=== PATIENT | male | born 1950 | race Caucasian/White ===

== ENCOUNTER 2020-05-25 12:49 | Outpatient (RCR) | payer MEDICARE, MEDICAID, SELFPAY | END 2020-08-03 11:00 | disposition home or self-care (01) | LOC: HO.WCC 12:49 | PROVIDERS: PCP Physician Assistant; Visit Provider Physician Assistant | DX: L89.153 Pressure ulcer of sacral region, stage 3 (principal); L89.151 Pressure ulcer of sacral region, stage 1; K61.39 Other ischiorectal abscess; F20.9 Schizophrenia, unspecified; B19.20 Unspecified viral hepatitis C without hepatic coma; Z79.2 Long term (current) use of antibiotics | CPT/HCPCS: 10060; 11042; 97597; 99212; 99213; 99214 ==

== ENCOUNTER 2020-06-19 08:29 | Outpatient (REF) | payer MEDICARE, MEDICAID, SELFPAY ==
[2020-06-19 09:20] LABS: Hematocrit 48.2 % (42-52); Hemoglobin 16.5 g/dl (14.0-18.0); Mean Corpuscular HGB Conc 34.2 g/dl (31.0-36.0); Mean Corpuscular Hemoglobin 32.9 pg (27.0-33.0); Mean Platelet Volume 9.2 fL (9.4-12.4); Platelet Count 192 X10*3/uL (160-400); Red Blood Count 5.02 X10*6/uL (4.60-5.80); Red Cell Distribution Width 13.2 % (11.0-16.0); White Blood Count 4.3 X10*3/uL (4.8-10.8)
[2020-06-19 09:25] LABS: Estimated Average Glucose 91 mg/dL; Hemoglobin A1c % 4.8 %
[2020-06-19 09:40] LABS: Alanine Aminotransferase 97 U/L (0-40); Albumin Level 4.3 g/dL (3.5-5.0); Alkaline Phosphatase 72 U/L (39-117); Anion Gap 14 (12-20); Aspartate Amino Transferase 55 U/L (5-37); Bilirubin Total 1.3 mg/dL (0.0-1.0); Blood Urea Nitrogen 32 mg/dL (9-16); Carbon Dioxide 23 mmol/L (22-29); Chloride 109 mmol/L (96-108); Cholesterol 183 mg/dL; Estimated Glomerular Filt Rate 42; Glucose Fasting 97 mg/dL (60-99); HDL Cholesterol 46 mg/dL; LDL Cholesterol Calculated 112 mg/dl; Sodium 141 mmol/L (135-145); Triglycerides 128 mg/dL
[2020-06-19 10:02] LABS: TSH reflex Free T4 1.55 uIU/mL (0.32-4.0)
[2020-06-21 15:21] LABS: HCV Log PCR 5.38 Log IU/mL (NOT DETECTED); HepC Viral Load 241000 IU/mL (NOT DETECTED)
== END 2020-06-19 08:30 | disposition home or self-care (01) ==
LOC: HO.LAB 08:29
PROVIDERS: PCP Physician Assistant; Visit Provider Physician Assistant
DX: I10 Essential (primary) hypertension (principal); B18.2 Chronic viral hepatitis C; E03.9 Hypothyroidism, unspecified
CPT/HCPCS: 36415; 80053; 80061; 83036; 84443; 85027; 87522

== ENCOUNTER 2020-07-08 19:25 | Emergency (ER) | payer MEDICARE, MEDICAID, SELFPAY ==
--- NOTE | ~2020-07-08 | XR_ITS ---
EXAMINATION: XR CHEST CLINICAL INFORMATION: Altered mental status. COMPARISON: None TECHNIQUE: Frontal view of the chest was obtained. FINDINGS: Linear scarring versus atelectasis in the right lung base. No focal airspace consolidation. No pleural effusion or pneumothorax. Unremarkable cardiomediastinal silhouette. No acute osseous abnormality. XR/XR chest 1V IMPRESSION: Linear scarring versus atelectasis in the right lung base.
--- NOTE | 2020-07-08 19:31 | ED.AMS ---
HPI - Altered Mental Status General Chief Complaint: General Medical Stated Complaint: ams Time Seen by Provider: 07/08/20 19:30 Source: EMS and RN notes reviewed Mode of arrival: other Limitations: altered mental status History of Present Illness HPI narrative: Patient is 70 years old with history of schizophrenia, alcohol abuse, abd aortic aneurysm, hypothyroidism, hypertension, wheelchair dependent and minimal communicative sent from snf for decrease sensorium less communicative than before Related Data Home Medications Medication Instructions Recorded Confirmed facial-body wipes #384 ea 06/11/20 07/03/20 Previous Rx's Medication Instructions Recorded acetaminophen 650 mg 650 mg PO Q12H PRN #90 tab 05/18/20 tablet,extended release polyethylene glycol 3350 17 17 g PO DAILY #238 g 05/18/20 gram/dose oral powder artifi.tears(hypromellose)(PF) 0.3 1 drp OPHTHALMIC (EYE) BEDTIME PRN 06/11/20 % eye drops 30 Days #10 ml aspirin 81 mg tablet,delayed 81 mg PO DAILY #90 tab 06/11/20 release cholecalciferol (vitamin D3) 1,250 1,250 mcg PO .QMONTH #12 cap 06/11/20 mcg (50,000 unit) capsule citalopram 10 mg tablet 10 mg PO DAILY 90 Days #90 tab 06/11/20 citalopram 20 mg tablet 20 mg PO DAILY 90 Days #90 tab 06/11/20 disposable gloves #1000 ea 06/11/20 enalapril maleate 5 mg tablet 5 mg PO DAILY #90 tab 06/11/20 famotidine 20 mg tablet 20 mg PO DAILY #90 tab 06/11/20 hydrocortisone 1 % topical cream 1 appl TOPICAL BID #28.4 g 06/11/20 incontinence pad, liner, disp #400 ea 06/11/20 levothyroxine 75 mcg tablet 75 mcg PO DAILY #90 tab 06/11/20 loperamide 2 mg capsule 2 mg PO BEDTIME PRN #30 cap 06/11/20 lorazepam 0.5 mg tablet 0.5 mg PO BID 30 Days #60 tab 06/11/20 ziprasidone HCl 80 mg capsule 80 mg PO BID 90 Days #180 cap 06/11/20 amlodipine 10 mg tablet 10 mg PO DAILY #90 tab 07/03/20 miscellaneous medical supply 1 ea MISCELLANEOUS ONCE 99 Days #1 07/03/20 ea olanzapine 10 mg tablet 10 mg PO BEDTIME 90 Days #90 tab 07/03/20 olanzapine 20 mg tablet 20 mg PO BEDTIME 90 Days #90 tab 07/03/20 Allergies Allergy/AdvReac Type Severity Reaction Status Date / Time clozapine Allergy Unknown Unknown Verified 07/03/20 10:00 [facility] Past Medical History Medical History Essential (primary) hypertension Hepatitis C Schizophrenia, unspecified Wound, open, buttock Surgical History No history of previous surgery Social History Social History Alcohol intake: unknown Patient Tobacco Use Status: Tobacco use Unknown Use of substances other than those prescribed or required for medical reasons: Unknown Discharge Plan Discharge Prescriptions: No Action (DME) facial-body wipes Misc See Rx Instructions .ROUTE .MEDSUPPLY Qty: 384 RF: 0 acetaminophen 650 mg tablet extended release 650 mg PO Q12H PRN (Reason: fever or pain) Qty: 90 RF: 0 polyethylene glycol 3350 17 gram/dose powder 17 g PO DAILY Qty: 238 RF: 0 olanzapine 20 mg tablet 20 mg PO BEDTIME 90 Days Qty: 90 RF: 1 olanzapine 10 mg tablet 10 mg PO BEDTIME 90 Days Qty: 90 RF: 1 amlodipine 10 mg tablet 10 mg PO DAILY Qty: 90 RF: 1 miscellaneous medical supply [facility] 1 ea miscellaneous ONCE 99 Days Qty: 1 RF: 0 levothyroxine 75 mcg tablet 75 mcg PO DAILY Qty: 90 RF: 1 aspirin [Adult Low Dose Aspirin] 81 mg tablet,delayed release (DR/EC) 81 mg PO DAILY Qty: 90 RF: 1 cholecalciferol (vitamin D3) 1,250 mcg (50,000 unit) capsule 1,250 mcg PO .QMONTH Qty: 12 RF: 1 citalopram 20 mg tablet 20 mg PO DAILY 90 Days Qty: 90 RF: 1 citalopram 10 mg tablet 10 mg PO DAILY 90 Days Qty: 90 RF: 1 enalapril maleate 5 mg tablet 5 mg PO DAILY Qty: 90 RF: 1 famotidine 20 mg tablet 20 mg PO DAILY Qty: 90 RF: 1 loperamide 2 mg capsule 2 mg PO BEDTIME PRN (Reason: loose stool) Qty: 30 RF: 0 hydrocortisone 1 % cream 1 appl topical BID Qty: 28.4 RF: 0 lorazepam 0.5 mg tablet 0.5 mg PO BID 30 Days Qty: 60 RF: 3 ziprasidone HCl 80 mg capsule 80 mg PO BID 90 Days Qty: 180 RF: 1 artifi.tears(hypromellose)(PF) 0.3 % drops 1 drp ophthalmic (eye) BEDTIME PRN (Reason: dry eye(s)) 30 Days Qty: 10 RF: 1 (DME) disposable gloves [Biobrane Gloves Large] Misc See Rx Instructions .ROUTE .MEDSUPPLY Qty: 1000 RF: 1 (DME) incontinence pad, liner, disp Pad See Rx Instructions .ROUTE .MEDSUPPLY Qty: 400 RF: 1
[2020-07-08 19:39] VITALS: BP 139/71; PULSE 86; RESP 14; TEMP 36.9; O2SAT 95; BMI 19.4
[2020-07-08 19:44] VITALS: BP 139/71; PULSE 86; RESP 14; TEMP 36.9; O2SAT 95
[2020-07-08 20:01] LABS: MANUAL DIFF FLAG NO
[2020-07-08 20:05] LABS: Basophils Percent Auto 0.6 % (0-2); Eosinophils Absolute Auto 0.1 X10*3/uL (0.0-0.4); Eosinophils Percent Auto 3.4 % (0-4); Hematocrit 42.7 % (42-52); Hemoglobin 14.9 g/dl (14.0-18.0); Imm Gran Abs Auto 0.03 X10*3/uL (0.00-0.03); Imm Gran Pct Auto 0.9 % (0.0-0.4); Lymphocytes Absolute Auto 0.8 X10*3/uL (1.2-4.9); Lymphocytes Percent Auto 21.6 % (20-40); Mean Corpuscular HGB Conc 34.9 g/dl (31.0-36.0); Mean Corpuscular Hemoglobin 33.3 pg (27.0-33.0); Mean Corpuscular Volume 95.3 fL (80-98); Monocytes Absolute Auto 0.5 X10*3/uL (0.1-1.2); Monocytes Percent Auto 14.8 % (2-11); Neutrophils Absolute Auto 2.1 X10*3/uL (2.0-8.3); Neutrophils Percent Auto 58.7 % (45-73); Platelet Count 165 X10*3/uL (160-400); Red Blood Count 4.48 X10*6/uL (4.60-5.80); Red Cell Distribution Width 12.7 % (11.0-16.0); White Blood Count 3.5 X10*3/uL (4.8-10.8)
[2020-07-08 20:08] LABS: Prothrombin Time 12.2 SEC (10.8-13.0)
--- NOTE | 2020-07-08 20:11 | ED.NAVMDI ---
HPI - Nausea/Vomiting/Diarrhea General Chief complaint: General Medical Stated complaint: ams Time Seen by Provider: 07/08/20 19:30 Source: patient, EMS and RN notes reviewed Mode of arrival: EMS Limitations: altered mental status History of Present Illness HPI Narrative: Patient is 70 years old with history of schizophrenia, alcohol abuse, abd aortic aneurysm, hypothyroidism, hypertension, wheelchair dependent and minimal communicative sent from long-term for diarrhea all day with multiple bowel movements and small amount of bright red blood also noticed low-grade fever 100. No cough no vomiting no recent use of antibiotics patient has a small sacral wound which is healing. No history of fall no shortness of breath or cough Related Data Home Medications Medication Instructions Recorded Confirmed facial-body wipes #384 ea 06/11/20 07/03/20 Previous Rx's Medication Instructions Recorded acetaminophen 650 mg 650 mg PO Q12H PRN #90 tab 05/18/20 tablet,extended release polyethylene glycol 3350 17 17 g PO DAILY #238 g 05/18/20 gram/dose oral powder artifi.tears(hypromellose)(PF) 0.3 1 drp OPHTHALMIC (EYE) BEDTIME PRN 06/11/20 % eye drops 30 Days #10 ml aspirin 81 mg tablet,delayed 81 mg PO DAILY #90 tab 06/11/20 release cholecalciferol (vitamin D3) 1,250 1,250 mcg PO .QMONTH #12 cap 06/11/20 mcg (50,000 unit) capsule citalopram 10 mg tablet 10 mg PO DAILY 90 Days #90 tab 06/11/20 citalopram 20 mg tablet 20 mg PO DAILY 90 Days #90 tab 06/11/20 disposable gloves #1000 ea 06/11/20 enalapril maleate 5 mg tablet 5 mg PO DAILY #90 tab 06/11/20 famotidine 20 mg tablet 20 mg PO DAILY #90 tab 06/11/20 hydrocortisone 1 % topical cream 1 appl TOPICAL BID #28.4 g 06/11/20 incontinence pad, liner, disp #400 ea 06/11/20 levothyroxine 75 mcg tablet 75 mcg PO DAILY #90 tab 06/11/20 loperamide 2 mg capsule 2 mg PO BEDTIME PRN #30 cap 06/11/20 lorazepam 0.5 mg tablet 0.5 mg PO BID 30 Days #60 tab 06/11/20 ziprasidone HCl 80 mg capsule 80 mg PO BID 90 Days #180 cap 06/11/20 amlodipine 10 mg tablet 10 mg PO DAILY #90 tab 07/03/20 miscellaneous medical supply 1 ea MISCELLANEOUS ONCE 99 Days #1 07/03/20 ea olanzapine 10 mg tablet 10 mg PO BEDTIME 90 Days #90 tab 07/03/20 olanzapine 20 mg tablet 20 mg PO BEDTIME 90 Days #90 tab 07/03/20 Allergies Allergy/AdvReac Type Severity Reaction Status Date / Time clozapine Allergy Unknown Unknown Verified 07/03/20 10:00 Review of Systems Review of Systems: Limited ROS because patient denies any complaints although he is having diarrhea at detention Neurologic: Reports confusion Psychiatric: Psychiatric: Reports confusion [facility] Past Medical History Medical History Essential (primary) hypertension Hepatitis C Schizophrenia, unspecified Wound, open, buttock Surgical History No history of previous surgery Social History Social History Alcohol intake: unknown Patient Tobacco Use Status: Tobacco use Unknown Use of substances other than those prescribed or required for medical reasons: Unknown Advance Directives: No Advance Directives Information Provided: No Physical Exam Vital Signs: Vital Signs: Last Vital Signs Temp 98.4 F 07/08/20 19:44 Pulse 86 07/08/20 19:44 Resp 14 07/08/20 19:44 BP 139/71 07/08/20 19:44 Pulse Ox 95 07/08/20 19:44 Body Mass Index 19.4 Const: General: comfortable, no acute distress and confusion Nutritional Appearance: thin and underweight Orientation/consciousness: oriented to person, oriented to place and confusion HENMT: Head: Yes normocephalic and Yes atraumatic Ears: hearing grossly normal bilaterally General nose exam: Normal external nose present Face and sinus: Yes normal facial exam Mouth: Normal oral and palatal mucosa present Eyes: General: appearance normal, both eyes and all related structures Conjunctivae: conjunctivae normal Sclerae: sclerae normal Neck: Neck: Yes normal visual inspection Chest: Chest palpation & inspection: normal inspection of the chest Resp: Effort & Inspection: normal respiratory effort Auscultation: clear to auscultation bilaterally Cardio: Palpation: normal PMI Rate: regular rate Rhythm: regular rhythm Heart sounds: S1 normal heart sound present and S2 normal heart sound present Peripheral pulses: Peripheral pulses 2+ throughout GI: Inspection: Yes normal to inspection Palpation (GI): Soft to palpation, nontender and no guarding Auscultation: normal bowel sounds Rectal Exam - Male: Yes visual inspection normal, Yes normal sphincter tone, Yes Abnormal stool present (Loose brown stool) and Yes heme negative stool : General: Yes no CVA tenderness Back/Spine/Pelvis: Back: no CVA tenderness Thoracic/Lumbar Spine: thoracic and lumbar spine normal to inspection Skin: Other: Small sacral decubiti oozing small amount of blood Neuro: Other: Limited lower extremity movements General: oriented to person, oriented to place, moves all extremities, CN's II-XI intact bilaterally and confusion Extrem: General: Yes normal to inspection and Yes no calf tenderness MDM - Nausea/Vomiting/Diarrhea MDM Narrative Medical decision making narrative: Patient with stable labs chest x-ray negative, urine is negative patient did not have any BM in the ER will check for COVID Lab Data Attestation: I reviewed the patient's lab results. Result diagrams: 07/08/20 19:57 07/08/20 19:57 Labs: Lab Results 07/08/20 07/08/20 07/08/20 Range/Units 19:57 19:57 19:57 WBC 3.5 L (4.8-10.8) X10*3/uL RBC 4.48 L (4.60-5.80) X10*6/uL Hgb 14.9 (14.0-18.0) g/dl Hct 42.7 (42-52) % MCV 95.3 (80-98) fL MCH 33.3 H (27.0-33.0) pg MCHC 34.9 (31.0-36.0) g/dl RDW 12.7 (11.0-16.0) % Plt Count 165 (160-400) X10*3/uL MPV 9.0 L (9.4-12.4) fL Immature Gran % (Auto) 0.9 H (0.0-0.4) % Neut % (Auto) 58.7 (45-73) % Lymph % (Auto) 21.6 (20-40) % [place] % (Auto) 14.8 H (2-11) % Eos % (Auto) 3.4 (0-4) % Baso % (Auto) 0.6 (0-2) % Lymph # (Auto) 0.8 L (1.2-4.9) X10*3/uL [place] # (Auto) 0.5 (0.1-1.2) X10*3/uL Eos # (Auto) 0.1 (0.0-0.4) X10*3/uL Baso # (Auto) 0.0 (0.0-0.2) X10*3/uL Abs Immat Gran (auto) 0.03 (0.00-0.03) X10*3/uL Absolute Neuts (auto) 2.1 (2.0-8.3) X10*3/uL Absolute Nucleated RBC 0.000 (0.0-0.012) X10*3/uL Nucleated RBC % (auto) 0.0 (0.0-0.2) /100WBC PT (10.8-13.0) SEC INR (0.9-1.1) Sodium 140 (135-145) mmol/L Potassium 4.5 (3.3-5.1) mmol/L Chloride 105 (96-108) mmol/L Carbon Dioxide 25 (22-29) mmol/L Anion Gap 15 (12-20) BUN 33 H (9-16) mg/dL Creatinine 1.57 H (0.5-1.4) mg/dL Estim Creat Clear Calc 43.0 Estimated GFR 44 Random Glucose 112 (60-115) mg/dL Calcium 8.8 D (8.4-10.2) mg/dL Total Bilirubin 1.0 (0.0-1.0) mg/dL Direct Bilirubin 0.4 (0.0-0.5) mg/dL AST 51 H (5-37) U/L ALT 79 H (0-40) U/L Alkaline Phosphatase 72 (39-117) U/L Ammonia 35 (13-55) umol/L Total Protein 6.9 (6.5-8.0) g/dL Albumin 3.8 (3.5-5.0) g/dL Lipase 56 (8-78) U/L Urine Color Urine Appearance Urine pH (5.0-8.0) Ur Specific [place] (1.005-1.025) Urine Protein (NEG-TRACE) MG/DL Urine Glucose (UA) (NEG) MG/DL Urine Ketones (NEG) MG/DL Urine Blood (NEG) Urine Nitrite (NEG) Ur Leukocyte Esterase (NEG) Stool Occult Blood (NEGATIVE) 07/08/20 07/08/20 07/08/20 Range/Units 19:57 20:12 20:12 WBC (4.8-10.8) X10*3/uL RBC (4.60-5.80) X10*6/uL Hgb (14.0-18.0) g/dl Hct (42-52) % MCV (80-98) fL MCH (27.0-33.0) pg MCHC (31.0-36.0) g/dl RDW (11.0-16.0) % Plt Count (160-400) X10*3/uL MPV (9.4-12.4) fL Immature Gran % (Auto) (0.0-0.4) % Neut % (Auto) (45-73) % Lymph % (Auto) (20-40) % [place] % (Auto) (2-11) % Eos % (Auto) (0-4) % Baso % (Auto) (0-2) % Lymph # (Auto) (1.2-4.9) X10*3/uL [place] # (Auto) (0.1-1.2) X10*3/uL Eos # (Auto) (0.0-0.4) X10*3/uL Baso # (Auto) (0.0-0.2) X10*3/uL Abs Immat Gran (auto) (0.00-0.03) X10*3/uL Absolute Neuts (auto) (2.0-8.3) X10*3/uL Absolute Nucleated RBC (0.0-0.012) X10*3/uL Nucleated RBC % (auto) (0.0-0.2) /100WBC PT 12.2 (10.8-13.0) SEC INR 1.0 (0.9-1.1) Sodium (135-145) mmol/L Potassium (3.3-5.1) mmol/L Chloride (96-108) mmol/L Carbon Dioxide (22-29) mmol/L Anion Gap (12-20) BUN (9-16) mg/dL Creatinine (0.5-1.4) mg/dL Estim Creat Clear Calc Estimated GFR Random Glucose (60-115) mg/dL Calcium (8.4-10.2) mg/dL Total Bilirubin (0.0-1.0) mg/dL Direct Bilirubin (0.0-0.5) mg/dL AST (5-37) U/L ALT (0-40) U/L Alkaline Phosphatase (39-117) U/L Ammonia (13-55) umol/L Total Protein (6.5-8.0) g/dL Albumin (3.5-5.0) g/dL Lipase (8-78) U/L Urine Color YELLOW Urine Appearance CLEAR Urine pH 6.0 (5.0-8.0) Ur Specific [place] 1.020 (1.005-1.025) Urine Protein NEG (NEG-TRACE) MG/DL Urine Glucose (UA) NEG (NEG) MG/DL Urine Ketones NEG (NEG) MG/DL Urine Blood NEG (NEG) Urine Nitrite NEG (NEG) Ur Leukocyte Esterase NEG (NEG) Stool Occult Blood NEGATIVE (NEGATIVE) Discharge Plan Discharge Prescriptions: No Action (DME) facial-body wipes Misc See Rx Instructions .ROUTE .MEDSUPPLY Qty: 384 RF: 0 acetaminophen 650 mg tablet extended release 650 mg PO Q12H PRN (Reason: fever or pain) Qty: 90 RF: 0 polyethylene glycol 3350 17 gram/dose powder 17 g PO DAILY Qty: 238 RF: 0 olanzapine 20 mg tablet 20 mg PO BEDTIME 90 Days Qty: 90 RF: 1 olanzapine 10 mg tablet 10 mg PO BEDTIME 90 Days Qty: 90 RF: 1 amlodipine 10 mg tablet 10 mg PO DAILY Qty: 90 RF: 1 miscellaneous medical supply Misc 1 ea miscellaneous ONCE 99 Days Qty: 1 RF: 0 levothyroxine 75 mcg tablet 75 mcg PO DAILY Qty: 90 RF: 1 aspirin [Adult Low Dose Aspirin] 81 mg tablet,delayed release (DR/EC) 81 mg PO DAILY Qty: 90 RF: 1 cholecalciferol (vitamin D3) 1,250 mcg (50,000 unit) capsule 1,250 mcg PO .QMONTH Qty: 12 RF: 1 citalopram 20 mg tablet 20 mg PO DAILY 90 Days Qty: 90 RF: 1 citalopram 10 mg tablet 10 mg PO DAILY 90 Days Qty: 90 RF: 1 enalapril maleate 5 mg tablet 5 mg PO DAILY Qty: 90 RF: 1 famotidine 20 mg tablet 20 mg PO DAILY Qty: 90 RF: 1 loperamide 2 mg capsule 2 mg PO BEDTIME PRN (Reason: loose stool) Qty: 30 RF: 0 hydrocortisone 1 % cream 1 appl topical BID Qty: 28.4 RF: 0 lorazepam 0.5 mg tablet 0.5 mg PO BID 30 Days Qty: 60 RF: 3 ziprasidone HCl 80 mg capsule 80 mg PO BID 90 Days Qty: 180 RF: 1 artifi.tears(hypromellose)(PF) 0.3 % drops 1 drp ophthalmic (eye) BEDTIME PRN (Reason: dry eye(s)) 30 Days Qty: 10 RF: 1 (DME) disposable gloves [Biobrane Gloves Large] Misc See Rx Instructions .ROUTE .MEDSUPPLY Qty: 1000 RF: 1 (DME) incontinence pad, liner, disp Pad See Rx Instructions .ROUTE .MEDSUPPLY Qty: 400 RF: 1
--- NOTE | 2020-07-08 20:16 | PC.NURSE ---
This RN spoke with Ruth Keenan from the [facility] that the [facility] at to obtain more information as to what brought the patient in today. Per Ruth the patient had multiple episodes of diarrhea today which consisted of blood in the stool. Additionally the patient had a fever per the facility and was shaking/seemingly unwell. Dr. Flor spoke to the facility as well to obtain information and this RN was told by Ruth Keenan to call her with any questions.
[2020-07-08 20:21] LABS: Ammonia 35 umol/L (13-55)
[2020-07-08] MEDS: 0.9 % Sodium Chloride 1,000 ML 999 ML IVCONT (20:22)
[2020-07-08 20:33] LABS: Alanine Aminotransferase 79 U/L (0-40); Albumin Level 3.8 g/dL (3.5-5.0); Alkaline Phosphatase 72 U/L (39-117); Anion Gap 15 (12-20); Aspartate Amino Transferase 51 U/L (5-37); Bilirubin Direct 0.4 mg/dL (0.0-0.5); Blood Urea Nitrogen 33 mg/dL (9-16); Calcium 8.8 mg/dL (8.4-10.2); Carbon Dioxide 25 mmol/L (22-29); Chloride 105 mmol/L (96-108); Estimated Glomerular Filt Rate 44; Glucose Random 112 mg/dL (60-115); Lipase 56 U/L (8-78); Potassium 4.5 mmol/L (3.3-5.1); Sodium 140 mmol/L (135-145); Total Protein 6.9 g/dL (6.5-8.0)
[2020-07-08 20:56] LABS: Appearance Urine CLEAR; Color Urine YELLOW; Glucose Urine UA NEG (NEG); Leukocyte Esterase Urine NEG (NEG); Nitrite Urine NEG (NEG); OBS Int Ctl Valid YES; OBS1 NEGATIVE (NEGATIVE); Urine Blood NEG (NEG); Urine Ketones NEG (NEG); Urine Protein NEG (NEG-TRACE)
[2020-07-08 21:28] LABS: COVID-19 Test Negative (Negative)
== END 2020-07-08 22:49 | disposition other institution (70) ==
PROVIDERS: Emergency Provider Internal Medicine
DX: K52.9 Noninfective gastroenteritis and colitis, unspecified (principal); R50.9 Fever, unspecified; Z20.822 Contact with and (suspected) exposure to COVID-19; R63.6 Underweight; L89.159 Pressure ulcer of sacral region, unspecified stage; I10 Essential (primary) hypertension; I71.4 Abdominal aortic aneurysm, without rupture; B19.20 Unspecified viral hepatitis C without hepatic coma; F20.9 Schizophrenia, unspecified; F10.10 Alcohol abuse, uncomplicated; Z99.3 Dependence on wheelchair; Z79.82 Long term (current) use of aspirin; Z79.899 Other long term (current) drug therapy
CPT/HCPCS: 36415; 51701; 71045; 80048; 80076; 81003; 82140; 82272; 83690; 85025; 85610; 87635; 96360; 99284

== ENCOUNTER → 2020-09-13 14:24 | Outpatient (BNVA) | payer MEDICARE, MEDICAID, SELFPAY | PROVIDERS: PCP Physician Assistant; Referring Provider Physician Assistant; Visit Provider Surgery | DX: K59.00 Constipation, unspecified (principal) | CPT/HCPCS: 99202 ==

== ENCOUNTER 2020-09-20 12:30 | Outpatient (REF) | payer MEDICARE, MEDICAID, SELFPAY ==
[2020-09-20 17:14] LABS: Ferritin 350 ng/mL (20-250)
[2020-09-21 04:29] LABS: HBc Num1 10.04 S/CO (0.00-0.79); HIV AB/AG Nonreactive (Nonreactive); HIV Num 1 0.07 S/CO (0.00-0.99); Hepatitis A Antibody IgG Nonreactive (Nonreactive); Hepatitis A Antibody IgM 0.14 Index (0-0.79); ~Hepatitis A Antibody IgG 0.73 S/CO (0.00-0.99); ~Hepatitis A Antibody IgM Nonreactive (Nonreactive)
[2020-09-21 04:39] LABS: HBS Num1 25.38 mIU/mL (0-7.99); ~Hepatitis B Surface Antibody REACTIVE (Nonreactive)
[2020-09-21 05:10] LABS: HBc Num2 10.54 S/CO; HBc Num3 10.41 S/CO; Hepatitis B Core Antibody Reactive (Nonreactive)
[2020-09-21 13:27] LABS: Anti Nuclear Antibody Screen NEGATIVE (NEGATIVE)
[2020-09-21 16:02] LABS: Mitochondrial Antibodies NEGATIVE (NEGATIVE)
[2020-09-24 13:17] LABS: Alpha Fetoprotein 158.3 ng/mL (<6.1)
[2020-09-25 21:41] LABS: Hepatitis C Genotype 1a
[2020-09-26 11:17] LABS: Smooth Muscle Antibody 26 U (<20)
== END 2020-09-20 12:31 | disposition home or self-care (01) ==
LOC: HO.LAB 12:30
PROVIDERS: PCP Physician Assistant; Referring Provider Physician Assistant; Visit Provider Nurse Practitioner
DX: B18.2 Chronic viral hepatitis C (principal); R74.01 Elevation of levels of liver transaminase levels; K59.00 Constipation, unspecified; K21.9 Gastro-esophageal reflux disease without esophagitis; Z99.3 Dependence on wheelchair
CPT/HCPCS: 36415; 82105; 82728; 86038; 86039; 86255; 86256; 86704; 86706; 86708; 86709; 87389; 87902; Q3014

== ENCOUNTER 2020-10-04 12:18 | Emergency (ER) | payer MEDICARE, MEDICAID, SELFPAY ==
--- NOTE | ~2020-10-04 | XR_ITS ---
EXAMINATION: XR CHEST CLINICAL INFORMATION: Evaluate aspiration COMPARISON: Chest 07/08/2020 TECHNIQUE: Frontal view of the chest was obtained. FINDINGS: No significant abnormality is noted involving the heart, lungs, mediastinum, bony thorax or soft tissues. XR/XR chest 1V IMPRESSION: Unremarkable chest examination.
[2020-10-04 12:30] VITALS: BP 105/60; BP 116/68; PULSE 87; PULSE 88; RESP 14; TEMP 36.6; O2SAT 100; O2SAT 99; BMI 20.4
--- NOTE | 2020-10-04 12:38 | ED_ITS ---
HPI - General Adult General Chief complaint: General Medical Stated complaint: choking Time Seen by Provider: 10/04/20 12:38 Source: patient, EMS and other (staff) Mode of arrival: EMS Limitations: no limitations History of Present Illness HPI narrative: EMS states staff was being fed and choked they are worried about aspiration MD complaint: chokin episode during feed at home Onset (ago): minute(s) Severity: mild Relieving factors: none Exacerbating factors: none Associated symptoms: denies other symptoms Treatments prior to arrival: none Related Data Home Medications Medication Instructions Recorded Confirmed facial-body wipes #384 ea 06/11/20 08/21/20 Previous Rx's Medication Instructions Recorded acetaminophen 650 mg 650 mg PO Q12H PRN #90 tab 05/18/20 tablet,extended release polyethylene glycol 3350 17 17 g PO DAILY #238 g 05/18/20 gram/dose oral powder artifi.tears(hypromellose)(PF) 0.3 1 drp OPHTHALMIC (EYE) BEDTIME PRN 06/11/20 % eye drops 30 Days #10 ml aspirin 81 mg tablet,delayed 81 mg PO DAILY #90 tab 06/11/20 release (Adult Low Dose Aspirin) citalopram 10 mg tablet 10 mg PO DAILY 90 Days #90 tab 06/11/20 citalopram 20 mg tablet 20 mg PO DAILY 90 Days #90 tab 06/11/20 disposable gloves (Biobrane Gloves #1000 ea 06/11/20 Large) enalapril maleate 5 mg tablet 5 mg PO DAILY #90 tab 06/11/20 famotidine 20 mg tablet 20 mg PO DAILY #90 tab 06/11/20 hydrocortisone 1 % topical cream 1 appl TOPICAL BID #28.4 g 06/11/20 incontinence pad, liner, disp #400 ea 06/11/20 levothyroxine 75 mcg tablet 75 mcg PO DAILY #90 tab 06/11/20 loperamide 2 mg capsule 2 mg PO BEDTIME PRN #30 cap 06/11/20 lorazepam 0.5 mg tablet 0.5 mg PO BID 30 Days #60 tab 06/11/20 ziprasidone HCl 80 mg capsule 80 mg PO BID 90 Days #180 cap 06/11/20 amlodipine 10 mg tablet 10 mg PO DAILY #90 tab 07/03/20 miscellaneous medical supply 1 ea MISCELLANEOUS ONCE 99 Days #1 07/03/20 ea olanzapine 10 mg tablet 10 mg PO BEDTIME 90 Days #90 tab 07/03/20 loperamide 2 mg capsule (Imodium 2 mg PO Q4H PRN #10 cap 07/08/20 A-D) cholecalciferol (vitamin D3) 1,250 1,250 mcg PO .QMONTH #12 cap 07/17/20 mcg (50,000 unit) capsule disposable gloves (Nitrile Exam #1000 ea 07/23/20 Gloves) miscellaneous medical supply 1 ea MISCELLANEOUS DAILY 99 Days 08/01/20 #1 ea docusate sodium 100 mg tablet 100 mg PO BID PRN #60 tab 09/13/20 Allergies Allergy/AdvReac Type Severity Reaction Status Date / Time clozapine Allergy Unknown Unknown Verified 09/20/20 13:11 Review of Systems Review of Systems: ROS unable to be obtained due to altered mental status PMFSH Past Medical History Medical History Constipation Essential (primary) hypertension ETOH abuse Hepatitis C History of femur fracture Pernicious anemia Schizophrenia, unspecified Wound, open, buttock Surgical History No history of previous surgery Social History Social History Housing: Assisted Living Facility Alcohol intake: unknown Patient Tobacco Use Status: Never used Tobacco e-Cigarette/Vaping Use: Never Used Second Hand Smoke Exposure: No Advance Directives: No Advance Directives Information Provided: No service: No Current occupational status: disabled Physical Exam Vital Signs: Vital Signs: Last Vital Signs Temp 98 F 10/04/20 12:30 Pulse 87 10/04/20 12:30 Resp 14 10/04/20 12:30 BP 116/68 10/04/20 12:30 Pulse Ox 100 10/04/20 12:30 Body Mass Index 20.4 Appearance: Alert. Confused No acute distress. Eyes: Pupils equal, round and reactive to light. ENT: Pharynx normal. Tolerating secretions Neck: Normal inspection. Neck supple. CVS: Normal heart rate and rhythm. Pulses normal. Respiratory: No respiratory distress. Breath sounds normal. Abdomen: Soft and nontender. Skin: Skin warm and dry. Normal skin color. Normal skin turgor. Extremities: No lower extremity edema. No calf ttp Neuro: Confused but pleasant No motor deficit. No sensory deficit. Course Course Course Narrative: stable for DC, no choking in ED able to swallow with RN 100% on RA, CXR negative Medical Decision Making [facility] Narrative Medical decision making narrative: 70 yo male with schizophreni, tremors, SCI, unsteady gait, BPH, GERD, HTN here with possible aspiration while being fed at care home. 100% on RA. CXR for aspiration Discharge Plan Discharge Clinical Impression: Choking episode Patient Disposition: Home, Self-Care Instructions: Aspiration Precautions (ED) Additional Instructions: return to ED for any worsening symptoms or concerns 100% on room air, no choking on swallow trial in the ED initial chest xray negative but it can take a couple of days to develop pneumonia please monitor for fevers, increased difficulty breathing, coarse cough Prescriptions: No Action (DME) facial-body wipes Misc See Rx Instructions .ROUTE .MEDSUPPLY Qty: 384 RF: 0 cholecalciferol (vitamin D3) 1,250 mcg (50,000 unit) capsule 1,250 mcg PO .QMONTH Qty: 12 RF: 3 miscellaneous medical supply Misc 1 ea miscellaneous DAILY 99 Days Qty: 1 RF: 0 loperamide [Imodium A-D] 2 mg capsule 2 mg PO Q4H PRN (Reason: loose stool) Qty: 10 RF: 0 acetaminophen 650 mg tablet extended release 650 mg PO Q12H PRN (Reason: fever or pain) Qty: 90 RF: 0 polyethylene glycol 3350 17 gram/dose powder 17 g PO DAILY Qty: 238 RF: 0 olanzapine 10 mg tablet 10 mg PO BEDTIME 90 Days Qty: 90 RF: 1 amlodipine 10 mg tablet 10 mg PO DAILY Qty: 90 RF: 1 miscellaneous medical supply Misc 1 ea miscellaneous ONCE 99 Days Qty: 1 RF: 0 levothyroxine 75 mcg tablet 75 mcg PO DAILY Qty: 90 RF: 1 aspirin [Adult Low Dose Aspirin] 81 mg tablet,delayed release (DR/EC) 81 mg PO DAILY Qty: 90 RF: 1 citalopram 20 mg tablet 20 mg PO DAILY 90 Days Qty: 90 RF: 1 citalopram 10 mg tablet 10 mg PO DAILY 90 Days Qty: 90 RF: 1 enalapril maleate 5 mg tablet 5 mg PO DAILY Qty: 90 RF: 1 famotidine 20 mg tablet 20 mg PO DAILY Qty: 90 RF: 1 loperamide 2 mg capsule 2 mg PO BEDTIME PRN (Reason: loose stool) Qty: 30 RF: 0 hydrocortisone 1 % cream 1 appl topical BID Qty: 28.4 RF: 0 lorazepam 0.5 mg tablet 0.5 mg PO BID 30 Days Qty: 60 RF: 3 ziprasidone HCl 80 mg capsule 80 mg PO BID 90 Days Qty: 180 RF: 1 artifi.tears(hypromellose)(PF) 0.3 % drops 1 drp ophthalmic (eye) BEDTIME PRN (Reason: dry eye(s)) 30 Days Qty: 10 RF: 1 (DME) disposable gloves [Biobrane Gloves Large] Misc See Rx Instructions .ROUTE .MEDSUPPLY Qty: 1000 RF: 1 (DME) incontinence pad, liner, disp Pad See Rx Instructions .ROUTE .MEDSUPPLY Qty: 400 RF: 1 (DME) disposable gloves [Nitrile Exam Gloves] Misc See Rx Instructions .ROUTE .MEDSUPPLY Qty: 1000 RF: 0 docusate sodium 100 mg tablet 100 mg PO BID PRN (Reason: constipation) Qty: 60 RF: 2
--- NOTE | 2020-10-04 14:20 | PC.NURSE ---
swallow eval performed and patient tolerated thickened liquids welll with no difficulty or evidence of aspiration
--- NOTE | 2020-10-04 14:48 | PC.NURSE ---
waiting for transportation via ambulance to arrive. sarthak from [facility] informed of patients discharge and events occurring within this facility.
[2020-10-04 15:22] VITALS: BP 107/63; PULSE 77; RESP 16; TEMP 36.4; O2SAT 98
== END 2020-10-04 16:05 | disposition home or self-care (01) ==
PROVIDERS: Emergency Provider Emergency Medicine; PCP Physician Assistant
DX: Z03.822 Encounter for observation for suspected aspirated (inhaled) foreign body ruled out (principal); I12.9 Hypertensive chronic kidney disease with stage 1 through stage 4 chronic kidney disease, or unspecified chronic kidney disease; N18.30 Chronic kidney disease, stage 3 unspecified; B19.20 Unspecified viral hepatitis C without hepatic coma; F17.210 Nicotine dependence, cigarettes, uncomplicated; F20.9 Schizophrenia, unspecified; Z79.899 Other long term (current) drug therapy; Z79.82 Long term (current) use of aspirin
CPT/HCPCS: 71045; 99283; 99284

== ENCOUNTER 2020-12-04 09:56 | Outpatient (REF) | payer MEDICARE, MEDICAID, SELFPAY ==
[2020-12-04 10:47] LABS: Hematocrit 37.8 % (42-52); Hemoglobin 12.4 g/dl (14.0-18.0); Mean Corpuscular HGB Conc 32.8 g/dl (31.0-36.0); Mean Corpuscular Hemoglobin 32.1 pg (27.0-33.0); Mean Corpuscular Volume 97.9 fL (80-98); Mean Platelet Volume 9.5 fL (9.4-12.4); Platelet Count 222 X10*3/uL (160-400); Red Blood Count 3.86 X10*6/uL (4.60-5.80); Red Cell Distribution Width 15.2 % (11.0-16.0); White Blood Count 4.4 X10*3/uL (4.8-10.8)
[2020-12-04 11:15] LABS: Alanine Aminotransferase 43 U/L (0-40); Albumin Level 3.6 g/dL (3.5-5.0); Alkaline Phosphatase 79 U/L (39-117); Anion Gap 11 (12-20); Aspartate Amino Transferase 26 U/L (5-37); Bilirubin Total 0.5 mg/dL (0.0-1.0); Blood Urea Nitrogen 40 mg/dL (9-16); Calcium 9.7 mg/dL (8.4-10.2); Carbon Dioxide 26 mmol/L (22-29); Chloride 112 mmol/L (96-108); Cholesterol 150 mg/dL; Estimated Glomerular Filt Rate 35; Glucose Fasting 87 mg/dL (60-99); HDL Cholesterol 35 mg/dL; Iron 141 mcg/dL (45-160); LDL Cholesterol Calculated 89 mg/dl; Percent Iron Saturation 42 % (15-50); Potassium 4.9 mmol/L (3.3-5.1); Sodium 144 mmol/L (135-145); Total Iron Binding Capacity 335 mcg/dL (228-428); Total Protein 6.8 g/dL (6.5-8.0); Triglycerides 130 mg/dL; Unsaturated Iron Binding 194 ug/dL
[2020-12-04 11:40] LABS: Prostate Specific Antigen Scr 1.67 ng/mL (<0.05-4.0); TSH reflex Free T4 2.06 uIU/mL (0.32-4.0)
[2020-12-06 18:02] LABS: Hepatitis B Viral DNA Qn - cp <1.00 NOT DETECTED Log IU/mL (NOT DETECTED); Hepatitis B Viral DNA Qn-IU/mL <10 NOT DETECTED IU/mL (NOT DETECTED)
== END 2020-12-04 09:57 | disposition home or self-care (01) ==
LOC: HO.US 09:56
PROVIDERS: Absent Provider Physician Assistant; PCP Physician Assistant; Visit Provider Nurse Practitioner
DX: Z12.5 Encounter for screening for malignant neoplasm of prostate (principal); R76.8 Other specified abnormal immunological findings in serum; R74.01 Elevation of levels of liver transaminase levels; I10 Essential (primary) hypertension; I51.7 Cardiomegaly; D50.9 Iron deficiency anemia, unspecified
CPT/HCPCS: 36415; 80053; 80061; 83540; 84153; 84443; 85027; 87517

== ENCOUNTER 2021-02-27 08:09 | Outpatient (REF) | payer MEDICARE, MEDICAID, SELFPAY ==
--- NOTE | ~2021-02-27 | US_ITS ---
EXAMINATION: US ABDOMEN LIMITED WITH LIVER ELASTOGRAPHY CLINICAL INFORMATION: R74.01 - Elevation of levels of liver transaminase levels COMPARISON: None. TECHNIQUE: Real-time imaging of the abdominal viscera. Noninvasive ultrasound liver fibrosis assessment is performed using Serena ElastPQ point quantification shear wave elastography (2D-SWE) with a C5-2 MHz transducer. Multiple elastography samples are obtained. Technically challenging and limited exam secondary to patient body habitus, scanning patient in wheelchair, and bowel gas. FINDINGS: PANCREAS: The visualized pancreas appears normal in size and echogenicity. There is no pancreatic ductal distention or visible retroperitoneal effusion. Distal body and tail obscured by bowel gas and not completely imaged. LIVER: Technically limited exam. Liver appears within normal size and smooth in contour. There is likely mild increased hepatic parenchymal echogenicity suggesting hepatic steatosis. No visible focal hepatic parenchymal lesion by ultrasound. No intrahepatic ductal dilatation. The right lobe measures 14.8 cm in length. The left lobe measures 6.8 cm in length. Portal flow is towards the liver (hepatopetal). Shear wave liver elastography median stiffness is 1.94 m/s (reference: normal median stiffness is 1.3 m/s or less). IQR/median stiffness to assess sampling precision is 0.22 (reference: good quality data set is IQR/median stiffness of 0.15 or less). GALLBLADDER: Not visualized. COMMON BILE DUCT: Not visualized with certainty. RIGHT KIDNEY: Right kidney measures approximately 8.5 cm in length. There is no hydronephrosis or visible calculi. Simple cyst noted upper pole 1.3 x 0.7 x 1.1 cm. No additional imaging follow-up required. FREE FLUID: Ascites not visualized. US/US abdomen frey w elastography IMPRESSION: 1. Patient study limitations, technically challenging exam. 2. Gallbladder and common duct not visualized. No intrahepatic biliary ductal dilatation. 3. Portions of pancreatic body and tail obscured by bowel gas. Visualized pancreas unremarkable. 4. Liver normal in size. No visible focal hepatic parenchymal lesion. Probable steatosis. Although elastography measurements are suggestive of compensated advanced chronic liver disease, there is statistical variability of the sampling which decreases accuracy. REFERENCE: Society of Radiologists in Ultrasound Liver Stiffness Thresholds (2019): LIVER STIFFNESS THRESHOLDS: *Liver Stiffness equal or less than 1.3 m/s: High probability of being normal. *Liver Stiffness less than 1.7 m/s: In the absence of other known clinical signs, rules out compensated advanced chronic liver disease. *Liver Stiffness 1.7-2.1 m/s: Suggestive of compensated advanced chronic liver disease but need further test for confirmation. *Liver Stiffness over 2.1 m/s: Rules in compensated advanced chronic liver disease. *Liver Stiffness over 2.4 m/s: Suggestive of clinically significant portal hypertension. QUALITY OF DATA SET: *IQR/Median value equal or less than 0.15 implies a quality data set. *IQR/Median value over 0.15 implies a poor quality data set. SIGNIFICANT CHANGE FROM PRIOR EXAM: Significant change if liver stiffness measurement is 10% or greater from prior exam. OTHER CONSIDERATIONS: The stage of liver fibrosis may be overestimated in the setting of acute hepatitis, liver inflammation, elevated liver function tests, hepatic vascular congestion, obstructive cholestasis, non-fasting state, and infiltrative diseases such as amyloidosis and lymphoma. In some patients with NAFLD, the liver stiffness thresholds for compensated advanced chronic liver disease may be lower. In causes other than viral hepatitis and NAFLD, liver stiffness thresholds are not well established.
== END 2021-02-27 08:10 | disposition home or self-care (01) ==
LOC: HO.US 08:09
PROVIDERS: Visit Provider Nurse Practitioner
DX: R74.01 Elevation of levels of liver transaminase levels (principal); B18.2 Chronic viral hepatitis C
CPT/HCPCS: 76705; 76981

== ENCOUNTER → 2021-03-05 10:56 | Outpatient (BNVA) | payer MEDICARE, MEDICAID, SELFPAY | PROVIDERS: PCP Physician Assistant; Referring Provider Physician Assistant; Visit Provider Nurse Practitioner | DX: B18.2 Chronic viral hepatitis C (principal); R76.8 Other specified abnormal immunological findings in serum; R74.01 Elevation of levels of liver transaminase levels; R77.2 Abnormality of alphafetoprotein | CPT/HCPCS: 99212 ==

== ENCOUNTER 2021-04-23 11:42 | Outpatient (REF) | payer MEDICARE, MEDICAID, SELFPAY ==
[2021-04-23 12:11] LABS: MANUAL DIFF FLAG NO
[2021-04-23 12:43] LABS: Basophils Percent Auto 0.2 % (0-2); Eosinophils Absolute Auto 0.1 X10*3/uL (0.0-0.4); Eosinophils Percent Auto 1.9 % (0-4); Hematocrit 32.6 % (42.0-52.0); Hemoglobin 10.5 g/dl (14.0-18.0); Imm Gran Abs Auto 0.02 X10*3/uL (0.00-0.03); Imm Gran Pct Auto 0.4 % (0.0-0.4); Lymphocytes Absolute Auto 0.8 X10*3/uL (1.2-4.9); Lymphocytes Percent Auto 16.5 % (20-40); Mean Corpuscular HGB Conc 32.2 g/dl (31.0-36.0); Mean Corpuscular Hemoglobin 32.2 pg (27.0-33.0); Mean Platelet Volume 9.6 fL (9.4-12.4); Monocytes Absolute Auto 0.5 X10*3/uL (0.1-1.2); Monocytes Percent Auto 10.7 % (2-11); Neutrophils Absolute Auto 3.4 x10*3/uL (2.0-8.3); Neutrophils Percent Auto 70.3 % (45-73); Platelet Count 207 X10*3/uL (160-400); Red Blood Count 3.26 X10*6/uL (4.60-5.80); Red Cell Distribution Width 16.1 % (11.0-16.0); White Blood Count 4.9 X10*3/uL (4.8-10.8)
[2021-04-23 13:17] LABS: Alanine Aminotransferase 12 U/L (0-40); Albumin Level 3.2 g/dL (3.5-5.0); Alkaline Phosphatase 86 U/L (39-117); Anion Gap 13 (12-20); Aspartate Amino Transferase 12 U/L (5-37); Bilirubin Total 0.4 mg/dL (0.0-1.0); Blood Urea Nitrogen 24 mg/dL (9-16); Calcium 9.3 mg/dL (8.4-10.2); Carbon Dioxide 24 mmol/L (22-29); Chloride 108 mmol/L (96-108); Cholesterol 170 mg/dL; Estimated Glomerular Filt Rate > 60; Glucose Fasting 103 mg/dL (60-99); HDL Cholesterol 39 mg/dL; Iron 34 mcg/dL (45-160); LDL Cholesterol Calculated 108 mg/dl; Potassium 4.1 mmol/L (3.3-5.1); Sodium 141 mmol/L (135-145); Total Protein 6.7 g/dL (6.5-8.0); Triglycerides 117 mg/dL
[2021-04-23 13:22] LABS: TSH reflex Free T4 2.35 uIU/mL (0.32-4.0)
[2021-04-23 13:35] LABS: Percent Iron Saturation 11 % (15-50); Total Iron Binding Capacity 319 mcg/dL (228-428); Unsaturated Iron Binding 285 ug/dL
[2021-04-23 14:03] LABS: Estimated Average Glucose 77 mg/dL; Hemoglobin A1c % 4.3 %
[2021-04-26 10:32] LABS: HCV Log PCR <1.18 NOT DETECTED Log IU/mL (NOT DETECTED); HepC Viral Load <15 NOT DETECTED IU/mL (NOT DETECTED)
== END 2021-04-23 11:43 | disposition home or self-care (01) ==
LOC: HO.LAB 11:42
PROVIDERS: PCP Physician Assistant; Visit Provider Nurse Practitioner
DX: I10 Essential (primary) hypertension (principal); D50.9 Iron deficiency anemia, unspecified; K21.9 Gastro-esophageal reflux disease without esophagitis; B18.2 Chronic viral hepatitis C
CPT/HCPCS: 36415; 80053; 80061; 83036; 83540; 84443; 85025; 85027; 87522

== ENCOUNTER 2021-04-24 08:09 | Outpatient (REF) | payer MEDICARE, MEDICAID, SELFPAY | END 2021-04-24 08:10 | disposition home or self-care (01) | LOC: HO.LAB 08:09 | PROVIDERS: PCP Physician Assistant; Visit Provider Nurse Practitioner | DX: Z13.89 Encounter for screening for other disorder (principal) ==

== ENCOUNTER 2021-05-15 09:54 | Outpatient (REF) | payer MEDICARE, MEDICAID, SELFPAY ==
[2021-05-15 11:02] LABS: Hematocrit 32.5 % (42.0-52.0); Hemoglobin 10.6 g/dl (14.0-18.0); Mean Corpuscular HGB Conc 32.6 g/dl (31.0-36.0); Mean Corpuscular Hemoglobin 31.9 pg (27.0-33.0); Mean Corpuscular Volume 97.9 fL (80.0-98.0); Red Blood Count 3.32 X10*6/uL (4.60-5.80); White Blood Count 3.5 X10*3/uL (4.8-10.8)
[2021-05-15 11:48] LABS: Band Neutrophils Percent 4 % (3-5); Cortisol Random 10.2 ug/dL; Eosinophils Absolute Manual 0.1 X10*3/uL (0.0-0.4); Eosinophils Percent Manual 2 % (0-4); Lymphocytes Absolute Manual 0.7 X10*3/uL (1.2-4.9); Lymphocytes Percent Manual 19 % (20-40); Monocytes Absolute Manual 0.4 X10*3/uL (0.1-1.2); Monocytes Percent Manual 12 % (2-11); Neutrophils Absolute Manual 2.3 X10*3/uL (2.0-8.3); Neutrophils Percent Manual 63 % (45-73)
[2021-05-15 11:50] LABS: Hypochromasia 1+ (5-14) /OIF; Ovalocytes 1+ (5-14) /OIF; Platelet Estimate DECREASED (NORMAL); Platelet Morphology Comment NORMAL; RBC Morphology NOTED
[2021-05-15 11:51] LABS: Mean Platelet Volume 9.7 fL (9.4-12.4); Platelet Count 105 X10*3/uL (160-400)
[2021-05-15 11:56] LABS: Alanine Aminotransferase 11 U/L (0-40); Albumin Level 3.1 g/dL (3.5-5.0); Alkaline Phosphatase 80 U/L (39-117); Anion Gap 12 (12-20); Aspartate Amino Transferase 11 U/L (5-37); Bilirubin Total 0.5 mg/dL (0.0-1.0); Blood Urea Nitrogen 22 mg/dL (9-16); Calcium 9.1 mg/dL (8.4-10.2); Carbon Dioxide 23 mmol/L (22-29); Chloride 108 mmol/L (96-108); Estimated Glomerular Filt Rate 60; Glucose Random 134 mg/dL (60-115); Potassium 3.7 mmol/L (3.3-5.1); Sodium 139 mmol/L (135-145); Total Protein 6.5 g/dL (6.5-8.0)
[2021-05-15 11:57] LABS: TSH reflex Free T4 1.36 uIU/mL (0.32-4.0)
[2021-05-15 12:00] LABS: Folate 4.2 ng/mL (> or = 4.0); Vitamin B12 241 pg/mL (200-900)
[2021-05-17 13:07] LABS: HCV Log PCR <1.18 NOT DETECTED Log IU/mL (NOT DETECTED); HepC Viral Load <15 NOT DETECTED IU/mL (NOT DETECTED)
== END 2021-05-15 09:55 | disposition home or self-care (01) ==
LOC: HO.LAB 09:54
PROVIDERS: Absent Provider Nurse Practitioner; PCP Physician Assistant; Visit Provider Nurse Practitioner Family
DX: B18.2 Chronic viral hepatitis C (principal); I10 Essential (primary) hypertension; E27.40 Unspecified adrenocortical insufficiency
CPT/HCPCS: 36415; 80053; 82306; 82533; 82607; 82746; 84443; 85007; 85025; 85027; 87522

== ENCOUNTER 2021-05-24 09:18 | Outpatient (REF) | payer MEDICARE, MEDICAID, SELFPAY ==
[2021-05-24 09:49] LABS: MANUAL DIFF FLAG NO
[2021-05-24 10:19] LABS: Basophils Percent Auto 0.3 % (0-2); Eosinophils Absolute Auto 0.1 X10*3/uL (0.0-0.4); Hematocrit 35.9 % (42.0-52.0); Hemoglobin 11.5 g/dl (14.0-18.0); Imm Gran Abs Auto 0.05 X10*3/uL (0.00-0.03); Imm Gran Pct Auto 0.8 % (0.0-0.4); Lymphocytes Absolute Auto 1.2 X10*3/uL (1.2-4.9); Lymphocytes Percent Auto 19.8 % (20-40); Mean Corpuscular Hemoglobin 31.3 pg (27.0-33.0); Mean Corpuscular Volume 97.6 fL (80.0-98.0); Mean Platelet Volume 9.1 fL (9.4-12.4); Monocytes Absolute Auto 0.6 X10*3/uL (0.1-1.2); Monocytes Percent Auto 9.5 % (2-11); Neutrophils Absolute Auto 4.1 x10*3/uL (2.0-8.3); Neutrophils Percent Auto 68.6 % (45-73); Platelet Count 181 X10*3/uL (160-400); Red Blood Count 3.68 X10*6/uL (4.60-5.80); Red Cell Distribution Width 14.9 % (11.0-16.0)
[2021-05-24 10:51] LABS: Alanine Aminotransferase 13 U/L (0-40); Albumin Level 3.2 g/dL (3.5-5.0); Alkaline Phosphatase 89 U/L (39-117); Anion Gap 13 (12-20); Aspartate Amino Transferase 14 U/L (5-37); Bilirubin Total 0.2 mg/dL (0.0-1.0); Blood Urea Nitrogen 31 mg/dL (9-16); Calcium 9.6 mg/dL (8.4-10.2); Carbon Dioxide 25 mmol/L (22-29); Chloride 111 mmol/L (96-108); Estimated Glomerular Filt Rate 36; Glucose Random 65 mg/dL (60-115); Potassium 4.7 mmol/L (3.3-5.1); Sodium 144 mmol/L (135-145); Total Protein 6.9 g/dL (6.5-8.0)
[2021-05-26 13:46] LABS: HCV Log PCR <1.18 NOT DETECTED Log IU/mL (NOT DETECTED); HepC Viral Load <15 NOT DETECTED IU/mL (NOT DETECTED)
== END 2021-05-24 09:19 | disposition home or self-care (01) ==
LOC: HO.LAB 09:18
PROVIDERS: PCP Physician Assistant; Visit Provider Nurse Practitioner
DX: B18.2 Chronic viral hepatitis C (principal)
CPT/HCPCS: 36415; 80053; 85025; 87522

== ENCOUNTER 2021-06-12 09:30 | Outpatient (REF) | payer MEDICARE, MEDICAID, SELFPAY ==
[2021-06-12 09:50] LABS: MANUAL DIFF FLAG NO
[2021-06-12 10:29] LABS: Basophils Percent Auto 0.3 % (0-2); Eosinophils Absolute Auto 0.1 X10*3/uL (0.0-0.4); Eosinophils Percent Auto 3.1 % (0-4); Hematocrit 35.1 % (42.0-52.0); Hemoglobin 11.5 g/dl (14.0-18.0); Imm Gran Abs Auto 0.01 X10*3/uL (0.00-0.03); Imm Gran Pct Auto 0.3 % (0.0-0.4); Mean Corpuscular HGB Conc 32.8 g/dl (31.0-36.0); Mean Corpuscular Hemoglobin 31.9 pg (27.0-33.0); Mean Corpuscular Volume 97.5 fL (80.0-98.0); Monocytes Absolute Auto 0.3 X10*3/uL (0.1-1.2); Neutrophils Absolute Auto 2.1 x10*3/uL (2.0-8.3); Neutrophils Percent Auto 59.3 % (45-73); Platelet Count 137 X10*3/uL (160-400); Red Cell Distribution Width 15.5 % (11.0-16.0); White Blood Count 3.6 X10*3/uL (4.8-10.8)
[2021-06-12 10:52] LABS: Alanine Aminotransferase 26 U/L (0-40); Albumin Level 3.3 g/dL (3.5-5.0); Alkaline Phosphatase 93 U/L (39-117); Anion Gap 11 (12-20); Aspartate Amino Transferase 23 U/L (5-37); Bilirubin Total 0.4 mg/dL (0.0-1.0); Blood Urea Nitrogen 38 mg/dL (9-16); Calcium 9.3 mg/dL (8.4-10.2); Carbon Dioxide 25 mmol/L (22-29); Chloride 109 mmol/L (96-108); Cholesterol 158 mg/dL; Estimated Glomerular Filt Rate 51; Glucose Fasting 127 mg/dL (60-99); HDL Cholesterol 44 mg/dL; LDL Cholesterol Calculated 100 mg/dl; Potassium 4.7 mmol/L (3.3-5.1); Sodium 140 mmol/L (135-145); Total Protein 6.7 g/dL (6.5-8.0); Triglycerides 74 mg/dL
[2021-06-12 11:13] LABS: TSH reflex Free T4 1.33 uIU/mL (0.32-4.0)
== END 2021-06-12 09:31 | disposition home or self-care (01) ==
LOC: HO.LAB 09:30
PROVIDERS: Nurse Practitioner; Absent Provider Nurse Practitioner Family; PCP Physician Assistant; Visit Provider Physician Assistant
DX: E03.9 Hypothyroidism, unspecified (principal); E78.00 Pure hypercholesterolemia, unspecified; N18.30 Chronic kidney disease, stage 3 unspecified; B18.2 Chronic viral hepatitis C
CPT/HCPCS: 36415; 80053; 80061; 84443; 85025

== ENCOUNTER → 2021-06-20 09:53 | Outpatient (BNVA) | payer MEDICARE, MEDICAID, SELFPAY | PROVIDERS: PCP Physician Assistant; Referring Provider Physician Assistant; Visit Provider Nurse Practitioner | DX: B18.2 Chronic viral hepatitis C (principal); F20.9 Schizophrenia, unspecified; R76.8 Other specified abnormal immunological findings in serum; K59.04 Chronic idiopathic constipation | CPT/HCPCS: 99212 ==

== ENCOUNTER 2021-06-27 07:59 | Outpatient (RCR) | payer MEDICARE, MEDICAID, SELFPAY | END 2021-08-22 13:03 | disposition home or self-care (01) | LOC: HO.WCC 07:59 | PROVIDERS: PCP Physician Assistant; Visit Provider Surgery | DX: Z09 Encounter for follow-up examination after completed treatment for conditions other than malignant neoplasm (principal); F20.9 Schizophrenia, unspecified; Z87.2 Personal history of diseases of the skin and subcutaneous tissue | CPT/HCPCS: 11042; 99212 ==

== ENCOUNTER → 2021-07-12 11:22 | Outpatient (BNVA) | payer MEDICARE, MEDICAID, SELFPAY | PROVIDERS: PCP Physician Assistant; Referring Provider Physician Assistant; Visit Provider Nurse Practitioner | DX: K59.04 Chronic idiopathic constipation (principal) | CPT/HCPCS: 99212 ==

== ENCOUNTER 2021-07-30 12:15 | Outpatient (REF) | payer MEDICARE, MEDICAID, SELFPAY ==
[2021-07-30 13:06] LABS: Hemoglobin 11.9 g/dl (14.0-18.0); Mean Corpuscular HGB Conc 32.2 g/dl (31.0-36.0); Mean Corpuscular Volume 99.5 fL (80.0-98.0); Platelet Count 181 X10*3/uL (160-400); Red Blood Count 3.72 X10*6/uL (4.60-5.80); Red Cell Distribution Width 15.2 % (11.0-16.0); White Blood Count 3.9 X10*3/uL (4.8-10.8)
[2021-07-30 16:06] LABS: Potassium 4.8 mmol/L (3.3-5.1)
== END 2021-07-30 12:16 | disposition home or self-care (01) ==
LOC: HO.LAB 12:15
PROVIDERS: PCP Physician Assistant; Visit Provider Physician Assistant
DX: E87.6 Hypokalemia (principal); N18.30 Chronic kidney disease, stage 3 unspecified
CPT/HCPCS: 36415; 84132; 85027

== ENCOUNTER 2021-09-06 08:38 | Outpatient (REF) | payer MEDICARE, MEDICAID, SELFPAY ==
[2021-09-06 09:16] LABS: MANUAL DIFF FLAG NO
[2021-09-06 09:30] LABS: Basophils Percent Auto 0.4 % (0-2); Eosinophils Absolute Auto 0.3 X10*3/uL (0.0-0.4); Eosinophils Percent Auto 4.9 % (0-4); Hematocrit 38.4 % (42.0-52.0); Hemoglobin 12.5 g/dl (14.0-18.0); Imm Gran Abs Auto 0.02 X10*3/uL (0.00-0.03); Imm Gran Pct Auto 0.4 % (0.0-0.4); Lymphocytes Absolute Auto 1.6 X10*3/uL (1.2-4.9); Lymphocytes Percent Auto 28.5 % (20-40); Mean Corpuscular HGB Conc 32.6 g/dl (31.0-36.0); Mean Corpuscular Hemoglobin 32.1 pg (27.0-33.0); Mean Corpuscular Volume 98.5 fL (80.0-98.0); Mean Platelet Volume 9.1 fL (9.4-12.4); Monocytes Absolute Auto 0.7 X10*3/uL (0.1-1.2); Neutrophils Percent Auto 53.8 % (45-73); Platelet Count 177 X10*3/uL (160-400); Red Cell Distribution Width 14.7 % (11.0-16.0); White Blood Count 5.5 X10*3/uL (4.8-10.8)
[2021-09-06 09:58] LABS: Alanine Aminotransferase 19 U/L (0-40); Albumin Level 3.9 g/dL (3.5-5.0); Alkaline Phosphatase 90 U/L (39-117); Anion Gap 15 (12-20); Aspartate Amino Transferase 14 U/L (5-37); Bilirubin Total 0.6 mg/dL (0.0-1.0); Blood Urea Nitrogen 35 mg/dL (9-16); Calcium 9.2 mg/dL (8.4-10.2); Carbon Dioxide 26 mmol/L (22-29); Chloride 107 mmol/L (96-108); Estimated Glomerular Filt Rate 45; Glucose Random 87 mg/dL (60-115); Potassium 4.6 mmol/L (3.3-5.1); Sodium 143 mmol/L (135-145); Total Protein 7.5 g/dL (6.5-8.0)
[2021-09-06 10:19] LABS: TSH reflex Free T4 0.93 uIU/mL (0.32-4.0)
[2021-09-10 15:46] LABS: HCV Log PCR <1.18 NOT DETECTED Log IU/mL (NOT DETECTED); HepC Viral Load <15 NOT DETECTED IU/mL (NOT DETECTED)
== END 2021-09-06 08:39 | disposition home or self-care (01) ==
LOC: HO.LAB 08:38
PROVIDERS: Physician Assistant; Visit Provider Nurse Practitioner
DX: B18.2 Chronic viral hepatitis C (principal); E03.9 Hypothyroidism, unspecified
CPT/HCPCS: 36415; 80053; 84443; 85025; 87522

== ENCOUNTER → 2021-09-12 09:58 | Outpatient (BNVA) | payer MEDICARE, MEDICAID, SELFPAY | PROVIDERS: Visit Provider Nurse Practitioner | DX: K59.04 Chronic idiopathic constipation (principal); K21.9 Gastro-esophageal reflux disease without esophagitis; B18.2 Chronic viral hepatitis C | CPT/HCPCS: 99212 ==

== ENCOUNTER → 2022-01-10 10:53 | Outpatient (BNVA) | payer MEDICARE, MEDICAID, SELFPAY | PROVIDERS: PCP Physician Assistant; Visit Provider Nurse Practitioner | DX: K59.04 Chronic idiopathic constipation (principal); K21.9 Gastro-esophageal reflux disease without esophagitis; Z79.899 Other long term (current) drug therapy | CPT/HCPCS: 99212 ==

== ENCOUNTER → 2022-02-21 10:47 | Outpatient (BNVA) | payer MEDICARE, MEDICAID, SELFPAY | PROVIDERS: PCP Physician Assistant; Referring Provider Physician Assistant; Visit Provider Nurse Practitioner | DX: K59.04 Chronic idiopathic constipation (principal); K21.9 Gastro-esophageal reflux disease without esophagitis; Z79.899 Other long term (current) drug therapy | CPT/HCPCS: 99212 ==

== ENCOUNTER → 2022-03-20 09:42 | Outpatient (BNVA) | payer MEDICARE, MEDICAID, SELFPAY | PROVIDERS: PCP Physician Assistant; Visit Provider Nurse Practitioner | DX: K21.9 Gastro-esophageal reflux disease without esophagitis (principal); K59.04 Chronic idiopathic constipation | CPT/HCPCS: 99212 ==

== ENCOUNTER 2022-03-27 10:43 | Outpatient (REF) | payer MEDICARE, MEDICAID, SELFPAY ==
--- NOTE | ~2022-03-27 | XR_ITS ---
EXAMINATION: XR ABDOMEN KUB CLINICAL INDICATION: Chronic idiopathic constipation. COMPARISON: Abdominal ultrasound dated 02/27/2021. TECHNIQUE: 3 AP views of the abdomen and pelvis are submitted. FINDINGS: The bowel gas pattern is normal with no evidence of ileus or obstruction. There is a mild stool burden. No unusual soft tissue calcifications are noted. There is no acute osseous abnormality. There is mild degenerative change of the right hip. There is orthopedic hardware applied to the proximal right femur, with an old, healed fracture of the proximal right femoral shaft partially included in the [id number]. XR/XR KUB IMPRESSION: There is a mild stool burden. No obstruction or ileus is seen. No free intraperitoneal air is seen.
[2022-03-27 11:22] LABS: MANUAL DIFF FLAG NO
[2022-03-27 11:56] LABS: Basophils Percent Auto 0.6 % (0-2); Eosinophils Absolute Auto 0.4 X10*3/uL (0.0-0.4); Eosinophils Percent Auto 8.2 % (0-4); Hematocrit 43.5 % (42.0-52.0); Hemoglobin 14.2 g/dl (14.0-18.0); Imm Gran Abs Auto 0.03 X10*3/uL (0.00-0.03); Imm Gran Pct Auto 0.6 % (0.0-0.4); Lymphocytes Absolute Auto 1.5 X10*3/uL (1.2-4.9); Lymphocytes Percent Auto 30.2 % (20-40); Mean Corpuscular HGB Conc 32.6 g/dl (31.0-36.0); Mean Corpuscular Hemoglobin 31.6 pg (27.0-33.0); Mean Corpuscular Volume 96.9 fL (80.0-98.0); Mean Platelet Volume 9.4 fL (9.4-12.4); Monocytes Absolute Auto 0.6 X10*3/uL (0.1-1.2); Monocytes Percent Auto 12.5 % (2-11); Neutrophils Absolute Auto 2.4 x10*3/uL (2.0-8.3); Neutrophils Percent Auto 47.9 % (45-73); Platelet Count 174 X10*3/uL (160-400); Red Blood Count 4.49 X10*6/uL (4.60-5.80); Red Cell Distribution Width 13.7 % (11.0-16.0)
[2022-03-27 12:38] LABS: Alanine Aminotransferase 22 U/L (0-40); Albumin Level 4.4 g/dL (3.5-5.0); Alkaline Phosphatase 88 U/L (39-117); Anion Gap 13 (12-20); Aspartate Amino Transferase 17 U/L (5-37); Bilirubin Total 0.7 mg/dL (0.0-1.0); Blood Urea Nitrogen 30 mg/dL (9-16); Calcium 9.8 mg/dL (8.4-10.2); Carbon Dioxide 22 mmol/L (22-29); Chloride 116 mmol/L (96-108); Cholesterol 176 mg/dL; Estimated Glomerular Filt Rate 40; Glucose Random 82 mg/dL (60-115); HDL Cholesterol 43 mg/dL; LDL Cholesterol Calculated 106 mg/dl; Potassium 5.2 mmol/L (3.3-5.1); Sodium 146 mmol/L (135-145); Triglycerides 139 mg/dL
[2022-03-27 12:53] LABS: Thyroid Stimulating Hormone 2.01 uIU/mL (0.32-4.0)
== END 2022-03-27 10:44 | disposition home or self-care (01) ==
LOC: HO.LAB 10:43
PROVIDERS: Internal Medicine; PCP Physician Assistant; Visit Provider Nurse Practitioner Family
DX: E03.9 Hypothyroidism, unspecified (principal); E78.5 Hyperlipidemia, unspecified; K59.04 Chronic idiopathic constipation
CPT/HCPCS: 36415; 74018; 80053; 80061; 84443; 85025

== ENCOUNTER → 2022-04-29 11:05 | Outpatient (BNVA) | payer MEDICARE, MEDICAID, SELFPAY | PROVIDERS: PCP Physician Assistant; Visit Provider Nurse Practitioner | DX: K59.04 Chronic idiopathic constipation (principal); K21.9 Gastro-esophageal reflux disease without esophagitis; Z99.3 Dependence on wheelchair | CPT/HCPCS: 99212 ==

== ENCOUNTER → 2022-06-10 10:48 | Outpatient (BNVA) | payer MEDICARE, MEDICAID, SELFPAY | PROVIDERS: PCP Physician Assistant; Visit Provider Nurse Practitioner | DX: Z12.11 Encounter for screening for malignant neoplasm of colon (principal); K59.04 Chronic idiopathic constipation; K21.9 Gastro-esophageal reflux disease without esophagitis | CPT/HCPCS: 99212 ==

== ENCOUNTER → 2022-08-22 10:07 | Outpatient (BNVA) | payer MEDICARE, MEDICAID, SELFPAY | PROVIDERS: PCP Physician Assistant; Visit Provider Nurse Practitioner | DX: K59.04 Chronic idiopathic constipation (principal); K21.9 Gastro-esophageal reflux disease without esophagitis; Z79.899 Other long term (current) drug therapy | CPT/HCPCS: 99212 ==

== ENCOUNTER 2022-08-22 10:08 | Outpatient (AMB) | payer MEDICARE, MEDICAID, SELFPAY ==
--- NOTE | 2022-08-22 10:19 | MHC.OFFVIS ---
Intake Vital Signs 08/22/22 10:24 Height 6 ft 1 in Weight 165 lb BMI 21.8 BP 142/71 H Blood Pressure Location Lt brachial Position Sitting Pulse 66 Intake Visit Reasons: 6 month follow up Intake Note: Patient follow up abdominal pain. Patient cc: abdominal pain on and off. Denies any other GI issues. Razor Sharpener Required: No Accompanied by: Employee Allergies clozapine Allergy (Unknown, Verified 08/22/22 10:17) Unknown HPI 6 month follow up HPI Details .Assessment & Plan (1) Colon cancer screening: Code(s): Z12.11 - Encounter for screening for malignant neoplasm of colon Plan: He is here today with a female staff member who is not as acquainted with his care. However, they feel he is doing well. They do not feel there is any need to change any of his GI regimen as the Linzess 290 micro g along with the bisacodyl and Colace are controlling his constipation, and the famotidine is controlling his GERD. They call the intervention manager and confirm that they never received the Cologuard kit for screening. This could be an insurance problem I will have my staff check into it. ROV 6 mos (2) Chronic idiopathic constipation: Code(s): K59.04 - Chronic idiopathic constipation (3) GERD (gastroesophageal reflux disease): Code(s): K21.9 - Gastro-esophageal reflux disease without esophagitis Cologuard Not received by [employer] TODAY'S VISIT [employer] has not received the kit, and we requested they ship another one. He continues on his GI regimen as the Linzess 290 micro g along with the bisacodyl and Colace are controlling his constipation, and the famotidine is controlling his GERD. 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 Hepatitis C History of femur fracture Hospital discharge follow-up HTN (hypertension) Hypokalemia Intentional self-harm by jumping from a high place, sequela Medicare annual wellness visit, initial Pernicious anemia Physical exam Recurrent UTI Schizophrenia, unspecified Spinal cord injury Surgical History Hx of colonoscopy No history of previous surgery S/P total hip arthroplasty Social History Housing: Assisted Living Facility Alcohol intake: never Patient Tobacco Use Status: Never used Tobacco e-Cigarette/Vaping Use: Never Used Second Hand Smoke Exposure: No Use of substances other than those prescribed or required for medical reasons: No Are you DNR?: No Advance Directives: No Advance Directives Information Provided: Yes service: No Current occupational status: disabled Cognitive needs: Yes (wheelchair) Hearing needs: No Vision needs: No Review of Systems Const Denies fatigue, Denies fever(s), Denies night sweats, Denies poor appetite and Denies weight loss ENT Reports Normal hearing present, Denies dental pain, Denies dysphagia, Denies hearing loss, Denies mouth pain, Denies odynophagia, Denies throat swelling, Denies tongue swelling and Reports other (Dentition adequate) Card Reports no additional complaints Resp Reports no additional complaints GI Denies abdominal pain, Denies melena, Denies bloating, Denies hematochezia, Reports constipation, Denies GI cramping, Denies dysphagia, Denies excessive flatus, Denies early satiety, Reports heartburn, Denies diarrhea, Denies nausea, Denies odynophagia, Denies vomiting and Denies hematemesis Skin/Breast Denies pruritus, Denies lesions, Denies rash and Denies jaundice Neuro Reports Normal hearing present and Denies Abnormal speech present Endo Denies fatigue Aller/Immun Denies throat swelling and Denies tongue swelling Physical Exam Vital Signs: Last Vital Signs Pulse 66 08/22/22 10:24 BP 142/71 H 08/22/22 10:24 BMI result Body Mass Index 21.8 Const General: cooperative, no acute distress, well developed and well groomed Nutritional Appearance: average body habitus and well nourished Orientation/consciousness: oriented to person, oriented to place and oriented to time Limitations: altered mental status, No language barrier and wheelchair HEENT Head: Yes normocephalic and Yes atraumatic Eyes General: appearance normal, both eyes and all related structures Pupils: Equal, round and reactive pupils present Neck Neck: Yes normal visual inspection and Yes no lymphadenopathy Thyroid: Thyroid normal Resp Effort & Inspection: normal respiratory effort and able to speak in complete sentences Auscultation: clear to auscultation bilaterally Cardio Rate: regular rate Rhythm: regular rhythm Heart sounds: Normal, physiologic split S2 sound present Peripheral pulses: radial pulses present and posterior tibial pulses present GI Inspection: No distended and No Abdominal panniculus present Palpation (GI): Soft to palpation, nontender, no guarding, not rigid and No hepatosplenomegaly present Percussion: Yes normal to percussion Auscultation: normal bowel sounds Rectal Exam - Male: Yes deferred Skin General skin exam: no rashes or lesions noted, turgor normal, skin not dry, no jaundice, No spider nevi and no striae Rashes: no rashes Nails: normal Neuro General: oriented to person, oriented to place and oriented to time Cranial nerves: Yes Equal, round and reactive pupils present and Yes Normal hearing present Speech: No Abnormal speech present Extrem General: Yes normal to inspection, No clubbing, No cyanosis and No edema Psych Appearance: grossly normal and well kempt Mental Status: other Affect: normal affect Attitude: cooperative Thought process: not confabulating Thought content: other Insight: Limited insight present (Psych) Judgement: Limited judgement present (Psych) Assessment & Plan Assessment & Plan (1) Chronic idiopathic constipation: Code(s): K59.04 - Chronic idiopathic constipation Plan: Cologuard Not received by [employer]. TODAY'S VISIT [employer] has not received the kit, and we requested they ship another one. He continues on his GI regimen as the Linzess 290 micro g along with the bisacodyl and Colace are controlling his constipation, and the famotidine is controlling his GERD. Return office visit in 8 weeks (2) Colon cancer screening: Code(s): Z12.11 - Encounter for screening for malignant neoplasm of colon (3) GERD (gastroesophageal reflux disease): Code(s): K21.9 - Gastro-esophageal reflux disease without esophagitis Medications: Discontinued nitrofurantoin macrocrystal must administer with a meal/food 50 mg PO DAILY 90 days 90 caps 1RF N39.0 - Urinary tract infection, site not specified melatonin 10 mg PO BEDTIME 30 days PRN 30 caps 3RF sleep Coding Level of Care Code Est Pt Level 3 (89806) Diagnoses Chronic idiopathic constipation K59.04 Colon cancer screening Z12.11 GERD (gastroesophageal reflux disease) K21.9
[2022-08-22 10:24] VITALS: BP 142/71; PULSE 66; BMI 21.8
== END 2022-08-22 10:51 | disposition home or self-care (01) ==
PROVIDERS: PCP Physician Assistant; Visit Provider Nurse Practitioner
DX: K59.04 Chronic idiopathic constipation (principal); Z12.11 Encounter for screening for malignant neoplasm of colon; K21.9 Gastro-esophageal reflux disease without esophagitis
CPT/HCPCS: 99213

== ENCOUNTER 2022-09-09 12:26 | Day surgery (SDC) | payer MEDICARE, MEDICAID, SELFPAY ==
[2022-09-05 09:15] VITALS: BMI 21.8
--- NOTE | 2022-09-09 13:53 | MHC.SHP ---
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 Hepatitis C History of femur fracture Hospital discharge follow-up HTN (hypertension) Hypokalemia Intentional self-harm by jumping from a high p) History of Previous Operations: Relevant previous surgery/procedure and date(s) (Hx of colonoscopy No history of previous surgery S/P total hip arthroplasty) Allergies: Allergies Allergy/AdvReac Type Severity Reaction Status Date / Time clozapine Allergy Unknown Unknown Verified 08/22/22 10:17 Review of Systems Sugical H&P ROS: Negative: Constitution, Cardiovascular, Respiratory and Gastrointestinal Exam Surgical H&P Exam: Normal: Heart, Normal: Lungs, Normal: Extremities and Normal: Abdomen Plan Diagnosis/Plan: Unchanged I have reviewed the history and physical and performed a pertinent physical examination on my patient. No changes have occurred unless specified. Time Spent With Patient Time: Total time managing care of this patient today ____ minutes.
[2022-09-09 14:03] VITALS: BMI 24.3
[2022-09-09 14:07] VITALS: BP 179/98; PULSE 88; RESP 18; TEMP 36.1; O2SAT 98
[2022-09-09] MEDS: Lactated Ringers 1,000 ML 50 ML IVCONT (14:29)
--- NOTE | 2022-09-09 15:01 | HO.ANESPROP2 ---
HPI - Anesthesia Eval Consult details Narrative: 72 M here for egd colonoscopy PMF Active Problems Active Problems: All Active Problems (Updated 07/02/22 @ 14:44 by Michi Hsieh PA-C) Spinal cord injury (Acute) Colon cancer screening (Acute) Toenail fungus (Acute) Recurrent UTI (Acute) Chronic idiopathic constipation (Acute) Elevated AFP (Acute) Insomnia (Acute) Easy bruisability (Acute) Transaminitis (Acute) Aortic aneurysm, abdominal (Acute) Functional urinary incontinence (Acute) Cardiomegaly (Acute) Smoker (Acute) Oropharyngeal dysphagia (Acute) High cholesterol (Acute) Chronic kidney disease, stage 3 (Acute) Adult failure to thrive (Acute) BPH (benign prostatic hyperplasia) (Acute) GERD (gastroesophageal reflux disease) (Acute) Tremor (Acute) Unsteady gait (Acute) Incontinence of feces (Acute) Dysphagia (Acute) Dry eyes (Acute) Hypothyroidism (Acute) Bruising (Acute) Claudia onychomycosis (Acute) Essential (primary) hypertension (Acute) Hepatitis C (Acute) Schizophrenia, unspecified (Acute) Past Medical History Medical History Acute diarrhea Claudia onychomycosis Decubitus ulcer of coccyx Essential (primary) hypertension ETOH abuse Fracture of lumbar spine with cord lesion 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 Hepatitis C History of femur fracture Hospital discharge follow-up HTN (hypertension) Hypokalemia Intentional self-harm by jumping from a high place, sequela Medicare annual wellness visit, initial Pernicious anemia Physical exam Recurrent UTI Schizophrenia, unspecified Spinal cord injury Family History Family history of problems with anesthesia: No Surgical History Surgical History Hx of colonoscopy No history of previous surgery S/P total hip arthroplasty History of Problems with Anesthesia: No Social History Social History Housing: Assisted Living Facility Alcohol intake: never Patient Tobacco Use Status: Never used Tobacco e-Cigarette/Vaping Use: Never Used Second Hand Smoke Exposure: No Use of substances other than those prescribed or required for medical reasons: No Are you DNR?: No Advance Directives: No Advance Directives Information Provided: Yes service: No Current occupational status: disabled Cognitive needs: Yes (wheelchair) Hearing needs: No Vision needs: No Meds Allergies Allergy/AdvReac Type Severity Reaction Status Date / Time clozapine Allergy Unknown Unknown Verified 08/22/22 10:17 Active Medications: Current Medications Lactated Ringer's (Lr) 1,000 mls @ 50 mls/hr IVCONT .Q20H SOPHIA Last Admin: 09/09/22 14:29 Dose: 50 mls/hr Ondansetron HCl (Ondansetron Hcl 4 Mg/2 Ml Vial) 4 mg IVPUSH ONCE PRN PRN Reason: Nausea and Vomiting Home Medications Medication Instructions Recorded Confirmed Last Taken Type facial-body wipes #384 ea 06/11/20 07/02/22 Unknown History lorazepam 1 mg tablet 1 mg PO DAILY 01/10/22 09/08/22 Unknown History citalopram 40 mg tablet 40 mg PO DAILY 04/29/22 09/05/22 Unknown History bisacodyl 5 mg tablet,delayed 10 mg PO DAILY PRN Constipation 09/08/22 09/08/22 Unknown History release clonidine HCl 0.1 mg tablet 0.1 mg PO DAILY PRN Agitation 09/08/22 09/08/22 Unknown History melatonin 10 mg capsule 10 mg PO BEDTIME 09/08/22 09/08/22 Unknown History nitrofurantoin macrocrystal 50 mg 50 mg PO BEDTIME 09/08/22 09/08/22 Unknown History capsule olanzapine 20 mg tablet (Zyprexa) 20 mg PO DAILY 09/08/22 09/08/22 Unknown History trazodone 50 mg tablet 50 mg PO BEDTIME 09/08/22 09/08/22 Unknown History Exam Exam Date and Time: September 09, 2022 1501 Height,Weight and Vital Signs: Height 6 ft 1 in Weight 184 lb Last Vital Signs Temp 97.0 F 09/09/22 14:07 Pulse 88 09/09/22 14:07 Resp 18 09/09/22 14:07 BP 179/98 H 09/09/22 14:07 Pulse Ox 98 09/09/22 14:07 O2 Del Method Room Air 09/09/22 14:07 Airway Mallampati Class: III TM Dist: >3cm Neck ROM: Full Denture: Upper and Lower Assessment and Plan Assessment Anesthesia Assessment: Anesthesia Plan Discussed Final Anesthetic Review Family History of Problems with Anesthesia: No History of Problems with Anesthesia: No NPO: Yes ASA Class: III Final Preanesthetic Review: No Changes in Pt Med Stat, Meds/Allgs Chart Reviewed, Consent Obtained/Reviewed and Anes Risks/Benef Reviewed Patient Risk: Intermediate Procedure Risk: Low Anesthetic Plan Anesthetic Plan: MAC: Disposition: Standard PACU
--- NOTE | 2022-09-09 15:06 | W.PM.OPN ---
Operative Note Operative Note Date of Service: 09/09/22 Narrative: FLEXIBLE TRANSORAL UPPER GASTROINTESTINAL ENDOSCOPY WITH BIOPSIES AND COLONOSCOPY TILL CECUM WITH SNARE POLYPECTOMY Pre-op diagnosis: Screening, chronic constipation, GERD Post-op diagnosis: Esophagitis, hiatal hernia, gastritis, multiple duodenal ulcers? Colon polyp, diverticulosis Endoscopist:? Tabatha Dorantes MD Anesthesia:?MAC UPPER ENDOSCOPY Consent: Indications for the procedure and potential complications of bleeding, perforation, reaction to medications and missed diagnosis were discussed with the patient and informed consent was obtained. Instrument: Olympus GIF H 190 mid size upper endoscope Monitoring: Vital signs and clinical assessment, continuous EKG monitoring, Pulse oximetry, Carbon Dioxide monitoring and blood pressure monitoring were done throughout the procedure. Procedure: The patient was placed in the left lateral decubitis position and pre-procedure medications were administered and a bite block was placed. The endoscope was inserted into the mouth and advanced under direct vision to the third part of duodenum. A careful inspection was made as the upper endoscope was withdrawn including a retroflexed examination of the proximal stomach; Findings and interventions are described below. Findings: Larynx: Normal Esophagus: Scattered yellow exudate in the upper esophagus - brushings were obtained to check for Cadida. GE junction at 36 cms, hiatal hernia 36 to 40 cms. LA grade 4 erosive esophagitis with circumferential ulcers Edematous folds on gastric side of GE jucntion with a 10 -12 mm benign appearing nodule - biopsied. A non-obstructing Schatzki's ring at GE junction. Stomach: Mild gastric erythema. Biopsies were obtained. Grade 3 flap valve on retroflexed examination of the cardia. Duodenum: Multiple 8 to 15 mm superficial ulcers covered with yellow exudate in the bulb and proximal descending duodenum - biopsies were obtained Intervention: Biopsies as noted above COLONOSCOPY PROCEDURE NOTE Consent: Indications for the procedure and potential complications of bleeding, perforation, reaction to medications and missed diagnosis were discussed with the patient and informed consent was obtained. Instrument: Olympus CF H 190 L variable stiffness adult colonoscope Monitoring: Vital signs and clinical assessment, intermittent blood pressure monitoring, continuous EKG monitoring, Pulse oximetry and Carbon Dioxide monitoring were done throughout the procedure. Colon withdrawl time was 14 minutes. Procedure: The patient was placed in the left lateral decubitis position and pre-procedure medications were administered. After a digital rectal examination of the ano-rectum, the video colonoscope was inserted into the rectum and advanced through the colon to the hepatic flexure/proximal AC. It was not possible to advance further due to long and redundant colon despite changing pt's position. The colonoscope was slowly withdrawn in a retrograde panoramic fashion and the colon mucosa was carefully examined including a retroflexed view of the rectum. Findings and interventions are described below. Procedure Difficulty: Pt was placed in the supine position and LLQ pressure was applied to intubate the ascending colon Findings: Terminal Ileum: Not evaluated Cecum: Not evaluated Ascending Colon: Not evaluated Transverse Colon: Normal Descending Colon: Moderate diverticulosis Sigmoid Colon: Moderate diverticulosis Rectum: A 10 mm sessile polyp removed with a cold snare. Ano-rectum: Normal Colon preparation: Excellent Impression and Post Procedure Diagnosis: Endoscopy Findings: LARYNX: ESOPHAGUS: Scattered yellow exudate in the upper esophagus - brushings were obtained to check for Cadida. GE junction at 36 cms, hiatal hernia 36 to 40 cms. LA grade 4 erosive esophagitis with circumferential ulcers Edematous folds on gastric side of GE jucntion with a 10 -12 mm benign appearing nodule - biopsied. A non-obstructing Schatzki's ring at GE junction. STOMACH: Mild gastritis DUODENUM: Multiple 8 to 15 mm superficial ulcers covered with yellow exudate in the bulb and proximal descending duodenum Colonoscopy Findings: One polyp removed Moderate diverticulosis seen in the left colon Incomplete colonoscopy till hepatic flexure due to long and redundant colon Plan: Await pathology results Patient has an appointment on 09/23/22 in the [facility] with Dionne Meza NP. Stool FIT test and if positive, schedule a CT colonography. Repeat Colonoscopy interval based on path results - in 3-5 years if polyps are adenomatous and can discontinue colon cancer screening if polyps are hyperplastic. Peptic ulcer disease, colon polyps and diverticulosis handouts were given in the discharge area Prescription sent for Omeprazole 20 mg twice daily for PUD and erosive esophagitis. Repeat EGD in 3-4 months after starting Omeprazole to confirm esophagitis has healed.
[2022-09-09 16:25] VITALS: BP 157/91; PULSE 89; RESP 20; TEMP 36.2; O2SAT 99
[2022-09-09 16:40] VITALS: BP 177/99; PULSE 79; RESP 20; TEMP 36.2; O2SAT 97
== END 2022-09-09 16:56 | disposition home or self-care (01) ==
PROVIDERS: PCP Physician Assistant; Visit Provider Internal Medicine Gastroenterology
PROC: (CPT 45385; principal; 2022-09-09 14:20)
DX: Z12.11 Encounter for screening for malignant neoplasm of colon (principal); K62.1 Rectal polyp; K57.30 Diverticulosis of large intestine without perforation or abscess without bleeding; K59.04 Chronic idiopathic constipation; K21.9 Gastro-esophageal reflux disease without esophagitis; K20.80 Other esophagitis without bleeding; K29.50 Unspecified chronic gastritis without bleeding; K26.9 Duodenal ulcer, unspecified as acute or chronic, without hemorrhage or perforation; K44.9 Diaphragmatic hernia without obstruction or gangrene; I10 Essential (primary) hypertension; B18.2 Chronic viral hepatitis C; F20.9 Schizophrenia, unspecified; F10.10 Alcohol abuse, uncomplicated; Z88.8 Allergy status to other drugs, medicaments and biological substances
CPT/HCPCS: 45385; 43239; 87102; 88305; 88342

== ENCOUNTER → 2022-09-09 12:26 | Outpatient (BNV) | payer MEDICARE, MEDICAID, SELFPAY | PROVIDERS: PCP Physician Assistant; Visit Provider Internal Medicine Gastroenterology | DX: Z12.11 Encounter for screening for malignant neoplasm of colon (principal); K59.04 Chronic idiopathic constipation; K21.00 Gastro-esophageal reflux disease with esophagitis, without bleeding; K29.70 Gastritis, unspecified, without bleeding; K57.30 Diverticulosis of large intestine without perforation or abscess without bleeding; K26.3 Acute duodenal ulcer without hemorrhage or perforation; D12.8 Benign neoplasm of rectum | CPT/HCPCS: 43239; 45385 ==

== ENCOUNTER 2022-09-23 11:39 | Outpatient (AMB) | payer MEDICARE, MEDICAID, SELFPAY ==
--- NOTE | 2022-09-23 11:41 | A.OFFVIS_ITS ---
Intake Vital Signs 09/23/22 11:48 Height 6 ft 1 in BP 148/71 H Blood Pressure Location Rt brachial Position Sitting Pulse 61 Comment Unable to stand on scale d/t w/c bound Intake Visit Reasons: S/p egd/colon- Jose E Intake Note: Patient presents to in office visit today in follow up of EGD/Colonoscopy. CC: Patient reports doing well today and denies having any GI concerns today. Mechanical Technologist Required: No Accompanied by: Employee Allergies clozapine Allergy (Unknown, Verified 09/23/22 11:48) Unknown HPI S/p egd/colon- Jose E HPI Details Assessment & Plan (1) Chronic idiopathic constipation: ?Code(s): K59.04 - Chronic idiopathic constipation ?Plan: Cologuard Not received by [employer]. TODAY'S VISIT [employer] has not received the kit, and we requested they ship another one.? He continues on his GI regimen as the Linzess 290 micro g along with the bisac odyl and Colace are controlling his constipation, and the famotidine is controlling his GERD. Return office visit in 8 weeks (2) Colon cancer screening: ?Code(s): Z12.11 - Encounter for screening for malignant neoplasm of colon (3) GERD (gastroesophageal reflux disease): ?Code(s): K21.9 - Gastro-esophageal reflux disease without esophagitis ? ? ? Medications: Discontinued nitrofurantoin mac rocrystal ?? must administer with a meal/food 50 mg? PO DAILY 90 days 90 caps 1RF D N39.0 - Urinary tr act infection, sit e not specified ? melatonin 10 mg? PO BEDTIME 30 days PRN 30 cap s 3RF sleep ? ? COLONOSCOPY/EGD 09/10/22 Findings: Terminal Ileum: Not evaluated Cecum:? Not evaluated Ascending Colon:??Not evaluated Transverse Colon:??Normal Descending Colon:? Moderate diverticulosis Sigmoid Colon:??Moderate diverticulosis Rectum:??A 10 mm sessile polyp removed with a cold snare. Ano-rectum:??Normal Colon preparation: Excellent ? Impression and Post Procedure Diagnosis: Endoscopy Findings: LARYNX: ESOPHAGUS: Scattered yellow exudate in the upper esophagus - brushings were obtained to check for Cadida. GE junction at 36 cms, hiatal hernia 36 to 40 cms. LA grade 4 erosive esophagitis with circumferential ulcers Edematous folds on gastric side of GE jucntion with a 10 -12 mm benign appearing nodule - biopsied. A non-obstructing Schatzki's ring at GE junction. STOMACH: Mild gastritis DUODENUM: Multiple 8 to 15 mm superficial ulcers covered with yellow exudate in the bulb and proximal descending duodenum Colonoscopy Findings: One polyp removed Moderate diverticulosis seen in the left colon Incomplete colonoscopy till hepatic flexure due to long and redundant colon Plan: Await pathology results Patient has an appointment on 09/23/22 in the GI Clinic with? Dionne Meza NP. Stool FIT test and if positive, schedule a CT colonography. Repeat Colonoscopy interval based on path results - in 3-5 years if polyps are adenomatous and can discontinue colon cancer screening if polyps are hyperplastic. Peptic ulcer disease, colon polyps and diverticulosis handouts were given in the discharge area Prescription sent for Omeprazole 20 mg twice daily for PUD and erosive esophagitis. Repeat EGD in 3-4 months after starting Omeprazole to confirm esophagitis has healed. Received: 09/10/22 Diagnosis A.? Duodenum, ulcer, biopsy:? Active erosive duodenitis. B.? Gastric antrum, biopsy:? Gastric antral mucosa with mild reactive changes, focal lamina propria hemorrhage, and minimal chronic inactive gastritis; negative for H pylori, intestinal metaplasia and dysplasia. C.? Gastro-esophageal junction, nodule, biopsy:? Columnar mucosa with mild chronic active inflammation and features consistent with hyperplastic polyp; negative for intestinal metaplasia and dysplasia. D.? Colon, rectal polyp:? Hyperplastic polyp. TODAY'S VISIT As the polyp was hyperplastic it is recommended that we DC colonoscopy screenings. In the future if there is any question or adverse symptoms consider CT colonography. The procedure was well tolerated. The results were explained and the patient is agreeable to the follow-up interval as stated. The bowel pattern has returned to normal. Education was provided to tell any 1st degree relatives about their findings to be sure that they are screened by age 45. Educated that they will be put on a recall list when it is time for their repeat scope but should they move out of state or away from the hospital they will need to remember along with their primary to repeat the procedure in a timely fashion to avoid any adverse complications. Given the active duodenitis and history of ulcers I stressed the importance of keeping him on his omeprazole twice a day and reporting any changes in his appetite or pain. Now they say he is eating well and does not have any symptoms. Still we want to repeat the EGD in 4 months to assess for healing- this is per Dr. Dorantes. He continues on his Linzess with good control of his bowels and he also has an additional p.r.n. bowel med regimen that includes bisacodyl, milk of magnesia etc.. With this he feels the is satisfied with GI regimen for now. 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 Hepatitis C History of femur fracture Hospital discharge follow-up HTN (hypertension) Hypokalemia Intentional self-harm by jumping from a high place, sequela Medicare annual wellness visit, initial Pernicious anemia Physical exam Recurrent UTI Schizophrenia, unspecified Spinal cord injury Surgical History Hx of colonoscopy No history of previous surgery S/P total hip arthroplasty Social History Housing: Assisted Living Facility Alcohol intake: never Patient Tobacco Use Status: Never used Tobacco e-Cigarette/Vaping Use: Never Used Second Hand Smoke Exposure: No service: No Current occupational status: disabled Cognitive needs: Yes (wheelchair) Hearing needs: No Vision needs: No Review of Systems Const Denies fatigue, Denies fever(s), Denies night sweats, Denies poor appetite and Denies weight loss ENT Reports Normal hearing present, Denies dysphagia, Denies odynophagia, Denies throat swelling and Denies tongue swelling Card Reports no additional complaints Resp Reports no additional complaints GI Denies abdominal pain, Denies melena, Denies bloating, Denies hematochezia, Reports constipation, Denies GI cramping, Denies dysphagia, Denies excessive flatus, Denies early satiety, Reports heartburn, Denies diarrhea, Denies nausea, Denies odynophagia, Denies vomiting and Denies hematemesis Skin/Breast Denies pruritus, Denies lesions, Denies rash and Denies jaundice Neuro Reports Normal hearing present and Denies Abnormal speech present Endo Denies fatigue Aller/Immun Denies throat swelling and Denies tongue swelling Physical Exam Vital Signs: Last Vital Signs Pulse 61 09/23/22 11:48 BP 148/71 H 09/23/22 11:48 Const General: cooperative, no acute distress, well developed and well groomed Nutritional Appearance: average body habitus and well nourished Orientation/consciousness: oriented to person, oriented to place and oriented to time Limitations: behavioral limitations, language barrier and wheelchair HEENT Head: Yes normocephalic and Yes atraumatic Eyes General: appearance normal, both eyes and all related structures Pupils: Equal, round and reactive pupils present Neck Neck: Yes normal visual inspection and Yes no lymphadenopathy Thyroid: Thyroid normal Resp Effort & Inspection: normal respiratory effort and able to speak in complete sentences Auscultation: clear to auscultation bilaterally Cardio Rate: regular rate Rhythm: regular rhythm Heart sounds: Normal, physiologic split S2 sound present Peripheral pulses: radial pulses present and posterior tibial pulses present GI Inspection: No distended and No Abdominal panniculus present Palpation (GI): Soft to palpation, nontender, no guarding, not rigid and No hepatosplenomegaly present Percussion: Yes normal to percussion Auscultation: normal bowel sounds Rectal Exam - Male: Yes deferred Skin General skin exam: no rashes or lesions noted, turgor normal, skin not dry, no jaundice, No spider nevi and no striae Rashes: no rashes Nails: normal Neuro General: oriented to person, oriented to place and oriented to time Cranial nerves: Yes Equal, round and reactive pupils present and Yes Normal hearing present Speech: No Abnormal speech present Extrem General: Yes normal to inspection, No clubbing, No cyanosis and No edema Psych Appearance: grossly normal and well kempt Mental Status: other Speech and movement: Normal speech and movement present Affect: normal affect Attitude: cooperative Thought process: Circumstantial thought process present and not confabulating Thought content: Normal thought content present Insight: Limited insight present (Psych) Judgement: Limited judgement present (Psych) Assessment & Plan Assessment & Plan (1) Multiple duodenal ulcers: Comment: Discovered on 2022 EGD Code(s): K29.81 - Duodenitis with bleeding Plan: As the polyp was hyperplastic it is recommended that we DC colonoscopy screenings. In the future if there is any question or adverse symptoms consider CT colonography. The procedure was well tolerated. The results were explained and the patient is agreeable to the follow-up interval as stated. The bowel pattern has returned to normal. Education was provided to tell any 1st degree relatives about their findings to be sure that they are screened by age 45. Educated that they will be put on a recall list when it is time for their repeat scope but should they move out of state or away from the hospital they will need to remember along with their primary to repeat the procedure in a timely fashion to avoid any adverse complications. Given the active duodenitis and history of ulcers I stressed the importance of keeping him on his omeprazole twice a day and reporting any changes in his appetite or pain. Now they say he is eating well and does not have any symptoms. Still we want to repeat the EGD in 4 months to assess for healing- this is per Dr. Dorantes. He continues on his Linzess with good control of his bowels and he also has an additional p.r.n. bowel med regimen that includes bisacodyl, milk of magnesia etc.. With this he feels the is satisfied with GI regimen for now. (2) GERD (gastroesophageal reflux disease): Code(s): K21.9 - Gastro-esophageal reflux disease without esophagitis (3) Colon cancer screening: Code(s): Z12.11 - Encounter for screening for malignant neoplasm of colon (4) Chronic idiopathic constipation: Code(s): K59.04 - Chronic idiopathic constipation Medications: Refilled omeprazole 20 mg PO .twice a day 60 caps 3RF 30 days K29.81 - Duodenitis with b leeding Discontinued nitrofurantoin macrocrystal must administer with a meal/food 50 mg PO DAILY 90 days 90 caps 1RF N39.0 - Urinary tract infection, site not specified melatonin 10 mg PO BEDTIME 30 days PRN 30 caps 3RF sleep famotidine Discontinued Reason: Doctor's Order 20 mg PO DAILY 90 tabs 2RF K21.9 - Gastro-esophageal reflux disease without esophagitis bisacodyl 10 mg (2 x 5 mg) PO BEDTIME 56 tabs 0RF Coding Level of Care Code Est Pt Level 4 (87200) Diagnoses Multiple duodenal ulcers K29.81 GERD (gastroesophageal reflux disease) K21.9 Colon cancer screening Z12.11 Chronic idiopathic constipation K59.04
[2022-09-23 11:48] VITALS: BP 148/71; PULSE 61
== END 2022-09-23 12:23 | disposition home or self-care (01) ==
PROVIDERS: PCP Physician Assistant; Visit Provider Nurse Practitioner
DX: K29.81 Duodenitis with bleeding (principal); K21.9 Gastro-esophageal reflux disease without esophagitis; Z12.11 Encounter for screening for malignant neoplasm of colon; K59.04 Chronic idiopathic constipation
CPT/HCPCS: 99214

== ENCOUNTER → 2022-09-23 11:39 | Outpatient (BNVA) | payer MEDICARE, MEDICAID, SELFPAY | PROVIDERS: PCP Physician Assistant; Visit Provider Nurse Practitioner | DX: K59.04 Chronic idiopathic constipation (principal); K29.81 Duodenitis with bleeding; K21.9 Gastro-esophageal reflux disease without esophagitis; Z79.899 Other long term (current) drug therapy | CPT/HCPCS: 99212 ==

== ENCOUNTER 2022-10-27 11:05 | Outpatient (AMB) | payer MEDICARE, MEDICAID, SELFPAY ==
--- NOTE | 2022-10-27 11:40 | A.OFFPC_ITS ---
Vital Signs 10/27/22 11:41 Height 6 ft 1 in BMI Reason not done Patient refused/unable BP 120/70 Blood Pressure Location Lt brachial Position Sitting Respiration 16 Pulse 68 Pulse Source Pulse Oximeter Pulse Oximetry (%) 98 Oxygen Delivery Method Room Air Intake Visit Reasons: PE Intake Note: Patient is here today for a physical. Agricultural Systems Specialist Required: No Accompanied by: Program-Nirmal Allergies clozapine Allergy (Unknown, Verified 10/27/22 12:00) Unknown Medication List - Last Reconciled 10/27/22 by Michi Hsieh PA-C acetaminophen (Tylenol Extra Strength) 1,000 mg (2 x 500 mg) PO Q6H PRN 5 days amlodipine 5 mg PO DAILY 90 days artifi.tears(hypromellose)(PF) 0.3% 1 drp ophthalmic (eye) DAILY PRN 30 days bisacodyl 10 mg PO DAILY PRN [Blood pressure cuff As directed] cholecalciferol (vitamin D3) 1,250 mcg PO .QMONTH citalopram 40 mg PO DAILY clonidine HCl 0.1 mg PO DAILY PRN disposable gloves (Nitrile Exam Gloves) As directed disposable gloves (Biobrane Gloves Large) As directed docusate sodium (Colace) 100 mg PO BID 90 days facial-body wipes As directed incontinence pad, liner, disp As directed Lactobacillus rhamnosus GG (Culturelle) 1 cap PO DAILY 90 days levothyroxine 75 mcg PO DAILY linaclotide (Linzess) 290 mcg PO QAM lisinopril 5 mg PO DAILY loperamide (Imodium A-D) 2 mg PO Q4H PRN lorazepam 1 mg PO DAILY magnesium hydroxide (Milk Of Magnesia Concentrated) 30 mL PO DAILY PRN 30 days melatonin 10 mg PO BEDTIME nitrofurantoin macrocrystal 50 mg PO DAILY olanzapine (Zyprexa) 20 mg PO DAILY omeprazole 20 mg PO .twice a day 30 days trazodone 50 mg PO BEDTIME Tobacco use date assessed: 03/27/22 HPI PE HPI Details Patient is a 72-year-old male here today for annual physical..? 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 He is wheelchair-bound due to unsteadiness in his feet and history of traumatic hip fracture/spinal cord injury with hardware placement. ?? 71-year-old male with a past medical history significant for schizophrenia, wheelchair dependent and noncommunicative , history of alcohol abuse, distant history of AAA, hypothyroidism, hypertension. INTERVAL HISTORY-- .. Chronic constipation: Continues to follow GI specialist and has been using Linzess with good effect. CKD stage 3:? Noted most recent creatinine at 1.7 from 1.2.? BUN 31, advised staff to keep him well hydrated. ? Will continue to follow creatinine. .. Hypertension:? Blood pressure acceptable today in office.? He reports he denies any chest pain, shortness of breath, blurry vision.? Is now off blood pressure medication due to having low blood pressures in the past.? . Hypothyroidism:? Most recent TSH normal.? Will continue current dose of levothyroxine. .. Schizophrenia:? Has establish care with psychiatrist Dr. Escalona whom was now managing his his mental health medications --> he does report having some trouble s leeping on lichen new medication to help him sleep. . Hepatitis-C: Being followed by gastroenterology and? Is being treated for hepat itis C with epclusa .. Spinal cord injury:? Continues to be wheelchair bound secondary to his spinal cord injury.? It is unclear what has caused this though group members from the home report he had had a suicide attempt which caused him to be paralyzed.. Patient is also incontinent of urine and stool.? half-way requesting scripts for gloves, see any wipes and incontinent pads He does use Pal lift for transfers .. Colonoscopy: Followed by gastroenterology- up-to-date with colonoscopy Vaccines: Up-to-date with COVID, pneumonia considering flu vaccine, needs tetanus vaccine [facility] Medical History (Updated 10/28/22 @ 07:35 by Michi Hsieh PA-C) Elevated AFP Incontinence of feces Recurrent UTI HTN (hypertension) Physical exam Acute diarrhea Hypokalemia Decubitus ulcer of coccyx Hospital discharge follow-up Hepatitis B core antibody positive Claudia onychomycosis Hepatitis B core antibody positive ETOH abuse Pernicious anemia Intentional self-harm by jumping from a high place, sequela History of femur fracture Spinal cord injury Fracture of lumbar spine with cord lesion Medicare annual wellness visit, initial Essential (primary) hypertension Hepatitis C Schizophrenia, unspecified Surgical History Hx of colonoscopy S/P total hip arthroplasty No history of previous surgery Social History Housing: Assisted Living Facility Alcohol intake: never Patient Tobacco Use Status: Never used Tobacco e-Cigarette/Vaping Use: Never Used Second Hand Smoke Exposure: No service: No Current occupational status: disabled Cognitive needs: Yes (wheelchair) Hearing needs: No Vision needs: No Questionnaire Thrive Questionnaire Date Thrive assessed: 03/27/22 FROILAN-7 AMB Questionnaire FROILAN-7 Date FROILAN - 7 assessed: 07/02/22 Source: Developed by Drs. Dat Jimenez, Kylah Edmondson, Francis Melendez and colleagues, with an educational jethro from [employer]. Review of Systems Const Denies body aches, Denies chills, Denies excessive sweating, Denies fatigue, Denies fever(s) and Denies headache(s) Eyes Denies blurry vision ENT Denies dysphagia, Denies vertigo, Denies dizziness, Denies headache(s), Denies hearing loss and Denies tinnitus Card Denies chest pain, Denies chest pain with activity, Denies syncope, Denies irregular heart rhythm and Denies dyspnea Resp Denies chest congestion, Denies cough, Denies hemoptysis, Denies dyspnea and Denies wheezing GI Denies abdominal pain, Denies melena, Denies hematochezia, Denies coffee ground emesis, Denies dysphagia, Denies diarrhea, Denies nausea and Denies vomiting Denies difficulty urinating, Denies dysuria, Denies urinary frequency, Denies urinary hesitancy and Denies urinary urgency Musc Denies arthralgias, Denies limited range of motion, Denies muscle cramps and Denies muscle weakness Skin/Breast Denies rash and Denies skin ulcer Neuro Denies Abnormal speech present, Denies confusion, Denies vertigo, Denies dizziness, Denies syncope, Denies headache(s), Denies memory loss and Denies seizure-like activity Psych Denies anxiety, Denies confusion, Denies depression, Denies memory loss, Denies panic attacks and Denies paranoia Endo Denies excessive sweating, Denies fatigue, Denies flushing, Denies polydipsia and Denies polyuria Aller/Immun Denies wheezing Physical exam (Primary Care) Vital Signs: Last Vital Signs Pulse 68 10/27/22 11:41 Resp 16 10/27/22 11:41 BP 120/70 10/27/22 11:41 Pulse Ox 98 10/27/22 11:41 Oxygen Delivery Method Room Air 10/27/22 11:41 Tobacco/Smoking Status: Tobacco use Status Tobacco use date assessed 03/27/22 10/27/22 11:40 Patient Tobacco Use Status Never used Tobacco 10/27/22 11:40 e-Cigarette/Vaping Use Never Used 10/27/22 11:40 Thrive Assessment: Date of Thrive Assessment Date Thrive assessed 03/27/22 10/27/22 11:40 Const General: cooperative, comfortable, no acute distress, alert and awake; No confusion Orientation/consciousness: oriented to person, oriented to place, patient oriented x3 and No confusion HENMT Head: Yes normocephalic Ears: external ears normal and TM's normal bilaterally Face and sinus: No sinus tenderness Mouth: Normal oral and palatal mucosa present and tongue normal Teeth and gingiva: dentition normal and gingiva normal Throat: Yes posterior oropharynx normal, Yes tonsils normal and Yes uvula midline Eyes Conjunctivae: conjunctivae normal Sclerae: sclerae normal Pupils: Equal, round and reactive pupils present EOM: EOMs intact bilaterally Direct Ophthalmoscopy: No no photophobia Neck Neck: Yes no lymphadenopathy, No tender and Yes no JVD Thyroid: Thyroid normal Carotids: no bruits Chest Chest palpation & inspection: no tenderness Resp Effort & Inspection: normal respiratory effort, no audible wheezes, not labored and no stridor Auscultation: no crackles, no rales, no rhonchi and no wheezes Cardio Jugular venous distension: no JVD Rate: regular rate, not bradycardic and not tachycardic Rhythm: regular rhythm Bruits: no carotid bruits Peripheral pulses: Peripheral pulses 2+ throughout GI Inspection: Yes normal to inspection, No abdominal wall ecchymosis and No visible herniation Palpation (GI): Soft to palpation, nontender, no guarding, not rigid and No hepatosplenomegaly present Auscultation: normoactive bowel sounds General: Yes no CVA tenderness Back/Spine/Pelvis Back: no CVA tenderness and No back tenderness Cervical Spine: cervical ROM normal Thoracic/Lumbar Spine: thoracic and lumbar spine normal to inspection, straight leg raise negative bilaterally, No thoraco-lumbar ROM limited and No lumbar spinal tenderness Skin Lesions: no lesions Rashes: no rashes Wounds: no wounds Neuro General: oriented to person, oriented to place, patient oriented x3, CN's II-XI intact bilaterally and No confusion Cranial nerves: Yes Equal, round and reactive pupils present and Yes Normal accommodation reflex present Cognition (Neuro): normal cognition Speech: No Abnormal speech present Gait exam (Neuro): Normal gait present Motor exam (neuro): 5/5 motor strength present throughout Extrem Right upper extremity: full ROM; no cyanosis Left upper extremity: full ROM; no cyanosis Right lower extremity: no edema Left lower extremity: no edema Psych Appearance: grossly normal Mental Status: mental status grossly normal Affect: normal affect Attitude: cooperative Thought process: Normal thought process present Immunizations tetanus-diphtheria toxoids-Td 2 Lf unit-2 Lf unit/0.5 mL IM suspension Performing Provider: Michi Hsieh PA-C Performing Location: [facility] Administered by: LEANN Vance on 10/27/22 12:19 Dose Route Admin Location Dispensed Lot Number Expiration Date NDC Clerk Of Court 0.5 mL IM Right Deltoid 0.5 mL [id number] 06/15/23 [address]-7 [employer] VIS Given Date VIS Provided VIS Publication Date 10/27/22 Single Vaccine 20 Eligibility Eligibility Date Funding Source Not VFC Eligible 10/27/22 State funds Assessment and Plan Assessment & Plan (1) Annual physical exam: Code(s): Z00.00 - Encounter for general adult medical examination without abnormal findings (2) Essential (primary) hypertension: Code(s): I10 - Essential (primary) hypertension Plan: Patient's blood pressure acceptable today in office. half-way blood pressure been stable. Will continue his current dose of amlodipine with goal blood pressure to be below 140/90 (3) Schizophrenia, unspecified: Code(s): F20.9 - Schizophrenia, unspecified Qualifiers: Schizophrenia type: unspecified Qualified Code(s): F20.9 - Schizophrenia, unspecified Plan: Patient followed by Psychiatry in continues to manage his mental health medica tions. Has seemed to be stable at home no behavioral complaints from home healthcare workers. --> also reports having trouble sleeping thus will try 25 mg Benadryl before bed to help induce sleep. (4) Chronic kidney disease, stage 3: Code(s): N18.30 - Chronic kidney disease, stage 3 unspecified Qualifiers: Chronic kidney disease stage 3 subtype: unspecified whether 3a or 3b Qualified Code(s): N18.30 - Chronic kidney disease, stage 3 unspecified Plan: Patient's most recent creatinine at 1.7, stable and 1.61.9. Will continue to follow renal function. Will continue to avoid nephrotoxins. (5) Functional urinary incontinence: Code(s): R39.81 - Functional urinary incontinence Plan: Continues with daily bed pads and adult briefs as he has functional incontinence. 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 Continues to be wheelchair dependent and has unsteady gait. Continues to live in a senior living whom he received 24 hour care from. Orders: Orders Comprehensive [place]. Panel Fast 10/27/22 N18.30 - Chronic kidney disease, stage 3 unspecified Prostate Specific Antigen Scr 10/27/22 N40.0 - Benign prostatic hyperplasia without lower urinary tract symptoms, Z12.5 - Encounter for screening for malignant neoplasm of prostate Lipid Panel 10/27/22 E78.00 - Pure hypercholesterolemia, unspecified Td State Immunization 10/27/22 F51.01 - Primary insomnia, Z23 - Encounter for immunization Medications: New diphenhydramine HCl (Benadryl) 25 mg PO BEDTIME 90 days 90 caps 1RF sleep F51.01 - Primary insomnia Coding Level of Care Code Est Pt Prev Care >65y(00689) Diagnoses Annual physical exam Z00.00 Essential (primary) hypertension I10 Schizophrenia, unspecified type F20.9 Schizophrenia type: unspecified Stage 3 chronic kidney disease, unspecified whether stage 3a or 3b CKD N18.30 Chronic kidney disease stage 3 subtype: unspecified whether 3a or 3b Functional urinary incontinence R39.81 Spinal cord injury
[2022-10-27 11:41] VITALS: BP 120/70; PULSE 68; RESP 16; O2SAT 98
== END 2022-10-27 12:19 | disposition home or self-care (01) ==
PROVIDERS: PCP Physician Assistant; Visit Provider Physician Assistant
DX: Z00.00 Encounter for general adult medical examination without abnormal findings (principal); I12.9 Hypertensive chronic kidney disease with stage 1 through stage 4 chronic kidney disease, or unspecified chronic kidney disease; F20.9 Schizophrenia, unspecified; N18.30 Chronic kidney disease, stage 3 unspecified; R39.81 Functional urinary incontinence
CPT/HCPCS: 90471; 90714; 99397

== ENCOUNTER 2022-11-26 08:54 | Outpatient (AMB) | payer MEDICARE, MEDICAID, SELFPAY ==
[2022-11-26 08:56] VITALS: BP 118/76; PULSE 70; O2SAT 95
--- NOTE | 2022-11-26 08:56 | MHC.PC.OV ---
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 Allergies clozapine Allergy (Unknown, Verified 11/26/22 09:20) Unknown Medication List - Last Reconciled 11/26/22 by CARLIE Browning acetaminophen (Tylenol Extra Strength) 1,000 mg (2 x 500 mg) PO Q6H PRN 5 days amlodipine 5 mg PO DAILY 90 days artifi.tears(hypromellose)(PF) 0.3% 1 drp ophthalmic (eye) DAILY PRN 30 days bisacodyl 10 mg (2 x 5 mg) PO DAILY [Blood pressure cuff As directed] cholecalciferol (vitamin D3) 1,250 mcg PO .QMONTH citalopram 40 mg PO DAILY clonidine HCl 0.1 mg PO DAILY PRN diphenhydramine HCl (Benadryl) 25 mg PO BEDTIME 90 days disposable gloves (Nitrile Exam Gloves) As directed disposable gloves (Biobrane Gloves Large) As directed docusate sodium (Colace) 100 mg PO BID 90 days facial-body wipes As directed incontinence pad, liner, disp As directed Lactobacillus rhamnosus GG (Culturelle) 1 cap PO DAILY 90 days levothyroxine 75 mcg PO DAILY linaclotide (Linzess) 290 mcg PO QAM lisinopril 5 mg PO DAILY loperamide (Imodium A-D) 2 mg PO Q4H PRN lorazepam 1 mg PO DAILY magnesium hydroxide (Milk Of Magnesia Concentrated) 30 mL PO DAILY PRN 30 days melatonin 10 mg PO BEDTIME nitrofurantoin macrocrystal 50 mg PO DAILY olanzapine (Zyprexa) 20 mg PO DAILY omeprazole 20 mg PO .twice a day 30 days trazodone 50 mg PO BEDTIME Tobacco use date assessed: 11/26/22 Fall risk assessment: No Falls in past year Last assessed Fall Risk: 11/26/22 HPI Ongoing cough HPI Details Patient is a 72-year-old male who presents today with ongoing dry cough for the past 1 week with no improvement. Patient of WILLIAM Hsieh. 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 Medical history significant for schizophrenia, hypertension, hypothyroidism, GERD, CKD stage 3 among others. Patient did have negative 3 COVID test. Patient did not use anything for cough. Denies shortness of breath or wheezing. Coughing is dry, denies sputum production. No fever. [facility] Medical History Elevated AFP Incontinence of feces Recurrent UTI HTN (hypertension) Physical exam Acute diarrhea Hypokalemia Decubitus ulcer of coccyx Hospital discharge follow-up Hepatitis B core antibody positive Claudia onychomycosis Hepatitis B core antibody positive ETOH abuse Pernicious anemia Intentional self-harm by jumping from a high place, sequela History of femur fracture Spinal cord injury Fracture of lumbar spine with cord lesion Medicare annual wellness visit, initial Essential (primary) hypertension Hepatitis C Schizophrenia, unspecified Surgical History Hx of colonoscopy S/P total hip arthroplasty No history of previous surgery Social History Housing: Assisted Living Facility Alcohol intake: never Patient Tobacco Use Status: Never used Tobacco e-Cigarette/Vaping Use: Never Used Second Hand Smoke Exposure: No service: No Current occupational status: disabled Cognitive needs: Yes (wheelchair) Hearing needs: No Vision needs: No Questionnaire PHQ-9 Over the last 2 weeks, how often have you been bothered by any of the following problems? 1. Little interest or pleasure in doing things: not at all 2. Feeling down, depressed, or hopeless: not at all 3. Trouble falling or staying asleep, or sleeping too much: not at all 4. Feeling tired or having little energy: not at all 5. Poor appetite or overeating: not at all 6. Feeling bad about yourself - or that you are a failure or have let yourself or your family down: not at all 7. Trouble concentrating on things, such as reading the newspaper or watching television: not at all 8. Moving or speaking so slowly that other people could have noticed. Or the opposite - being so fidgety or restless that you have been moving around a lot more than usual: not at all 9. Thoughts that you would be better off or of hurting yourself in some way: not at all Total score: 0 Depression Screening Interpretation: Negative Depression Screening Done: Yes 61345 - PHQ-9 Billing: Yes Source: Developed by Drs. Dat Jimenez, Kylah Edmondson, Francis Melendez and colleagues, with an educational jethro from [employer]. Thrive Questionnaire Date Thrive assessed: 11/26/22 I am a: Patient What is your living situation today?: I have a steady place to live Within the past 12 months, did the food you bought not last and you didn't have the money to get more?: Never true Within the past 12 months, did you worry whether your food would run out before you got money to buy more?: Never true Currently or been in a relationship where the following occur: no concerns reported AUDIT C Alcohol Use Questionnaire (AUDIT-C) 1. How often do you have a drink containing alcohol?: Never 3. How often do you have six or more drinks on one occasion?: Never Total Score: 0 Score Reviewed/Action Taken: No FROILAN-7 AMB Questionnaire FROILAN-7 Date FROILAN - 7 assessed: 07/02/22 Source: Developed by Drs. Dat Jimenez, Kylah Edmondson, Francis Melendez and colleagues, with an educational jethro from [employer]. Review of Systems Const Denies body aches, Denies chills, Denies fever(s) and Denies headache(s) ENT Denies dizziness, Denies otalgia, Denies headache(s), Denies nasal discharge, Denies sinus pain and Denies sore throat Card Denies chest pain, Denies edema, Denies lightheadedness and Denies dyspnea Resp Reports cough, Denies dyspnea and Denies wheezing GI Denies abdominal pain Denies dysuria Musc Denies myalgias Skin/Breast Denies rash Neuro Denies dizziness and Denies headache(s) Aller/Immun Denies wheezing Physical exam (Primary Care) Vital Signs: Last Vital Signs Pulse 70 11/26/22 08:56 BP 118/76 11/26/22 08:56 Pulse Ox 95 11/26/22 08:56 Oxygen Delivery Method Room Air 11/26/22 08:56 Tobacco/Smoking Status: Tobacco use Status Tobacco use date assessed 11/26/22 11/26/22 08:57 Patient Tobacco Use Status Never used Tobacco 11/26/22 08:57 e-Cigarette/Vaping Use Never Used 11/26/22 08:57 PHQ-9: PHQ-9 Score PHQ-9: Total score 0 11/26/22 09:23 Depression Screening Interpretation: Negative Thrive Assessment: Date of Thrive Assessment Date Thrive assessed 11/26/22 11/26/22 08:57 Currently or been in a relationship where the following occur: no concerns reported Const General: cooperative and no acute distress Orientation/consciousness: patient oriented x3 HENMT Head: Yes normocephalic and Yes atraumatic Mouth: oropharynx normal and moist mucous membranes Throat: Yes posterior oropharynx normal Eyes General: appearance normal, both eyes and all related structures Neck Neck: Yes normal visual inspection, Yes full ROM and Yes no lymphadenopathy Resp Effort & Inspection: normal respiratory effort, able to speak in complete sentences and Actively coughing (Intermittent dry) Auscultation: clear to auscultation bilaterally, no crackles, no rales, no rhonchi and no wheezes Cardio Rate: regular rate Rhythm: regular rhythm Heart sounds: S1 normal heart sound present and S2 normal heart sound present GI Auscultation: normal bowel sounds Neuro General: patient oriented x3 Extrem General: Yes full ROM Assessment and Plan Assessment & Plan (1) Cough: Code(s): R05.9 - Cough, unspecified Plan: Lungs clear to auscultation. Patient with intermittent dry cough. Suspect viral etiology. Start benzonatate capsules t.i.d. p.r.n. for 10 days. Follow-up if no improvement in about 1-2 weeks. Increase fluid consumption. Patient agreed with the plan. Medications: New benzonatate 100 mg PO .q8hr PRN 30 caps 0RF cough R05.9 - Cough, unspecified Coding Level of Care Code Est Pt Level 3 (87910) Diagnoses Cough R05.9
== END 2022-11-26 10:44 | disposition home or self-care (01) ==
PROVIDERS: PCP Physician Assistant; Visit Provider Nurse Practitioner Family
DX: R05.9 Cough, unspecified (principal)
CPT/HCPCS: 99213

== ENCOUNTER 2022-12-30 10:59 | Outpatient (AMB) | payer MEDICARE, MEDICAID, SELFPAY ==
--- NOTE | 2022-12-30 11:01 | A.OFFVIS_ITS ---
Intake Vital Signs 12/30/22 11:10 Height 6 ft 1 in BMI Reason not done Patient refused/unable BP 123/65 Blood Pressure Location Lt brachial Position Sitting Pulse 68 Intake Visit Reasons: 6 month follow up Intake Note: Florin presents in the office as a 6 month follow up. CC: NO concerns at this time. Allergies clozapine Allergy (Unknown, Verified 11/26/22 09:20) Unknown HPI 6 month follow up HPI Details Assessment & Plan (1) Multiple duodenal ulcers: Comment: Discovered on 2022 EGD Code(s): K29.81 - Duodenitis with bleeding Plan: As the polyp was hyperplastic it is recommended that we DC colonoscopy screenings. In the future if there is any question or adverse symptoms consider CT colonography. The procedure was well tolerated. The results were explained and the patient is agreeable to the follow-up interval as stated. The bowel pattern has returned to normal. Education was provided to tell any 1st degree relatives about their findings to be sure that they are screened by age 45. Educated that they will be put on a recall list when it is time for their repeat scope but should they move out of state or away from the hospital they will need to remember along with their primary to repeat the procedure in a timely fashion to avoid any adverse complications. Given the active duodenitis and history of ulcers I stressed the importance of keeping him on his omeprazole twice a day and reporting any changes in his appetite or pain. Now they say he is eating well and does not have any symptoms. Still we want to repeat the EGD in 4 months to assess for healing- this is per Dr. Dorantes. He continues on his Linzess with good control of his bowels and he also has an additional p.r.n. bowel med regimen that includes bisacodyl, milk of magnesia etc.. With this he feels the is satisfied with GI regimen for now. (2) GERD (gastroesophageal reflux diseas e): Code(s): K21.9 - Gastro-esophageal reflux disease without esophagitis (3) Colon cancer screening: Code(s): Z12.11 - Encounter for screening for malignant neoplasm of colon (4) Chronic idiopathic constipation: Code(s): K59.04 - Chronic idiopathic constipation Medications: Refilled omeprazole 20 mg PO .twice a day 60 caps 3RF 30 days K29.81 - Duodeniti s with bleeding Discontinued nitrofurantoin mac rocrystal must administer with a meal/food 50 mg PO DAILY 90 days 90 caps 1RF N39.0 - Urinary tr act infection, sit e not specified melatonin 10 mg PO BEDTIME 30 days PRN 30 cap s 3RF sleep famotidine Disc ontinued Reason: Doctor's Order 20 mg PO DAILY 90 tabs 2RF K21.9 - Gastro-eso phageal reflux dis ease without esoph agitis bisacodyl 10 mg (2 x 5 mg) P O BEDTIME 56 tabs 0RF EGD Scheduled for January Biopsy TODAY'S VISIT He is here today with staff who says that he is having stomach pain today. The patient says that he will have left lower quadrant pain that radiates along the path of the colon upwards and caused him nausea and trouble sleeping at night. He also complains that he has pains in various areas of the chest which sounds more musculoskeletal. He continues to use esomeprazole twice a day and on the bisacodyl appears to be moving his bowels well. This could be bowel spasm so I will give him a trial of dicyclomine at bedtime to see if this is helpful. He also complains of insomnia in general which is a longstanding complaint for which he does to have some medication. The EGD is upcoming in January to assess for healing of his multiple duodenal ulcers. Return office visit after the procedure. [facility] Medical History Elevated AFP Incontinence of feces Recurrent UTI HTN (hypertension) Physical exam Acute diarrhea Hypokalemia Decubitus ulcer of coccyx Hospital discharge follow-up Hepatitis B core antibody positive Claudia onychomycosis Hepatitis B core antibody positive ETOH abuse Pernicious anemia Intentional self-harm by jumping from a high place, sequela History of femur fracture Spinal cord injury Fracture of lumbar spine with cord lesion Medicare annual wellness visit, initial Essential (primary) hypertension Hepatitis C Schizophrenia, unspecified Surgical History Hx of colonoscopy S/P total hip arthroplasty No history of previous surgery Housing: Assisted Living Facility Alcohol intake: never Patient Tobacco Use Status: Never used Tobacco e-Cigarette/Vaping Use: Never Used Second Hand Smoke Exposure: No service: No Current occupational status: disabled Cognitive needs: Yes (wheelchair) Hearing needs: No Vision needs: No Review of Systems Const Denies fatigue, Denies fever(s), Denies night sweats, Denies poor appetite and Denies weight loss ENT Reports Normal hearing present, Denies dental pain, Denies dysphagia, Denies hearing loss, Denies mouth pain, Denies odynophagia, Denies throat swelling, Denies tongue swelling and Reports other (Dentition adequate) Card Reports chest pain Resp Reports no additional complaints GI Reports abdominal pain, Denies melena, Denies bloating, Denies hematochezia, Reports constipation, Denies GI cramping, Denies dysphagia, Denies excessive flatus, Denies early satiety, Reports heartburn, Denies diarrhea, Reports nausea, Denies odynophagia, Denies vomiting and Denies hematemesis Reports urinary frequency Musc Reports arthralgias and Reports limited range of motion Skin/Breast Denies pruritus, Denies lesions, Denies rash and Denies jaundice Neuro Reports Normal hearing present, Denies Abnormal speech present, Reports lack of coordination, Reports focal weakness and Reports memory loss Psych Reports memory loss Endo Denies fatigue Aller/Immun Denies throat swelling and Denies tongue swelling Physical Exam Vital Signs: Last Vital Signs Pulse 68 12/30/22 11:10 BP 123/65 12/30/22 11:10 Const General: cooperative, no acute distress, well developed and well groomed Nutritional Appearance: well nourished Orientation/consciousness: oriented to person, oriented to place and oriented to time Limitations: No language barrier and wheelchair HEENT Head: Yes normocephalic and Yes atraumatic Eyes General: appearance normal, both eyes and all related structures Pupils: Equal, round and reactive pupils present Neck Neck: Yes normal visual inspection and Yes no lymphadenopathy Thyroid: Thyroid normal Resp Effort & Inspection: normal respiratory effort and able to speak in complete sentences Auscultation: clear to auscultation bilaterally Cardio Rate: regular rate Rhythm: regular rhythm Heart sounds: Normal, physiologic split S2 sound present Peripheral pulses: radial pulses present and posterior tibial pulses present GI Inspection: No distended and No Abdominal panniculus present Palpation (GI): Soft to palpation, nontender, no guarding, not rigid and No hepatosplenomegaly present Percussion: Yes normal to percussion Auscultation: normal bowel sounds Rectal Exam - Male: Yes deferred Skin General skin exam: no rashes or lesions noted, turgor normal, skin not dry, no jaundice, No spider nevi and no striae Rashes: no rashes Nails: normal Neuro General: oriented to person, oriented to place and oriented to time Cranial nerves: Yes Equal, round and reactive pupils present and Yes Normal hearing present Speech: No Abnormal speech present Extrem General: No clubbing, No cyanosis and No edema Psych Appearance: grossly normal and well kempt Mental Status: other Speech and movement: Slowed speech present (Psych) Affect: normal affect Attitude: cooperative Thought process: not confabulating and Impoverished thought process present Thought content: Normal thought content present Insight: Poor insight present (Psych) Judgement: Poor judgement present (Psych) Assessment & Plan Assessment & Plan (1) Multiple duodenal ulcers: Comment: Discovered on 2022 EGD Code(s): K29.81 - Duodenitis with bleeding (2) LLQ pain: Code(s): R10.32 - Left lower quadrant pain (3) Chronic idiopathic constipation: Code(s): K59.04 - Chronic idiopathic constipation (4) GERD (gastroesophageal reflux disease): Code(s): K21.9 - Gastro-esophageal reflux disease without esophagitis Plan EGD Scheduled for [facility] Biopsy TODAY'S VISIT He is here today with staff who says that he is having stomach pain today. The patient says that he will have left lower quadrant pain that radiates along the path of the colon upwards and caused him nausea and trouble sleeping at night. He also complains that he has pains in various areas of the chest which sounds more musculoskeletal. He continues to use esomeprazole twice a day and on the bisacodyl appears to be moving his bowels well. This could be bowel spasm so I will give him a trial of dicyclomine at bedtime to see if this is helpful. He also complains of insomnia in general which is a longstanding complaint for which he does to have some medication. The EGD is upcoming in January to assess for healing of his multiple duodenal ulcers. Return office visit after the procedure. Medications: New dicyclomine 20 mg PO BEDTIME 30 days 30 tabs 6RF R10.32 - Left lower quadrant pain Coding Level of Care Code Est Pt Level 3 (62102) Diagnoses Multiple duodenal ulcers K29.81 LLQ pain R10.32 Chronic idiopathic constipation K59.04 GERD (gastroesophageal reflux disease) K21.9
[2022-12-30 11:10] VITALS: BP 123/65; PULSE 68
== END 2022-12-30 11:39 | disposition home or self-care (01) ==
PROVIDERS: PCP Physician Assistant; Visit Provider Nurse Practitioner
DX: K29.81 Duodenitis with bleeding (principal); R10.32 Left lower quadrant pain; K59.04 Chronic idiopathic constipation; K21.9 Gastro-esophageal reflux disease without esophagitis
CPT/HCPCS: 99213

== ENCOUNTER → 2022-12-30 10:59 | Outpatient (BNVA) | payer MEDICARE, MEDICAID, SELFPAY | PROVIDERS: PCP Physician Assistant; Visit Provider Nurse Practitioner | DX: K29.81 Duodenitis with bleeding (principal); K21.9 Gastro-esophageal reflux disease without esophagitis; K59.04 Chronic idiopathic constipation; R10.32 Left lower quadrant pain | CPT/HCPCS: 99212 ==

== ENCOUNTER 2022-12-31 13:40 | Outpatient (AMB) | payer MEDICARE, MEDICAID, SELFPAY ==
--- NOTE | 2022-12-31 13:47 | MHC.PC.OV ---
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: No Face Boss: Present Accompanied by: Vision Rehabilitation Therapist Followed by:: Rebecca Cheney Allergies clozapine Allergy (Unknown, Verified 12/31/22 14:36) Unknown Medication List - Last Reconciled 12/31/22 by Michi Hsieh PA-C acetaminophen (Tylenol Extra Strength) 1,000 mg (2 x 500 mg) PO Q6H PRN 5 days amlodipine 5 mg PO DAILY 90 days artifi.tears(hypromellose)(PF) 0.3% 1 drp ophthalmic (eye) DAILY PRN 30 days benzonatate 100 mg PO .q8hr PRN bisacodyl 10 mg (2 x 5 mg) PO DAILY [Blood pressure cuff As directed] cholecalciferol (vitamin D3) 1,250 mcg PO .QMONTH citalopram 40 mg PO DAILY clonidine HCl 0.1 mg PO DAILY PRN dicyclomine 20 mg PO BEDTIME 30 days diphenhydramine HCl (Benadryl) 25 mg PO BEDTIME 90 days diphenhydramine HCl (Banophen) 25 mg PO TID PRN disposable gloves (Nitrile Exam Gloves) As directed disposable gloves (Biobrane Gloves Large) As directed docusate sodium (Colace) 100 mg PO BID 90 days facial-body wipes As directed incontinence pad, liner, disp As directed Lactobacillus rhamnosus GG (Culturelle) 1 cap PO DAILY 90 days levothyroxine 75 mcg PO DAILY linaclotide (Linzess) 290 mcg PO QAM lisinopril 5 mg PO DAILY loperamide (Imodium A-D) 2 mg PO Q4H PRN lorazepam 1 mg PO DAILY magnesium hydroxide (Milk Of Magnesia Concentrated) 30 mL PO DAILY PRN 30 days melatonin 10 mg PO BEDTIME nitrofurantoin macrocrystal 50 mg PO DAILY olanzapine (Zyprexa) 20 mg PO DAILY omeprazole 20 mg PO .twice a day 30 days trazodone 50 mg PO BEDTIME Tobacco use date assessed: 11/26/22 Fall risk assessment: No Falls in past year Last assessed Fall Risk: 12/31/22 Dental Screening Dental Screen Date: 12/31/22 Did you have a dental visit in the last 12 months?: Yes Did you have a dental problem in the last 6 months where you did not have access to dental care?: No Was dental information given to patient?: Patient has dentist (NO TEETH) HPI [facility]-11/26-cough/chest pain HPI Details Patient is a 72-year-old male here today for a ER follow-up visit. Patient has a past medical history significant for hyperlipidemia, chronic kidney disease, BPH, hypothyroidism, schizophrenia. Was seen at the ER nearly a month ago for a cough and chest pain. No documents of this available today. Seems to have been more of abdominal pain concern. Has follow-up with his GI and was given dicyclomine which has not started as of yet. Also reports he is been having trouble sleeping. 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 [facility] Medical History Elevated AFP Incontinence of feces Recurrent UTI HTN (hypertension) Physical exam Acute diarrhea Hypokalemia Decubitus ulcer of coccyx Hospital discharge follow-up Hepatitis B core antibody positive Claudia onychomycosis Hepatitis B core antibody positive ETOH abuse Pernicious anemia Intentional self-harm by jumping from a high place, sequela History of femur fracture Spinal cord injury Fracture of lumbar spine with cord lesion Medicare annual wellness visit, initial Essential (primary) hypertension Hepatitis C Schizophrenia, unspecified Surgical History Hx of colonoscopy S/P total hip arthroplasty No history of previous surgery Housing: Assisted Living Facility Alcohol intake: never Patient Tobacco Use Status: Never used Tobacco e-Cigarette/Vaping Use: Never Used Second Hand Smoke Exposure: No service: No Current occupational status: disabled Cognitive needs: Yes (wheelchair) Hearing needs: No Vision needs: No Questionnaire Thrive Questionnaire Date Thrive assessed: 11/26/22 FROILAN-7 AMB Questionnaire FROILAN-7 Date FROILAN - 7 assessed: 07/02/22 Source: Developed by Drs. Dat Jimenez, Kylah Edmondson, Francis Melendez and colleagues, with an educational jethro from [employer]. Review of Systems Const Denies headache(s) Eyes Denies loss of vision ENT Denies vertigo, Denies dizziness, Denies headache(s) and Denies sore throat Card Denies chest pain, Denies leg edema and Denies lightheadedness Resp Denies cough, Denies hemoptysis and Denies wheezing GI Denies abdominal pain, Denies melena, Denies constipation, Denies diarrhea and Denies vomiting Denies dysuria, Denies urinary frequency and Denies urinary urgency Musc Denies arthralgias, Denies joint swelling, Denies numbness and Denies tingling Neuro Denies Abnormal speech present, Denies behavioral changes, Denies vertigo, Denies dizziness, Denies headache(s), Denies loss of vision, Denies memory loss, Denies numbness and Denies tingling Psych Denies anxiety, Denies behavioral changes, Denies depression, Denies memory loss and Denies panic attacks Zhen/Lymph Denies easy bleeding and Denies easy bruising Aller/Immun Denies wheezing Physical exam (Primary Care) Vital Signs: Oxygen Delivery Method Room Air 12/31/22 13:49 Tobacco/Smoking Status: Tobacco use Status Tobacco use date assessed 11/26/22 12/31/22 13:49 Patient Tobacco Use Status Never used Tobacco 12/31/22 13:49 e-Cigarette/Vaping Use Never Used 12/31/22 13:49 Thrive Assessment: Date of Thrive Assessment Date Thrive assessed 11/26/22 12/31/22 13:49 Const General: healthy appearing, no acute distress, alert and awake Nutritional Appearance: well nourished Orientation/consciousness: oriented to person, oriented to place and oriented to time HENMT Ears: TM's normal bilaterally General nose exam: Normal nasal mucous membranes and turbinates present Eyes Conjunctivae: conjunctivae normal Sclerae: sclerae normal Pupils: Equal, round and reactive pupils present Neck Neck: Yes no lymphadenopathy and Yes no JVD Thyroid: Thyroid normal Carotids: no bruits Resp Effort & Inspection: normal respiratory effort and not tachypneic Auscultation: no crackles, no rales, no rhonchi and no wheezes Cardio Rate: regular rate Rhythm: regular rhythm Heart sounds: no murmurs and normal S1 and S2 GI Other: PATIENT REPORTS SUBJECTIVE PAIN TO PALPATION OVERTIRED ABDOMEN Palpation (GI): Soft to palpation, nontender, no hepatomegaly and no splenomegaly Auscultation: normal bowel sounds Skin General skin exam: no rashes or lesions noted and dry skin Neuro General: oriented to person, oriented to place and oriented to time Cranial nerves: Yes Equal, round and reactive pupils present Speech: No Abnormal speech present Gait exam (Neuro): Normal gait present Motor exam (neuro): no tremor noted Extrem Right upper extremity: full ROM Left upper extremity: full ROM Right lower extremity: full ROM; no edema Left lower extremity: full ROM; no edema Psych Mental Status: mental status grossly normal Speech and movement: Normal speech and movement present Affect: normal affect Attitude: cooperative Thought process: Normal thought process present Assessment and Plan Assessment & Plan (1) Generalized abdominal pain: Code(s): R10.84 - Generalized abdominal pain Plan: Unclear etiology to patient's abdominal pain. Has followed up with his GI specialist whom started dicyclomine which he has not started at this time. Will get ultrasound the evaluate his gallbladder and liver. (2) Insomnia: Code(s): G47.00 - Insomnia, unspecified Qualifiers: Insomnia type: primary Qualified Code(s): F51.01 - Primary insomnia Plan: Reports he is still has trouble sleeping. He does admit to sleeping her in the daytime and having trouble sleeping at night. He does speak to with his psychiatrist about this and increasing his dose of melatonin and trazodone. His circadian rhythm seems off and advised to stay awake during the day so that he can sleep at night. Orders: Orders US abdomen complete Today R10.84 - Generalized abdominal pain Coding Level of Care Code Est Pt Level 3 (96194) Diagnoses Generalized abdominal pain R10.84 Primary insomnia F51.01 Insomnia type: primary
[2022-12-31 13:49] VITALS: BP 102/58; PULSE 75; O2SAT 98
== END 2022-12-31 14:55 | disposition home or self-care (01) ==
PROVIDERS: PCP Physician Assistant; Visit Provider Physician Assistant
DX: R10.84 Generalized abdominal pain (principal); F51.01 Primary insomnia
CPT/HCPCS: 99213

== ENCOUNTER 2023-01-28 11:56 | Outpatient (AMB) | payer MEDICARE, MEDICAID, SELFPAY ==
[2023-01-28 12:41] VITALS: BP 118/72; PULSE 74; RESP 17; O2SAT 96
--- NOTE | 2023-01-28 12:41 | MHC.PC.OV ---
Vital Signs 01/28/23 12:41 Height 6 ft 1 in BMI Reason not done Patient refused/unable BP 118/72 Blood Pressure Location Rt brachial Position Sitting Respiration 17 Pulse 74 Pulse Source Pulse Oximeter Pulse Oximetry (%) 96 Oxygen Delivery Method Room Air Intake Visit Reasons: 3 month f/u Press Secretary Required: No Accompanied by: [facility]iel [facility] Allergies clozapine Allergy (Unknown, Verified 01/28/23 12:49) Unknown Medication List - Last Reconciled 01/28/23 by Michi Hsieh PA-C acetaminophen (Tylenol Extra Strength) 1,000 mg (2 x 500 mg) PO Q6H PRN 5 days amlodipine 5 mg PO DAILY 90 days artifi.tears(hypromellose)(PF) 0.3% 1 drp ophthalmic (eye) DAILY PRN 30 days benzonatate 100 mg PO .q8hr PRN bisacodyl 10 mg (2 x 5 mg) PO DAILY [Blood pressure cuff As directed] cholecalciferol (vitamin D3) 1,250 mcg PO .QMONTH citalopram 40 mg PO DAILY clonidine HCl 0.1 mg PO DAILY PRN dicyclomine 20 mg PO BEDTIME 30 days diphenhydramine HCl (Benadryl) 25 mg PO BEDTIME 90 days diphenhydramine HCl (Banophen) 25 mg PO TID PRN disposable gloves (Nitrile Exam Gloves) As directed disposable gloves (Biobrane Gloves Large) As directed docusate sodium (Colace) 100 mg PO BID 90 days facial-body wipes As directed incontinence pad, liner, disp As directed Lactobacillus rhamnosus GG (Culturelle) 1 cap PO DAILY 90 days levothyroxine 75 mcg PO DAILY linaclotide (Linzess) 290 mcg PO QAM lisinopril 5 mg PO DAILY loperamide (Imodium A-D) 2 mg PO Q4H PRN lorazepam 1 mg PO DAILY magnesium hydroxide (Milk Of Magnesia Concentrated) 30 mL PO DAILY PRN 30 days melatonin 10 mg PO BEDTIME nitrofurantoin macrocrystal 50 mg PO DAILY olanzapine (Zyprexa) 20 mg PO DAILY omeprazole 20 mg PO .twice a day 30 days trazodone 100 mg PO BEDTIME Tobacco use date assessed: 11/26/22 Fall risk assessment: No Falls in past year Last assessed Fall Risk: 01/28/23 Dental Screening Dental Screen Date: 01/28/23 Did you have a dental visit in the last 12 months?: Yes Did you have a dental problem in the last 6 months where you did not have access to dental care?: No Was dental information given to patient?: Patient has dentist HPI 3 month f/u HPI Details Patient is a 72-year-old male here today for a three-month follow-up visit. .? 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 He is wheelchair-bound due to unsteadiness in his feet and history of traumatic hip fracture/spinal cord injury with hardware placement. ?? 71-year-old male with a past medical history significant for schizophrenia, wheelchair dependent , history of alcohol abuse, distant history of AAA, hypothyroidism, hypertension. INTERVAL HISTORY-- .. Chronic constipation: Continues to follow GI specialist and has been using Linzess with good effect. CKD stage 3:? Noted most recent creatinine at 1.7 from 1.2.? BUN 31, advised staff to keep him well hydrated. ? Will continue to follow creatinine. .. Hypertension:? Blood pressure acceptable today in office.? He reports he denies any chest pain, shortness of breath, blurry vision.? Is now off blood pressure medication due to having low blood pressures in the past.? . Hypothyroidism:? Most recent TSH normal.? Will continue current dose of levothyroxine. Advised to get labs done to evaluate TSH .. Schizophrenia:? Has establish care with psychiatrist Dr. Escalona whom was now managing his his mental health medications --> he does report having some trouble sleeping on lichen new medication to help him sleep. . Hepatitis-C: Being followed by gastroenterology and is hepatitis C has been treated .. Spinal cord injury:? Continues to be wheelchair bound secondary to his spinal cord injury.? It is unclear what has caused this though group members from the home report he had had a suicide attempt which caused him to be paralyzed.. Patient is also incontinent of urine and stool.? senior living requesting scripts for gloves, see any wipes and incontinent pads He does use Pal lift for transfers ADVISED TO GET LAB WORK DONE FASTING [facility] Medical History Aortic aneurysm, abdominal Elevated AFP Incontinence of feces Recurrent UTI HTN (hypertension) Physical exam Acute diarrhea Hypokalemia Decubitus ulcer of coccyx Hospital discharge follow-up Hepatitis B core antibody positive Claudia onychomycosis Hepatitis B core antibody positive ETOH abuse Pernicious anemia Intentional self-harm by jumping from a high place, sequela History of femur fracture Spinal cord injury Fracture of lumbar spine with cord lesion Medicare annual wellness visit, initial Essential (primary) hypertension Hepatitis C Schizophrenia, unspecified Surgical History Hx of colonoscopy S/P total hip arthroplasty Social History Housing: Assisted Living Facility Alcohol intake: never Patient Tobacco Use Status: Never used Tobacco e-Cigarette/Vaping Use: Never Used Second Hand Smoke Exposure: No service: No Current occupational status: disabled Cognitive needs: Yes (wheelchair) Hearing needs: No Vision needs: No Questionnaire Thrive Questionnaire Date Thrive assessed: 11/26/22 FROILAN-7 AMB Questionnaire FROILAN-7 Date FROILAN - 7 assessed: 07/02/22 Source: Developed by Drs. aDt Jimenez, Kylah Edmondson, Francis Melendez and colleagues, with an educational jethro from [employer]. Review of Systems Const Denies headache(s) Eyes Denies loss of vision ENT Denies vertigo, Denies dizziness, Denies headache(s) and Denies sore throat Card Denies chest pain, Denies leg edema and Denies lightheadedness Resp Denies cough, Denies hemoptysis and Denies wheezing GI Denies abdominal pain, Denies melena, Denies constipation, Denies diarrhea and Denies vomiting Denies dysuria, Denies urinary frequency and Denies urinary urgency Musc Denies arthralgias, Denies joint swelling, Denies numbness and Denies tingling Neuro Denies Abnormal speech present, Denies behavioral changes, Denies vertigo, Denies dizziness, Denies headache(s), Denies loss of vision, Denies memory loss, Denies numbness and Denies tingling Psych Denies anxiety, Denies behavioral changes, Denies depression, Denies memory loss and Denies panic attacks Zehn/Lymph Denies easy bleeding and Denies easy bruising Aller/Immun Denies wheezing Physical exam (Primary Care) Vital Signs: Last Vital Signs Pulse 74 01/28/23 12:41 Resp 17 01/28/23 12:41 BP 118/72 01/28/23 12:41 Pulse Ox 96 01/28/23 12:41 Oxygen Delivery Method Room Air 01/28/23 12:41 Tobacco/Smoking Status: Tobacco use Status Tobacco use date assessed 11/26/22 01/28/23 12:46 Patient Tobacco Use Status Never used Tobacco 01/28/23 12:46 e-Cigarette/Vaping Use Never Used 01/28/23 12:46 Thrive Assessment: Date of Thrive Assessment Date Thrive assessed 11/26/22 01/28/23 12:46 Const Other: Sitting comfortably in wheelchair General: healthy appearing, no acute distress, alert and awake Nutritional Appearance: well nourished Orientation/consciousness: oriented to person, oriented to place and oriented to time HENMT Ears: TM's normal bilaterally General nose exam: Normal nasal mucous membranes and turbinates present Eyes Conjunctivae: conjunctivae normal Sclerae: sclerae normal Pupils: Equal, round and reactive pupils present Neck Neck: Yes no lymphadenopathy and Yes no JVD Thyroid: Thyroid normal Carotids: no bruits Resp Effort & Inspection: normal respiratory effort and not tachypneic Auscultation: no crackles, no rales, no rhonchi and no wheezes Cardio Rate: regular rate Rhythm: regular rhythm Heart sounds: no murmurs and normal S1 and S2 GI Palpation (GI): Soft to palpation, nontender, no hepatomegaly and no splenomegaly Auscultation: normal bowel sounds Skin General skin exam: no rashes or lesions noted and dry skin Neuro General: oriented to person, oriented to place and oriented to time Cranial nerves: Yes Equal, round and reactive pupils present Speech: No Abnormal speech present Gait exam (Neuro): Normal gait present Motor exam (neuro): no tremor noted Extrem Right upper extremity: full ROM Left upper extremity: full ROM Right lower extremity: full ROM; no edema Left lower extremity: full ROM; no edema Psych Mental Status: mental status grossly normal Speech and movement: Normal speech and movement present Affect: normal affect Attitude: cooperative Thought process: Normal thought process present Assessment and Plan Assessment & Plan (1) Essential (primary) hypertension: Code(s): I10 - Essential (primary) hypertension Plan: Patient's blood pressure acceptable today in office. senior living blood pressure been stable. Will continue his current dose of amlodipine with goal blood pressure to be below 140/90 (2) Schizophrenia, unspecified: Code(s): F20.9 - Schizophrenia, unspecified Qualifiers: Schizophrenia type: unspecified Qualified Code(s): F20.9 - Schizophrenia, unspecified Plan: Patient followed by Psychiatry in continues to manage his mental health medications. Has seemed to be stable at home no behavioral complaints from home healthcare workers. --> also reports having trouble sleeping to which he has also brought up with psychiatrist. 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 Advised on no naps during the day and trying to keep him occupied during the day so that he does not sleep. (3) Chronic kidney disease, stage 3: Code(s): N18.30 - Chronic kidney disease, stage 3 unspecified Qualifiers: Chronic kidney disease stage 3 subtype: unspecified whether 3a or 3b Qualified Code(s): N18.30 - Chronic kidney disease, stage 3 unspecified Plan: Patient's most recent creatinine at 1.7, stable and 1.61.9. Will continue to follow renal function. Will continue to avoid nephrotoxins. (4) Functional urinary incontinence: Code(s): R39.81 - Functional urinary incontinence Plan: Continues with daily bed pads and adult briefs as he has functional incontinence. (5) Spinal cord injury: Plan: Has spinal cord injury secondary to suicide attempt. Continues to be wheelchair dependent and has unsteady gait. Continues to live in a half-way whom he received 24 hour care from. Orders: Orders TSH reflex Free T4 Today E03.9 - Hypothyroidism, unspecified Coding Level of Care Code Est Pt Level 4 (07139) Diagnoses Essential (primary) hypertension I10 Schizophrenia, unspecified type F20.9 Schizophrenia type: unspecified Stage 3 chronic kidney disease, unspecified whether stage 3a or 3b CKD N18.30 Chronic kidney disease stage 3 subtype: unspecified whether 3a or 3b Functional urinary incontinence R39.81 Spinal cord injury
== END 2023-01-28 13:06 | disposition home or self-care (01) ==
PROVIDERS: PCP Physician Assistant; Visit Provider Physician Assistant
DX: Z23 Encounter for immunization (principal); I12.9 Hypertensive chronic kidney disease with stage 1 through stage 4 chronic kidney disease, or unspecified chronic kidney disease; N18.30 Chronic kidney disease, stage 3 unspecified; F20.9 Schizophrenia, unspecified; R39.81 Functional urinary incontinence
CPT/HCPCS: 90471; 90686; 99214

== ENCOUNTER 2023-05-04 11:03 | Outpatient (AMB) | payer MEDICARE, MEDICAID, SELFPAY ==
--- NOTE | 2023-05-04 11:05 | A.OFFPC_ITS ---
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 Accompanied by: Parag with Service Net Allergies clozapine Allergy (Unknown, Verified 05/04/23 11:22) Unknown Medication List - Last Reconciled 05/04/23 by Michi Hsieh PA-C acetaminophen (Tylenol Extra Strength) 1,000 mg (2 x 500 mg) PO Q6H PRN 5 days amlodipine 5 mg PO DAILY 90 days artifi.tears(hypromellose)(PF) 0.3% 1 drp ophthalmic (eye) DAILY PRN 30 days benzonatate 100 mg PO .q8hr PRN bisacodyl 10 mg (2 x 5 mg) PO DAILY [Blood pressure cuff As directed] cholecalciferol (vitamin D3) 1,250 mcg PO .QMONTH citalopram 40 mg PO DAILY clonidine HCl 0.1 mg PO DAILY PRN dextromethorphan-guaifenesin 5-100 mg/5 mL (Robitussin Cough-Chest Congestion DM) 10 mL PO Q6H PRN 30 days dicyclomine 20 mg PO BEDTIME 30 days diphenhydramine HCl (Benadryl) 25 mg PO BEDTIME 90 days diphenhydramine HCl (Banophen) 25 mg PO TID PRN disposable gloves (Nitrile Exam Gloves) As directed disposable gloves (Biobrane Gloves Large) As directed docusate sodium (Colace) 100 mg PO BID 90 days facial-body wipes As directed incontinence pad, liner, disp As directed Lactobacillus rhamnosus GG (Culturelle) 1 cap PO DAILY 90 days levothyroxine 75 mcg PO DAILY linaclotide (Linzess) 290 mcg PO QAM lisinopril 5 mg PO DAILY loperamide (Imodium A-D) 2 mg PO Q4H PRN lorazepam 1 mg PO DAILY magnesium hydroxide (Milk Of Magnesia Concentrated) 30 mL PO DAILY PRN 30 days melatonin 10 mg PO BEDTIME nitrofurantoin macrocrystal 50 mg PO DAILY nitrofurantoin monohyd/m-cryst 100 mg 100 mg PO DAILY 30 days olanzapine (Zyprexa) 20 mg PO DAILY omeprazole 20 mg PO .twice a day 30 days trazodone 100 mg PO BEDTIME Tobacco use date assessed: 05/04/23 Fall risk assessment: No Falls in past year Last assessed Fall Risk: 05/04/23 Dental Screening Dental Screen Date: 05/04/23 Did you have a dental visit in the last 12 months?: No Did you have a dental problem in the last 6 months where you did not have access to dental care?: No Was dental information given to patient?: Patient has dentist HPI f/u HTN/ hypothyroid HPI Details Patient is a 72-year-old male here today for a three-month follow-up visit. .? He [facility] today with a [facility].. He is wheelchair-bound due to unsteadiness in his feet and history of traumatic hip fracture/spinal cord injury with hardware placement. ?? 71-year-old male with a past medical history significant for schizophrenia, wheelchair dependent , history of alcohol abuse, distant history of AAA, hypothyroidism, hypertension. INTERVAL HISTORY-- .. Chronic constipation: Continues to follow GI specialist and has been using Linzess with good effect. CKD stage 3:? Noted most recent creatinine at 1.7 from 1.2.? BUN 31, advised staff to keep him well hydrated. ? Will continue to follow creatinine. .. Hypertension:? Blood pressure acceptable today in office.? He reports he denies any chest pain, shortness of breath, blurry vision.? Is now off blood pressure medication due to having low blood pressures in the past.? . Hypothyroidism:? Most recent TSH normal.? Will continue current dose of levothyroxine. Advised to get labs done to evaluate TSH .. Schizophrenia:? Has establish care with psychiatrist Dr. Escalona whom was now managing his his mental health medications --> he does report having some trouble s leeping on lichen new medication to help him sleep. . Hepatitis-C: Being followed by gastroenterology and is hepatitis C has been treated .. Spinal cord injury:? Continues to be wheelchair bound secondary to his spinal cord injury.? It is unclear what has caused this though group members from the home report he had had a suicide attempt which caused him to be paralyzed.. Patient is also incontinent of urine and stool.? shelter requesting scripts for gloves, see any wipes and incontinent pads He does use Pal lift for transfers Laboratory Tests 03/27/22 11:19 Hgb 14.2 Sodium 146 H Potassium 5.2 H Creatinine 1.71 H Cholesterol 176 PFSH Medical History (Updated 05/04/23 @ 16:32 by Michi Hsieh PA-C) Aortic aneurysm, abdominal Elevated AFP Incontinence of feces Recurrent UTI HTN (hypertension) Physical exam Acute diarrhea Hypokalemia Decubitus ulcer of coccyx Hospital discharge follow-up Hepatitis B core antibody positive Claudia onychomycosis Hepatitis B core antibody positive ETOH abuse Pernicious anemia Intentional self-harm by jumping from a high place, sequela History of femur fracture Spinal cord injury Fracture of lumbar spine with cord lesion Medicare annual wellness visit, initial Essential (primary) hypertension Hepatitis C Schizophrenia, unspecified Surgical History Hx of colonoscopy S/P total hip arthroplasty Social History Housing: Assisted Living Facility Alcohol intake: never Patient Tobacco Use Status: Never used Tobacco e-Cigarette/Vaping Use: Never Used Second Hand Smoke Exposure: No service: No Current occupational status: disabled Cognitive needs: Yes (wheelchair) Hearing needs: No Vision needs: No Questionnaire PHQ-9 Over the last 2 weeks, how often have you been bothered by any of the following problems? 1. Little interest or pleasure in doing things: not at all 2. Feeling down, depressed, or hopeless: not at all 3. Trouble falling or staying asleep, or sleeping too much: not at all 4. Feeling tired or having little energy: not at all 5. Poor appetite or overeating: not at all 6. Feeling bad about yourself - or that you are a failure or have let yourself or your family down: not at all 7. Trouble concentrating on things, such as reading the newspaper or watching television: not at all 8. Moving or speaking so slowly that other people could have noticed. Or the opposite - being so fidgety or restless that you have been moving around a lot more than usual: not at all 9. Thoughts that you would be better off or of hurting yourself in some way: not at all Total score: 0 Depression Screening Interpretation: Negative Depression Screening Done: Yes 73189 - PHQ-9 Billing: Yes Source: Developed by Drs. Dat Jimenez, Kylah Edmondson, Francis Melendez and colleagues, with an educational jethro from [employer]. Thrive Questionnaire Date Thrive assessed: 05/04/23 I am a: Patient What is your living situation today?: I have a steady place to live Within the past 12 months, did the food you bought not last and you didn't have the money to get more?: Never true Within the past 12 months, did you worry whether your food would run out before you got money to buy more?: Never true Do you have trouble paying for medicines?: No Do you have trouble getting transportation to medical appointments?: No Do you have trouble paying your heating and electricity bill?: No Do you have trouble taking care of your child, family member or friend?: No Do you have trouble with day-to-day activities such as bathing, preparing meals, shopping, managing finances, etc.?: No Are you currently unemployed and looking for a job?: No Are you interested in more education?: No Please select the resources that you would like help with: None Currently or been in a relationship where the following occur: no concerns reported THRIVE Score: 0 AUDIT C Alcohol Use Questionnaire (AUDIT-C) 1. How often do you have a drink containing alcohol?: Never 3. How often do you have six or more drinks on one occasion?: Never Total Score: 0 FROILAN-7 AMB Questionnaire FROILAN-7 Date FROILAN - 7 assessed: 05/04/23 Feeling nervous, anxious, or on edge: 0 = Not at all Not being able to stop or control worryin = Not at all Worrying too much about different things: 0 = Not at all Trouble relaxin = Not at all Being so restless that it is hard to sit still: 0 = Not at all Becoming easily annoyed or irritable: 0 = Not at all Feeling afraid as if something awful might happen: 0 = Not at all Total FROILAN-7 score (0-4 normal; 5-9 mild; 10-14 moderate; 15-21 severe): 0 Source: Developed by Kylah Banegas Kurt Kroenke and colleagues, with an educational jethro from [employer]. FROILAN-7 Assessment Billing FROILAN-7 Assessment Tool: FROILAN-7 Assessment 72763 Review of Systems Const Denies headache(s) Eyes Denies loss of vision ENT Denies vertigo, Denies dizziness, Denies headache(s) and Denies sore throat Card Denies chest pain, Denies leg edema and Denies lightheadedness Resp Denies cough, Denies hemoptysis and Denies wheezing GI Denies abdominal pain, Denies melena, Denies constipation, Denies diarrhea and Denies vomiting Denies dysuria, Denies urinary frequency and Denies urinary urgency Musc Denies arthralgias, Denies joint swelling, Denies numbness and Denies tingling Neuro Denies Abnormal speech present, Denies behavioral changes, Denies vertigo, Denies dizziness, Denies headache(s), Denies loss of vision, Denies memory loss, Denies numbness and Denies tingling Psych Denies anxiety, Denies behavioral changes, Denies depression, Denies memory loss and Denies panic attacks Zhen/Lymph Denies easy bleeding and Denies easy bruising Aller/Immun Denies wheezing Physical exam (Primary Care) Vital Signs: Last Vital Signs Pulse 84 05/04/23 11:12 Resp 15 05/04/23 11:12 BP 108/74 05/04/23 11:12 Pulse Ox 98 05/04/23 11:12 Oxygen Delivery Method Room Air 05/04/23 11:12 Tobacco/Smoking Status: Tobacco use Status Tobacco use date assessed 05/04/23 05/04/23 11:21 Patient Tobacco Use Status Never used Tobacco 05/04/23 11:06 e-Cigarette/Vaping Use Never Used 05/04/23 11:06 PHQ-9: PHQ-9 Score PHQ-9: Total score 0 05/04/23 11:24 Depression Screening Interpretation: Negative Thrive Assessment: Date of Thrive Assessment Date Thrive assessed 05/04/23 05/04/23 11:16 Currently or been in a relationship where the following occur: no concerns reported Const General: healthy appearing, no acute distress, alert and awake Nutritional Appearance: well nourished Orientation/consciousness: oriented to person, oriented to place and oriented to time HENMT Ears: TM's normal bilaterally General nose exam: Normal nasal mucous membranes and turbinates present Eyes Conjunctivae: conjunctivae normal Sclerae: sclerae normal Pupils: Equal, round and reactive pupils present Neck Neck: Yes no lymphadenopathy and Yes no JVD Thyroid: Thyroid normal Carotids: no bruits Resp Effort & Inspection: normal respiratory effort and not tachypneic Auscultation: no crackles, no rales, no rhonchi and no wheezes Cardio Rate: regular rate Rhythm: regular rhythm Heart sounds: no murmurs and normal S1 and S2 GI Palpation (GI): Soft to palpation, nontender, no hepatomegaly and no splenom egaly Auscultation: normal bowel sounds Skin General skin exam: no rashes or lesions noted and dry skin Neuro General: oriented to person, oriented to place and oriented to time Cranial nerves: Yes Equal, round and reactive pupils present Speech: No Abnormal speech present Gait exam (Neuro): Normal gait present Motor exam (neuro): no tremor noted Extrem Right upper extremity: full ROM Left upper extremity: full ROM Right lower extremity: full ROM; no edema Left lower extremity: full ROM; no edema Psych Mental Status: mental status grossly normal Speech and movement: Normal speech and movement present Affect: normal affect Attitude: cooperative Thought process: Normal thought process present Assessment and Plan Assessment & Plan (1) Essential (primary) hypertension: Code(s): I10 - Essential (primary) hypertension Plan: Patient's blood pressure acceptable today in office. shelter blood pressure been stable. Will continue his current dose of amlodipine with goal blood pressure to be below 140/90 (2) Schizophrenia, unspecified: Code(s): F20.9 - Schizophrenia, unspecified Qualifiers: Schizophrenia type: unspecified Qualified Code(s): F20.9 - Schizophrenia, unspecified Plan: Patient followed by Psychiatry in continues to manage his mental health medications. Has seemed to be stable at home no behavioral complaints from home healthcare workers. No further complaints about sleep. (3) Chronic kidney disease, stage 3: Code(s): N18.30 - Chronic kidney disease, stage 3 unspecified Qualifiers: Chronic kidney disease stage 3 subtype: unspecified whether 3a or 3b Qualified Code(s): N18.30 - Chronic kidney disease, stage 3 unspecified Plan: Patient's most recent creatinine at 1.7, stable and 1.61.9. Will continue to follow renal function. Will continue to avoid nephrotoxins. (4) Spinal cord injury: Plan: Has spinal cord injury secondary to suicide attempt. Continues to be wheelchair dependent and has unsteady gait. Continues to [facility] in a pen[facility]iary whom he received 24 hour care from. (5) Aortic aneurysm, abdominal: Comment: 4.8 CM THE ULTRASOUND 02/2019 Code(s): I71.4 - Abdominal aortic aneurysm, without rupture Qualifiers: Abdominal aorta location: infrarenal aorta Presence of rupture: without rupture Qualified Code(s): I71.43 - Infrarenal abdominal aortic aneurysm, without rupture Plan: Has an aortic aneurysm, last evaluated in 2019 at 4.8 cm. Will recheck with ultrasound as surveillance to see if there is any enlarging. Orders: Orders US abdominal aortic aneurysm Today I71.43 - Infrarenal abdominal aortic aneurysm, without rupture Coding Level of Care Code Est Pt Level 4 (26721) Diagnoses Essential (primary) hypertension I10 Schizophrenia, unspecified type F20.9 Schizophrenia type: unspecified Stage 3 chronic kidney disease, unspecified whether stage 3a or 3b CKD N18.30 Chronic kidney disease stage 3 subtype: unspecified whether 3a or 3b Spinal cord injury Infrarenal abdominal aortic aneurysm (AAA) without rupture I71.43 Abdominal aorta location: infrarenal aorta Presence of rupture: without rupture Additional Codes FROILAN-7 Assessment Billing - FROILAN-7 Assessment Tool: FROILAN-7 Assessment [id number] ([id number])
[2023-05-04 11:12] VITALS: BP 108/74; PULSE 84; RESP 15; O2SAT 98
== END 2023-05-04 12:36 | disposition home or self-care (01) ==
PROVIDERS: PCP Physician Assistant; Visit Provider Physician Assistant
DX: I12.9 Hypertensive chronic kidney disease with stage 1 through stage 4 chronic kidney disease, or unspecified chronic kidney disease (principal); F20.9 Schizophrenia, unspecified; N18.30 Chronic kidney disease, stage 3 unspecified; I71.43 Infrarenal abdominal aortic aneurysm, without rupture
CPT/HCPCS: 99214

== ENCOUNTER 2023-05-29 08:14 | Outpatient (REF) | payer MEDICARE, MEDICAID, SELFPAY ==
--- NOTE | ~2023-05-29 | US_ITS ---
EXAMINATION: US RETROPERITONEAL LIMITED (AORTA) CLINICAL INFORMATION: Abdominal aortic aneurysm. COMPARISON: None available. TECHNIQUE: Mike-scale, color Doppler and spectral Doppler evaluation of the abdominal aorta. FINDINGS: Limited evaluation of the proximal aorta due to overlying bowel gas shadowing. Evaluation is limited in segments in the mid and distal portions due to bowel gas shadowing. There is fusiform dilation of the distal abdominal aorta. The measurements of the aorta in maximum AP and transverse dimensions respectively are as follows: Proximal: Not visualized Mid: 2.1 x 1.7 cm. Distal: 4.2 x 3.2 cm. PSV: 30.8 cm/s. Iliac arteries are not visualized due to bowel gas shadowing. US/US abdominal aortic aneurysm IMPRESSION: Limited evaluation due to extensive bowel gas shadowing. There is fusiform dilation of the distal abdominal aorta with maximum diameter 4.2 cm. Based on published guidelines in J Am Morales Radiol 2013; 10(10):789-794 and J Vasc Surg. 2018; 67:2-77, the recommendation for an abdominal aortic aneurysm with diameter 4.0-4.4 cm is vascular consultation and subsequent follow-up every 12 months. .
== END 2023-05-29 08:15 | disposition home or self-care (01) ==
LOC: HO.US 08:14
PROVIDERS: PCP Physician Assistant; Visit Provider Physician Assistant
DX: I71.43 Infrarenal abdominal aortic aneurysm, without rupture (principal)
CPT/HCPCS: 76706

== ENCOUNTER 2023-09-07 06:58 | Day surgery (SDC) | payer MEDICARE, MEDICAID, SELFPAY ==
--- NOTE | 2023-09-04 09:32 | HO.ANESPROP2 ---
HPI - Anesthesia Eval Consult details Narrative: 73yo M for Upper Endoscopy [facility] Active Problems Active Problems: All Active Problems Generalized abdominal pain (Acute) LLQ pain (Acute) Cough (Acute) Annual physical exam (Acute) Multiple duodenal ulcers (Acute) Colon cancer screening (Acute) Recurrent UTI (Acute) Chronic idiopathic constipation (Acute) Insomnia (Acute) Functional urinary incontinence (Acute) Cardiomegaly (Acute) Oropharyngeal dysphagia (Acute) High cholesterol (Acute) Chronic kidney disease, stage 3 (Acute) Adult failure to thrive (Acute) BPH (benign prostatic hyperplasia) (Acute) GERD (gastroesophageal reflux disease) (Acute) Tremor (Acute) Dry eyes (Acute) Hypothyroidism (Acute) Claudia onychomycosis (Acute) Aortic aneurysm, abdominal (Acute) Spinal cord injury (Acute) Essential (primary) hypertension (Acute) Hepatitis C (Acute) Schizophrenia, unspecified (Acute) Past Medical History Medical History (Updated 09/03/23 @ 11:06 by Traci Bosch, RN) Recurrent UTI HTN (hypertension) Physical exam Acute diarrhea Hypokalemia Decubitus ulcer of coccyx Hospital discharge follow-up Elevated AFP Hepatitis B core antibody positive Claudia onychomycosis Aortic aneurysm, abdominal ETOH abuse Pernicious anemia Intentional self-harm by jumping from a high place, sequela History of femur fracture Spinal cord injury Fracture of lumbar spine with cord lesion Incontinence of feces Essential (primary) hypertension Hepatitis C Schizophrenia, unspecified Family History Family history of problems with anesthesia: No Surgical History Surgical History (Updated 09/03/23 @ 10:48 by Traci Bosch, RN) History of esophagogastroduodenoscopy (EGD) Hx of colonoscopy S/P total hip arthroplasty History of Problems with Anesthesia: No Social History Social History Housing: Assisted Living Facility Alcohol intake: never Patient Tobacco Use Status: Never used Tobacco e-Cigarette/Vaping Use: Never Used Second Hand Smoke Exposure: No service: No Current occupational status: disabled Cognitive needs: Yes (wheelchair) Hearing needs: No Vision needs: No Meds Allergies Allergy/AdvReac Type Severity Reaction Status Date / Time clozapine Allergy Unknown Unknown Verified 05/04/23 11:22 Home Medications ?Medication ?Instructions ?Recorded ?Confirmed ?Last Taken ?Type facial-body wipes #384 ea 06/11/20 05/04/23 Unknown History lorazepam 1 mg tablet 1 mg PO DAILY 01/10/22 09/03/23 Unknown History citalopram 40 mg tablet 40 mg PO DAILY 04/29/22 09/03/23 Unknown History clonidine HCl 0.1 mg tablet 0.1 mg PO DAILY PRN Agitation 09/08/22 09/03/23 Unknown History melatonin 10 mg capsule 10 mg PO BEDTIME 09/08/22 09/03/23 Unknown History olanzapine 20 mg tablet (Zyprexa) 20 mg PO DAILY 09/08/22 09/03/23 Unknown History diphenhydramine HCl 25 mg capsule 25 mg PO TID PRN Anxiety 12/30/22 09/03/23 Unknown History (Banophen) trazodone 100 mg tablet 100 mg PO BEDTIME 01/28/23 09/03/23 Unknown History Exam Height,Weight and Vital Signs: Height 6 ft 1 in Assessment and Plan Assessment Anesthesia Assessment: Chart Reviewed Final Anesthetic Review Family History of Problems with Anesthesia: No History of Problems with Anesthesia: No
--- NOTE | 2023-09-07 07:41 | MHC.SHP ---
Pre-Procedural Eval Section A - 24 Hr Update-Section A only Date of Service: 09/07/23 The patient is an INPATIENT: No The patient has been examined within 24 hours of the surgical procedure. 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 Hepatitis C History of femur fracture Hospital discharge follow-up HTN (hypertension) Hypokalemia Intentional self-harm by jumping from a high p) History of Previous Operations: Relevant previous surgery/procedure and date(s) (Hx of colonoscopy No history of previous surgery S/P total hip arthroplasty) Allergies: Allergies Allergy/AdvReac Type Severity Reaction Status Date / Time clozapine Allergy Unknown Unknown Verified 09/07/23 07:02 Review of Systems Sugical H&P ROS: Negative: Constitution, Cardiovascular, Respiratory and Gastrointestinal Exam Surgical H&P Exam: Normal: Heart, Normal: Lungs, Normal: Extremities and Normal: Abdomen Plan Diagnosis/Plan: Unchanged I have reviewed the history and physical and performed a pertinent physical examination on my patient. No changes have occurred unless specified. Time Spent With Patient Time: Total time managing care of this patient today ____ minutes.
[2023-09-07 07:42] VITALS: BP 176/83; PULSE 55; RESP 18; TEMP 36.8; O2SAT 96
[2023-09-07] MEDS: Lactated Ringers 1,000 ML 100 ML IVCONT (07:49)
[2023-09-07 08:04] LABS: Anion Gap 15 (12-20); Blood Urea Nitrogen 31 mg/dL (9-16); Calcium 9.4 mg/dL (8.4-10.2); Carbon Dioxide 21 mmol/L (22-29); Chloride 110 mmol/L (96-108); Estimated Glomerular Filt Rate 37; Glucose Fasting 88 mg/dL (60-99); Sodium 141 mmol/L (135-145)
[2023-09-07 08:12] VITALS: BMI 21.8
--- NOTE | 2023-09-07 08:40 | PC.NURSE ---
dr. hanks reviewed labs that were drawn this morning.
--- NOTE | 2023-09-07 08:56 | W.PM.OPN ---
Operative Note Operative Note Date of Service: 09/07/23 Narrative: FLEXIBLE TRANSORAL UPPER GASTROINTESTINAL ENDOSCOPY WITH BIOPSIES Pre-op diagnosis: Fu of erosive esophagitis and multiple duodenal ulcer Post-op diagnosis: GERD, Hiatal hernia, Gastritis, gastric polyp Endoscopist:? Tabatha Dorantes MD Anesthesia:?MAC UPPER ENDOSCOPY Consent: Indications for the procedure and potential complications of bleeding, perforation, reaction to medications and missed diagnosis were discussed with the patient's HCP and informed verbal consent was obtained over the phone. Instrument: Olympus GIF H 190 mid size upper endoscope Monitoring: Vital signs and clinical assessment, continuous EKG monitoring, Pulse oximetry, Carbon Dioxide monitoring and blood pressure monitoring were done throughout the procedure. Procedure: The patient was placed in the left lateral decubitis position and pre-procedure medications were administered and a bite block was placed. The endoscope was inserted into the mouth and advanced under direct vision to the third part of duodenum. A careful inspection was made as the upper endoscope was withdrawn including a retroflexed examination of the proximal stomach; Findings and interventions are described below. Findings: Larynx: Normal Esophagus: GE junction at 38 cms, small hiatal hernia 38 to 40 cms. Esophagitis seen on previous EGD appears to have healed completely Stomach: A 10 mm benign appearing polyp in the proximal gastric body along the greater curve - removed with a cold biopsy. Mild gastric antral erythema - biopsies were obtained from the antrum. Grade 2 flap valve on retroflexed examination of the cardia. Duodenum: Normal bulb and descending duodenum Ulcers seen on previous EGD have healed Intervention: Biopsies as noted above Impression and Post Procedure Diagnosis: Endoscopy Findings: ESOPHAGUS: Small hiatal hernia. Esophagitis seen on previous EGD appears to have healed completely STOMACH: Gastritis and a gastric polyp Plan: Pt has a FU appointment on 09/17/23 with Dionne Meza NP. Above findings were reviewed with the patient and relevant handouts were given and the discharge area.
[2023-09-07 08:57] VITALS: BP 119/63; PULSE 57; RESP 18; TEMP 36.7; O2SAT 100
[2023-09-07 09:12] VITALS: BP 144/67; PULSE 58; RESP 16; O2SAT 98
[2023-09-07 09:27] VITALS: BP 163/76; PULSE 57; RESP 16; TEMP 36.4; O2SAT 98
== END 2023-09-07 10:03 | disposition home or self-care (01) ==
PROVIDERS: Nurse Practitioner; PCP Physician Assistant; Visit Provider Internal Medicine Gastroenterology
PROC: 0DJ08ZZ Inspection of Upper Intestinal Tract, Via Natural or Artificial Opening Endoscopic (ICD-10-PCS; CPT 43235; principal; 2023-09-07 08:30)
DX: K21.9 Gastro-esophageal reflux disease without esophagitis (principal); K29.50 Unspecified chronic gastritis without bleeding; K31.7 Polyp of stomach and duodenum; K44.9 Diaphragmatic hernia without obstruction or gangrene; F10.10 Alcohol abuse, uncomplicated; I10 Essential (primary) hypertension; F20.9 Schizophrenia, unspecified; Z91.52 Personal history of nonsuicidal self-harm; Z87.81 Personal history of (healed) traumatic fracture; Z79.899 Other long term (current) drug therapy; Z88.8 Allergy status to other drugs, medicaments and biological substances; Z99.3 Dependence on wheelchair; Z98.890 Other specified postprocedural states
CPT/HCPCS: 43239; 36415; 80048; 88305; 88342; J2704

== ENCOUNTER → 2023-09-07 06:58 | Outpatient (BNV) | payer MEDICARE, MEDICAID, SELFPAY | PROVIDERS: PCP Physician Assistant; Visit Provider Internal Medicine Gastroenterology | DX: K21.9 Gastro-esophageal reflux disease without esophagitis (principal); K29.70 Gastritis, unspecified, without bleeding; K31.7 Polyp of stomach and duodenum | CPT/HCPCS: 43239 ==

== ENCOUNTER 2023-10-29 14:41 | Outpatient (AMB) | payer MEDICARE, MEDICAID, SELFPAY ==
--- NOTE | 2023-10-29 14:50 | MHC.OFFVIS ---
Vital Signs 10/29/23 15:03 Height 6 ft 1 in BP 141/70 H Blood Pressure Location Lt brachial Position Sitting Pulse 69 Intake Visit Reasons: s/p EGD Intake Note: Patient in office today in follow up s/p EGD. CC: Patient with staff from [facility] who reports that the patient is doing well. 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 The patient says that he will have left lower quadrant pain that radiates along the path of the colon upwards and caused him nausea and trouble sleeping at night. He also complains that he has pains in various areas of the chest which sounds more musculoskeletal. He continues to use esomeprazole twice a day and on the bisacodyl appears to be moving his bowels well. This could be bowel spasm so I will give him a trial of dicyclomine at bedtime to see if this is helpful. He also complains of insomnia in general which is a longstanding complaint for which he does to have some medication. The EGD is upcoming in January to assess for healing of his multiple duodenal ulcers. Return office visit after the procedure. Medications: New dicyclomine 20 mg PO BEDTIME 30 days 30 tabs 6RF R10.32 - Left lower quadrant pain EGD 09/07/23 Findings: Larynx: Normal Esophagus: GE junction at 38 cms, small hiatal hernia 38 to 40 cms. Esophagitis seen on previous EGD appears to have healed completely Stomach: A 10 mm benign appearing polyp in the proximal gastric body along the greater curve - removed with a cold biopsy. Mild gastric antral erythema - biopsies were obtained from the antrum. Grade 2 flap valve on retroflexed examination of the cardia. Duodenum: Normal bulb and descending duodenum Ulcers seen on previous EGD have healed Intervention: Biopsies as noted above Impression and Post Procedure Diagnosis: Endoscopy Findings: ESOPHAGUS: Small hiatal hernia. Esophagitis seen on previous EGD appears to have healed completely STOMACH: Gastritis and a gastric polyp Plan: BIOPSY Received: 09/07/23 ADDENDUM REPORT Addendum Addendum #1 Immunostains for H. pylori on A and B are negative. Control stains appropriately. Electronically Signed By: Sandra Daniels 09/10/23 0859 Diagnosis A. Gastric antrum, biopsy: Gastric antral mucosa with reactive changes, congestion, and minimal chronic inactive gastritis; negative for intestinal metaplasia and dysplasia. B. Gastric polyp, biopsy: Fundic gland polyp with minimal chronic inactive inflammation; negative for intestinal metaplasia and dysplasia. Comment: Immunostains for H. pylori pending; addendum to follow TODAY'S VISIT We review the results of his last endoscopy but he is happy to report that all of his abdominal pain has resolved utilizing dicyclomine. Obviously we will continue this therapy at this point he remains satisfied with his GI regimen. Return office visit in 6 months [facility] Medical History (Updated 11/26/23 @ 10:16 by Michi Hsieh PA-C) Annual physical exam Colon cancer screening Recurrent UTI HTN (hypertension) Physical exam Acute diarrhea Hypokalemia Decubitus ulcer of coccyx Hospital discharge follow-up Elevated AFP Hepatitis B core antibody positive Claudia onychomycosis Aortic aneurysm, abdominal ETOH abuse Pernicious anemia Intentional self-harm by jumping from a high place, sequela History of femur fracture Spinal cord injury Fracture of lumbar spine with cord lesion Incontinence of feces Essential (primary) hypertension Hepatitis C Schizophrenia, unspecified Surgical History History of esophagogastroduodenoscopy (EGD) Hx of colonoscopy S/P total hip arthroplasty Social History Housing: Assisted Living Facility Alcohol intake: never Patient Tobacco Use Status: Never used Tobacco e-Cigarette/Vaping Use: Never Used Second Hand Smoke Exposure: No service: No Current occupational status: disabled Cognitive needs: Yes (wheelchair) Hearing needs: No Vision needs: No Review of Systems Const Denies fatigue, Denies fever(s), Denies night sweats, Denies poor appetite and Denies weight loss ENT Reports Normal hearing present, Denies dental pain, Denies dysphagia, Denies hearing loss, Denies mouth pain, Denies odynophagia, Denies throat swelling, Denies tongue swelling and Reports other (Dentition adequate) Card Reports no additional complaints Resp Reports no additional complaints GI Details: Denies abdominal pain, Denies melena, Denies bloating, Denies hematochezia, Reports constipation, Reports GI cramping, Denies dysphagia, Denies excessive flatus, Denies early satiety, Reports heartburn, Denies diarrhea, Denies nausea, Denies odynophagia, Denies vomiting and Denies hematemesis Skin/Breast Denies pruritus, Denies lesions, Denies rash and Denies jaundice Neuro Reports Normal hearing present and Denies Abnormal speech present Endo Denies fatigue Aller/Immun Denies throat swelling and Denies tongue swelling Physical Exam Vital Signs: Last Vital Signs Pulse 69 10/29/23 15:03 BP 141/70 H 10/29/23 15:03 Const General: cooperative, no acute distress, well developed and well groomed Nutritional Appearance: average body habitus and well nourished Orientation/consciousness: oriented to person, oriented to place and oriented to time Limitations: No language barrier HEENT Head: Yes normocephalic and Yes atraumatic Eyes General: appearance normal, both eyes and all related structures Pupils: Equal, round and reactive pupils present Neck Neck: Yes normal visual inspection and Yes no lymphadenopathy Thyroid: Thyroid normal Resp Effort & Inspection: normal respiratory effort and able to speak in complete sentences Auscultation: clear to auscultation bilaterally Cardio Rate: regular rate Rhythm: regular rhythm Heart sounds: Normal, physiologic split S2 sound present Peripheral pulses: radial pulses present and posterior tibial pulses present GI Inspection: No distended and No Abdominal panniculus present Palpation (GI): Soft to palpation, nontender, no guarding, not rigid and No hepatosplenomegaly present Percussion: Yes normal to percussion Auscultation: normal bowel sounds Rectal Exam - Male: Yes deferred Skin General skin exam: no rashes or lesions noted, turgor normal, skin not dry, no jaundice, No spider nevi and no striae Rashes: no rashes Nails: normal Neuro General: oriented to person, oriented to place and oriented to time Cranial nerves: Yes Equal, round and reactive pupils present and Yes Normal hearing present Speech: No Abnormal speech present Extrem General: Yes normal to inspection, No clubbing, No cyanosis and No edema Psych Appearance: grossly normal and well kempt Mental Status: mental status grossly normal Speech and movement: Normal speech and movement present Affect: normal affect Attitude: cooperative Thought process: Normal thought process present and not confabulating Thought content: Normal thought content present Insight: Limited insight present (Psych) Judgement: Limited judgement present (Psych) Assessment & Plan Assessment & Plan (1) Chronic idiopathic constipation: Code(s): K59.04 - Chronic idiopathic constipation Category: Medical (2) GERD (gastroesophageal reflux disease): Code(s): K21.9 - Gastro-esophageal reflux disease without esophagitis Category: Medical Plan We review the results of his last endoscopy but he is happy to report that all of his abdominal pain has resolved utilizing dicyclomine. Obviously we will continue this therapy at this point he remains satisfied with his GI regimen. He also continues on his Linzess 290 micro g, bisacodyl 2 tabs at bedtime, milk of magnesia as needed, and omeprazole 20 mg twice a day. Return office visit in 6 months Coding Level of Care Code Est Pt Level 3 (73565) Diagnoses Chronic idiopathic constipation K59.04 GERD (gastroesophageal reflux disease) K21.9
[2023-10-29 15:03] VITALS: BP 141/70; PULSE 69
== END 2023-10-29 15:47 | disposition home or self-care (01) ==
PROVIDERS: PCP Physician Assistant; Visit Provider Nurse Practitioner
DX: K59.04 Chronic idiopathic constipation (principal); K21.9 Gastro-esophageal reflux disease without esophagitis
CPT/HCPCS: 99213

== ENCOUNTER → 2023-10-29 14:41 | Outpatient (BNVA) | payer MEDICARE, MEDICAID, SELFPAY | PROVIDERS: PCP Physician Assistant; Visit Provider Nurse Practitioner | DX: K59.04 Chronic idiopathic constipation (principal); K29.81 Duodenitis with bleeding; K21.9 Gastro-esophageal reflux disease without esophagitis; R10.32 Left lower quadrant pain | CPT/HCPCS: 99212 ==

== ENCOUNTER → 2023-11-03 14:39 | Outpatient (BNVA) | payer MEDICARE, MEDICAID, SELFPAY | PROVIDERS: PCP Physician Assistant; Visit Provider Physician Assistant | DX: Z00.01 Encounter for general adult medical examination with abnormal findings (principal); F20.9 Schizophrenia, unspecified; I12.9 Hypertensive chronic kidney disease with stage 1 through stage 4 chronic kidney disease, or unspecified chronic kidney disease; N18.30 Chronic kidney disease, stage 3 unspecified; I71.43 Infrarenal abdominal aortic aneurysm, without rupture; E03.9 Hypothyroidism, unspecified; K29.81 Duodenitis with bleeding; K59.09 Other constipation; F51.01 Primary insomnia | CPT/HCPCS: 96127; 99397 ==

== ENCOUNTER 2023-11-03 14:40 | Outpatient (AMB) | payer MEDICARE, MEDICAID, SELFPAY ==
--- NOTE | 2023-11-03 14:43 | MHC.PC.OV ---
Vital Signs 11/03/23 14:56 Height 6 ft 1 in Weight 182 lb BMI 24.0 BP 118/70 Blood Pressure Location Rt brachial Position Sitting Respiration 15 Pulse 65 Pulse Source Pulse Oximeter Pulse Oximetry (%) 96 Oxygen Delivery Method Room Air Intake Visit Reasons: AWV Intake Note: Patient is here today for a physical. 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 He is wheelchair-bound due to unsteadiness in his feet and history of traumatic hip fracture/spinal cord injury with hardware placement. ?? 71-year-old male with a past medical history significant for schizophrenia, wheelchair dependent , history of alcohol abuse, distant history of AAA, hypothyroidism, hypertension. INTERVAL HISTORY-- .. Chronic constipation: Continues to follow GI specialist and has been using Linzess with good effect. CKD stage 3:? Noted most recent creatinine at 1.8. advised staff to keep him well hydrated. ? Will continue to follow creatinine. .. Hypertension:? Blood pressure acceptable today in office.? He reports he denies any chest pain, shortness of breath, blurry vision.? Is now off blood pressure medication due to having low blood pressures in the past.? . Hypothyroidism:? Most recent TSH normal.? Will continue current dose of levothyroxine. Will continue to follow TSH .. Schizophrenia:? Has establish care with psychiatrist Dr. Escalona whom was now managing his his mental health medications --> he does report having some trouble sleeping on lichen new medication to help him sleep. . Hepatitis-C: Being followed by gastroenterology and is hepatitis C has been treated .. Spinal cord injury:? Continues to be wheelchair bound secondary to his spinal cord injury.? It is unclear what has caused this though group members from the home report he had had a suicide attempt which caused him to be paralyzed.. Patient is also incontinent of urine and stool.? [facility] requesting scripts for gloves, see any wipes and incontinent pads He does use Pal lift for transfers Colonoscopy: Followed by gastroenterology- up-to-date with colonoscopy Vaccines: Up-to-date with COVID, pneumonia considering flu vaccine, up-to-date with tetanus vaccine Laboratory Tests 03/27/22 09/07/23 11:19 07:37 Hgb 14.2 Creatinine 1.71 H 1.80 H PFS Medical History (Updated 11/04/23 @ 07:30 by Michi Hsieh PA-C) Annual physical exam Colon cancer screening Recurrent UTI HTN (hypertension) Physical exam Acute diarrhea Hypokalemia Decubitus ulcer of coccyx Hospital discharge follow-up Elevated AFP Hepatitis B core antibody positive Claudia onychomycosis Aortic aneurysm, abdominal ETOH abuse Pernicious anemia Intentional self-harm by jumping from a high place, sequela History of femur fracture Spinal cord injury Fracture of lumbar spine with cord lesion Incontinence of feces Essential (primary) hypertension Hepatitis C Schizophrenia, unspecified Surgical History History of esophagogastroduodenoscopy (EGD) Hx of colonoscopy S/P total hip arthroplasty Social History Housing: Assisted Living Facility Alcohol intake: never Patient Tobacco Use Status: Never used Tobacco e-Cigarette/Vaping Use: Never Used Second Hand Smoke Exposure: No service: No Current occupational status: disabled Cognitive needs: Yes (wheelchair) Hearing needs: No Vision needs: No Questionnaire PHQ-9 Over the last 2 weeks, how often have you been bothered by any of the following problems? 1. Little interest or pleasure in doing things: not at all 2. Feeling down, depressed, or hopeless: not at all 3. Trouble falling or staying asleep, or sleeping too much: not at all 4. Feeling tired or having little energy: not at all 5. Poor appetite or overeating: not at all 6. Feeling bad about yourself - or that you are a failure or have let yourself or your family down: not at all 7. Trouble concentrating on things, such as reading the newspaper or watching television: not at all 8. Moving or speaking so slowly that other people could have noticed. Or the opposite - being so fidgety or restless that you have been moving around a lot more than usual: not at all 9. Thoughts that you would be better off or of hurting yourself in some way: not at all Total score: 0 Depression Screening Interpretation: Negative Depression Screening Done: Yes 94087 - PHQ-9 Billing: Yes Source: Developed by Drs. Dat Jimenez, Kylah Edmondson, Francis Melendez and colleagues, with an educational jethro from [employer]. Thrive Questionnaire Date Thrive assessed: 11/03/23 I am a: Patient What is your living situation today?: I have a steady place to live Within the past 12 months, did the food you bought not last and you didn't have the money to get more?: Never true Within the past 12 months, did you worry whether your food would run out before you got money to buy more?: Never true Do you have trouble paying for medicines?: No Do you have trouble getting transportation to medical appointments?: No Do you have trouble paying your heating and electricity bill?: No Do you have trouble taking care of your child, family member or friend?: No Do you have trouble with day-to-day activities such as bathing, preparing meals, shopping, managing finances, etc.?: No Are you currently unemployed and looking for a job?: No Are you interested in more education?: No Please select the resources that you would like help with: None Currently or been in a relationship where the following occur: No concerns reported THRIVE Score: 0 AUDIT C Alcohol Use Questionnaire (AUDIT-C) 1. How often do you have a drink containing alcohol?: Never 3. How often do you have six or more drinks on one occasion?: Never Total Score: 0 FROILAN-7 AMB Questionnaire FROILAN-7 Date FROILAN - 7 assessed: 11/03/23 Feeling nervous, anxious, or on edge: 0 = Not at all Not being able to stop or control worryin = Not at all Worrying too much about different things: 0 = Not at all Trouble relaxin = Not at all Being so restless that it is hard to sit still: 0 = Not at all Becoming easily annoyed or irritable: 0 = Not at all Feeling afraid as if something awful might happen: 0 = Not at all Total FROILAN-7 score (0-4 normal; 5-9 mild; 10-14 moderate; 15-21 severe): 0 Source: Developed by Drs. Dat Jimenez, Kylah Edmondson, Francis Melendez and colleagues, with an educational jethro from [employer]. FROILAN-7 Assessment Billing FROILAN-7 Assessment Tool: FROILAN-7 Assessment 89653 Review of Systems Const Denies body aches, Denies chills, Denies excessive sweating, Denies fatigue, Denies fever(s) and Denies headache(s) Eyes Denies blurry vision ENT Denies dysphagia, Denies vertigo, Denies dizziness, Denies headache(s), Denies hearing loss and Denies tinnitus Card Denies chest pain, Denies chest pain with activity, Denies syncope, Denies irregular heart rhythm and Denies dyspnea Resp Denies chest congestion, Denies cough, Denies hemoptysis, Denies dyspnea and Denies wheezing GI Denies abdominal pain, Denies melena, Denies hematochezia, Denies coffee ground emesis, Denies dysphagia, Denies diarrhea, Denies nausea and Denies vomiting Denies difficulty urinating, Denies dysuria, Denies urinary frequency, Denies urinary hesitancy and Denies urinary urgency Musc Denies arthralgias, Denies limited range of motion, Denies muscle cramps and Denies muscle weakness Skin/Breast Denies rash and Denies skin ulcer Neuro Denies Abnormal speech present, Denies confusion, Denies vertigo, Denies dizziness, Denies syncope, Denies headache(s), Denies memory loss and Denies seizure-like activity Psych Denies anxiety, Denies confusion, Denies depression, Denies memory loss, Denies panic attacks and Denies paranoia Endo Denies excessive sweating, Denies fatigue, Denies flushing, Denies polydipsia and Denies polyuria Aller/Immun Denies wheezing Physical exam (Primary Care) Vital Signs: Last Vital Signs Pulse 65 11/03/23 14:56 Resp 15 11/03/23 14:56 BP 118/70 11/03/23 14:56 Pulse Ox 96 11/03/23 14:56 Oxygen Delivery Method Room Air 11/03/23 14:56 BMI result Body Mass Index 24.0 Tobacco/Smoking Status: Tobacco use Status Tobacco use date assessed 05/04/23 11/03/23 14:43 Patient Tobacco Use Status Never used Tobacco 11/03/23 14:43 e-Cigarette/Vaping Use Never Used 11/03/23 14:43 PHQ-9: PHQ-9 Score PHQ-9: Total score 0 11/03/23 15:03 Depression Screening Interpretation: Negative Thrive Assessment: Date of Thrive Assessment Date Thrive assessed 11/03/23 11/03/23 14:57 Currently or been in a relationship where the following occur: No concerns reported Const General: cooperative, comfortable, no acute distress, alert and awake; No confusion Orientation/consciousness: oriented to person, oriented to place, patient oriented x3 and No confusion HENMT Head: Yes normocephalic Ears: external ears normal and TM's normal bilaterally Face and sinus: No sinus tenderness Mouth: Normal oral and palatal mucosa present and tongue normal Teeth and gingiva: dentition normal and gingiva normal Throat: Yes posterior oropharynx normal, Yes tonsils normal and Yes uvula midline Eyes Conjunctivae: conjunctivae normal Sclerae: sclerae normal Pupils: Equal, round and reactive pupils present EOM: EOMs intact bilaterally Direct Ophthalmoscopy: No no photophobia Neck Neck: Yes no lymphadenopathy, No tender and Yes no JVD Thyroid: Thyroid normal Carotids: no bruits Chest Chest palpation & inspection: no tenderness Resp Effort & Inspection: normal respiratory effort, no audible wheezes, not labored and no stridor Auscultation: no crackles, no rales, no rhonchi and no wheezes Cardio Jugular venous distension: no JVD Rate: regular rate, not bradycardic and not tachycardic Rhythm: regular rhythm Bruits: no carotid bruits Peripheral pulses: Peripheral pulses 2+ throughout GI Inspection: Yes normal to inspection, No abdominal wall ecchymosis and No visible herniation Palpation (GI): Soft to palpation, nontender, no guarding, not rigid and No hepatosplenomegaly present Auscultation: normoactive bowel sounds General: Yes no CVA tenderness Back/Spine/Pelvis Back: no CVA tenderness and No back tenderness Cervical Spine: cervical ROM normal Thoracic/Lumbar Spine: thoracic and lumbar spine normal to inspection, straight leg raise negative bilaterally, No thoraco-lumbar ROM limited and No lumbar spinal tenderness Skin Lesions: no lesions Rashes: no rashes Wounds: no wounds Neuro General: oriented to person, oriented to place, patient oriented x3, CN's II-XI intact bilaterally and No confusion Cranial nerves: Yes Equal, round and reactive pupils present and Yes Normal accommodation reflex present Cognition (Neuro): normal cognition Speech: No Abnormal speech present Gait exam (Neuro): Normal gait present Motor exam (neuro): 5/5 motor strength present throughout Extrem Right upper extremity: full ROM; no cyanosis Left upper extremity: full ROM; no cyanosis Right lower extremity: no edema Left lower extremity: no edema Psych Appearance: grossly normal Mental Status: mental status grossly normal Affect: normal affect Attitude: cooperative Thought process: Normal thought process present Assessment and Plan Assessment & Plan (1) Annual physical exam: Code(s): Z00.00 - Encounter for general adult medical examination without abnormal findings (2) Essential (primary) hypertension: Code(s): I10 - Essential (primary) hypertension Plan: Patient's blood pressure acceptable today in office. [facility] blood pressure been stable. Will continue his current dose of amlodipine with goal blood pressure to be below 140/90 (3) Schizophrenia, unspecified: Code(s): F20.9 - Schizophrenia, unspecified Qualifiers: Schizophrenia type: unspecified Qualified Code(s): F20.9 - Schizophrenia, unspecified Plan: Patient followed by Psychiatry (Dr escalona) in continues to manage his mental health medications. Has seemed to be stable at home no behavioral complaints from home healthcare workers. No further complaints about sleep. (4) Chronic kidney disease, stage 3: Code(s): N18.30 - Chronic kidney disease, stage 3 unspecified Qualifiers: Chronic kidney disease stage 3 subtype: unspecified whether 3a or 3b Qualified Code(s): N18.30 - Chronic kidney disease, stage 3 unspecified Plan: Patient's most recent creatinine at 1.8, .. Will continue to follow renal function. Will continue to avoid nephrotoxins. (5) Spinal cord injury: Plan: Has spinal cord injury secondary to suicide attempt. Continues to be wheelchair dependent and has unsteady gait. Continues to live in a long-term whom he received 24 hour care from. (6) Aortic aneurysm, abdominal: Comment: 4.2 X 3.2 cm as of 05/29/23 US ordered by WILLIAM Brown-had been evaluated by vascular in past, has not had aneurysm repaired to date Code(s): I71.4 - Abdominal aortic aneurysm, without rupture Qualifiers: Abdominal aorta location: infrarenal aorta Presence of rupture: without rupture Qualified Code(s): I71.43 - Infrarenal abdominal aortic aneurysm, without rupture Plan: Has an aortic aneurysm, last evaluated in 2019 at 4.8 cm. Will recheck with ultrasound as surveillance to see if there is any enlarging. Orders: Orders Complete Blood Count no Diff 11/03/23 N18.30 - Chronic kidney disease, stage 3 unspecified TSH reflex Free T4 11/03/23 E03.9 - Hypothyroidism, unspecified Lipid Panel 11/03/23 E78.00 - Pure hypercholesterolemia, unspecified Comprehensive [place]. Panel Fast 11/03/23 N18.30 - Chronic kidney disease, stage 3 unspecified Medications: Refilled amlodipine 5 mg PO DAILY 90 tabs 1RF 90 days I10 - Essential (primary) hypertension omeprazole 20 mg PO .twice a day 60 caps 0RF 30 days K29.81 - Duodenitis with bleeding nitrofurantoin macrocrystal 50 mg PO DAILY 28 caps 6RF E03.9 - Hypothyroidism, unspecified magnesium hydroxide (Milk Of Magnesia Concentrated) If no bowel movement for 3 days start Milk mag, Give for 3 days and if no bowel movement discontinue and start MiraLax 30 mL PO DAILY PRN 1,000 mL 3RF constipation 30 days K59.09 - Other constipation lisinopril 5 mg PO DAILY 30 tabs 6RF I10 - Essential (primary) hypertension levothyroxine take 1 hour before food or meds in the morning 75 mcg PO DAILY 90 tabs 2RF E03.9 - Hypothyroidism, unspecified docusate sodium (Colace) 100 mg PO BID 180 caps 6RF 90 days K59.04 - Chronic idiopathic constipation diphenhydramine HCl (Benadryl) 25 mg PO BEDTIME 90 caps 3RF sleep 90 days F51.01 - Primary insomnia acetaminophen (Tylenol Extra Strength) 1,000 mg (2 x 500 mg) PO Q6H PRN 40 tabs 0RF fever or pain 5 days R05.9 - Cough, unspecified cholecalciferol (vitamin D3) 1,250 mcg PO .QMONTH 12 caps 3RF I10 - Essential (primary) hypertension Coding Level of Care Code Est Pt Prev Care >65y(77364) Diagnoses Annual physical exam Z00.00 Essential (primary) hypertension I10 Schizophrenia, unspecified type F20.9 Schizophrenia type: unspecified Stage 3 chronic kidney disease, unspecified whether stage 3a or 3b CKD N18.30 Chronic kidney disease stage 3 subtype: unspecified whether 3a or 3b Spinal cord injury Infrarenal abdominal aortic aneurysm (AAA) without rupture I71.43 Abdominal aorta location: infrarenal aorta Presence of rupture: without rupture Additional Codes FROILAN-7 Assessment Billing - FROILAN-7 Assessment Tool: FROILAN-7 Assessment 89311 ([id number])
[2023-11-03 14:56] VITALS: BP 118/70; PULSE 65; RESP 15; O2SAT 96; BMI 24.0
== END 2023-11-03 15:17 | disposition home or self-care (01) ==
PROVIDERS: PCP Physician Assistant; Visit Provider Physician Assistant
DX: Z00.00 Encounter for general adult medical examination without abnormal findings (principal); I12.9 Hypertensive chronic kidney disease with stage 1 through stage 4 chronic kidney disease, or unspecified chronic kidney disease; F20.9 Schizophrenia, unspecified; N18.30 Chronic kidney disease, stage 3 unspecified; I71.43 Infrarenal abdominal aortic aneurysm, without rupture

== ENCOUNTER 2023-11-26 09:39 | Outpatient (AMB) | payer MEDICARE, MEDICAID, SELFPAY ==
[2023-11-26 09:43] VITALS: BP 156/88; PULSE 77; O2SAT 97
--- NOTE | 2023-11-26 09:43 | A.OFFPC_ITS ---
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: No Accompanied by: Program Allergies clozapine Allergy (Unknown, Verified 11/26/23 10:03) Unknown Medication List - Last Reconciled 11/26/23 by Michi Hsieh PA-C acetaminophen (Tylenol Extra Strength) 1,000 mg (2 x 500 mg) PO Q6H PRN 5 days amlodipine 5 mg PO DAILY 90 days artifi.tears(hypromellose)(PF) 0.3% 1 drp ophthalmic (eye) DAILY PRN 30 days benzonatate 100 mg PO .q8hr PRN bisacodyl 10 mg (2 x 5 mg) PO DAILY [Blood pressure cuff As directed] cholecalciferol (vitamin D3) 1,250 mcg PO .QMONTH citalopram 40 mg PO DAILY clonidine HCl 0.1 mg PO DAILY PRN dextromethorphan-guaifenesin 5-100 mg/5 mL (Robitussin Cough-Chest Congestion DM) 10 mL PO Q6H PRN 30 days dicyclomine 20 mg PO BEDTIME diphenhydramine HCl (Benadryl) 25 mg PO BEDTIME 90 days disposable gloves (Nitrile Exam Gloves) As directed disposable gloves (Biobrane Gloves Large) As directed docusate sodium (Colace) 100 mg PO BID 90 days facial-body wipes As directed incontinence pad, liner, disp As directed Lactobacillus rhamnosus GG (Culturelle) 1 cap PO DAILY 90 days levothyroxine 75 mcg PO DAILY linaclotide (Linzess) 290 mcg PO QAM lisinopril 5 mg PO DAILY loperamide (Imodium A-D) 2 mg PO Q4H PRN lorazepam 1 mg PO DAILY magnesium hydroxide (Milk Of Magnesia Concentrated) 30 mL PO DAILY PRN 30 days melatonin 10 mg PO BEDTIME nitrofurantoin macrocrystal 50 mg PO BEDTIME 90 days olanzapine (Zyprexa) 20 mg PO DAILY omeprazole 20 mg PO .twice a day 30 days trazodone 100 mg PO BEDTIME Tobacco use date assessed: 05/04/23 Fall risk assessment: No Falls in past year Last assessed Fall Risk: 11/26/23 Dental Screening Dental Screen Date: 05/04/23 HPI 11/20 [facility] 2 HPI0 Details Patient is a 73-year-old male here today for an ER follow-up visit. Was presented to ER at [facility] for not acting like himself little more lethargic than usual. Patient's workup with labs including CT head and Abd and imaging was unremarkable. [facility]'s penit[facility] concerned about patient's swallowing and coughing during eating. They are asking for a swallowing exam to evaluate for any aspiration. CHRONIC MEDICAL CONDITIONS--> .. Chronic constipation: Continues to follow GI specialist and has been using Linzess with good effect. CKD stage 3:? Noted most recent creatinine at 1.8. advised staff to keep him well hydrated. ? Will continue to follow creatinine. .. Hypertension:? Blood pressure acceptable today in office.? He reports he denies any chest pain, shortness of breath, blurry vision.? Is now off blood pressure medication due to having low blood pressures in the past.? . Hypothyroidism:? Most recent TSH normal.? Will continue current dose of levothyroxine. Will continue to follow TSH .. Schizophrenia:? Has establish care with psychiatrist Dr. Escalona whom was now managing his his mental health medications --> he does report having some trouble s leeping on lichen new medication to help him sleep. . Hepatitis-C: Being followed by gastroenterology and is hepatitis C has been treated .. Spinal cord injury:? Continues to be wheelchair bound secondary to his spinal cord injury.? It is unclear what has caused this though group members from the home report he had had a suicide attempt which caused him to be paralyzed.. Patient is also incontinent of urine and stool.? shelter requesting scripts for gloves, see any wipes and incontinent pads He does use Pal lift for transfers [facility] Medical History (Updated 11/26/23 @ 10:16 by Michi Hsieh PA-C) Annual physical exam Colon cancer screening Recurrent UTI HTN (hypertension) Physical exam Acute diarrhea Hypokalemia Decubitus ulcer of coccyx Hospital discharge follow-up Elevated AFP Hepatitis B core antibody positive Claudia onychomycosis Aortic aneurysm, abdominal ETOH abuse Pernicious anemia Intentional self-harm by jumping from a high place, sequela History of femur fracture Spinal cord injury Fracture of lumbar spine with cord lesion Incontinence of feces Essential (primary) hypertension Hepatitis C Schizophrenia, unspecified Surgical History History of esophagogastroduodenoscopy (EGD) Hx of colonoscopy S/P total hip arthroplasty Social History Housing: Assisted Living Facility Alcohol intake: never Patient Tobacco Use Status: Never used Tobacco e-Cigarette/Vaping Use: Never Used Second Hand Smoke Exposure: No service: No Current occupational status: disabled Cognitive needs: Yes (wheelchair) Hearing needs: No Vision needs: No Questionnaire Thrive Questionnaire Date Thrive assessed: 11/03/23 FROILAN-7 AMB Questionnaire FROILAN-7 Date FROILAN - 7 assessed: 11/03/23 Source: Developed by Drs. Dat Jimenez, Kylah Edmondson, Francis Melendez and colleagues, with an educational jethro from [employer]. Review of Systems Const Denies headache(s) Eyes Denies loss of vision ENT Denies vertigo, Denies dizziness, Denies headache(s) and Denies sore throat Card Denies chest pain, Denies leg edema and Denies lightheadedness Resp Denies cough, Denies hemoptysis and Denies wheezing GI Denies abdominal pain, Denies melena, Denies constipation, Denies diarrhea and Denies vomiting Denies dysuria, Denies urinary frequency and Denies urinary urgency Musc Denies arthralgias, Denies joint swelling, Denies numbness and Denies tingling Neuro Denies Abnormal speech present, Denies behavioral changes, Denies vertigo, Denies dizziness, Denies headache(s), Denies loss of vision, Denies memory loss, Denies numbness and Denies tingling Psych Denies anxiety, Denies behavioral changes, Denies depression, Denies memory loss and Denies panic attacks Zhen/Lymph Denies easy bleeding and Denies easy bruising Aller/Immun Denies wheezing Physical exam (Primary Care) Vital Signs: Last Vital Signs Pulse 77 11/26/23 09:43 BP 156/88 H 11/26/23 09:43 Pulse Ox 97 11/26/23 09:43 Oxygen Delivery Method Room Air 11/26/23 09:43 Tobacco/Smoking Status: Tobacco use Status Tobacco use date assessed 05/04/23 11/26/23 09:47 Patient Tobacco Use Status Never used Tobacco 11/26/23 09:47 e-Cigarette/Vaping Use Never Used 11/26/23 09:47 Thrive Assessment: Date of Thrive Assessment Date Thrive assessed 11/03/23 11/26/23 09:47 Const General: healthy appearing, no acute distress, alert and awake Nutritional Appearance: well nourished Orientation/consciousness: oriented to person, oriented to place and oriented to time HENMT Ears: TM's normal bilaterally General nose exam: Normal nasal mucous membranes and turbinates present Eyes Conjunctivae: conjunctivae normal Sclerae: sclerae normal Pupils: Equal, round and reactive pupils present Neck Neck: Yes no lymphadenopathy and Yes no JVD Thyroid: Thyroid normal Carotids: no bruits Chest Chest/axillae images: 2 1. PAIN TO PALPATION IN THE AREA OUTLINED Resp Effort & Inspection: normal respiratory effort and not tachypneic Auscultation: no crackles, no rales, no rhonchi and no wheezes Cardio Rate: regular rate Rhythm: regular rhythm Heart sounds: no murmurs and normal S1 and S2 GI Palpation (GI): Soft to palpation, nontender, no hepatomegaly and no splenomegaly Auscultation: normal bowel sounds Skin General skin exam: no rashes or lesions noted and dry skin Neuro General: oriented to person, oriented to place and oriented to time Cranial nerves: Yes Equal, round and reactive pupils present Speech: No Abnormal speech present Gait exam (Neuro): Normal gait present Motor exam (neuro): no tremor noted Extrem Right upper extremity: full ROM Left upper extremity: full ROM Right lower extremity: full ROM; no edema Left lower extremity: full ROM; no edema Psych Mental Status: mental status grossly normal Speech and movement: Normal speech and movement present Affect: normal affect Attitude: cooperative Thought process: Normal thought process present Office Procedures Flu Questionnaire Does the patient have a severe egg allergy?: No Does the patient have severe life threatening allergies?: No Does the patient have a fever or illness today?: No Immunizations Fluarix Triv [id number] (PF) 45 mcg (15 mcg x 3)/0.5 mL IM syringe Performing Provider: Michi Hsieh PA-C Performing Location: [facility] Administered by: LOTTIE Escoto on 11/26/23 09:52 2 Dose Route Admin Location Dispensed Lot Number Expiration Date [employer]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 0.5 mL IM Left Deltoid 0.5 mL [id number] 08/08/24 79826-863-67 Easy Pairings 2 VIS Given Date VIS Provided VIS Publication Date 11/26/23 Single Vaccine 20 Eligibility Eligibility Date Funding Source Not C Eligible 11/26/23 Private Coding Level of Care Code Est Pt Level 4 (16367) Diagnoses Dysphagia, unspecified type R13.10 Dysphagia type: unspecified Right-sided chest pain R07.9 Assessment & Plan Assessment & Plan (1) Dysphagia: Code(s): R13.10 - Dysphagia, unspecified Category: Medical Qualifiers: Dysphagia type: unspecified Qualified Code(s): R13.10 - Dysphagia, unspecified Plan: Patient's penitentiary concerned about patient's swallowing and does have some coughing fits during eating. Will send patient over for modified barium swallow to evaluate for any aspiration during eating. Patient does have home nurses whom are interested in getting Florin compensatory strategies while eating. (2) Right-sided chest pain: Code(s): R07.9 - Chest pain, unspecified Category: Medical Plan: Patient does report some right-sided reproducible chest pain. Will send for chest x-ray and EKG Orders: Orders 2 ECG 12 lead EKG Today R07.9 - Chest pain, unspecified Influenza [id number] Immunization Today Z23 - Encounter for immunization [place] Modified Barium Swallow Today R13.10 - Dysphagia, unspecified, R13.12 - Dysphagia, oropharyngeal phase XR chest 2V Today R07.9 - Chest pain, unspecified Referrals 2 Speech and Hearing Referral R13.10 - Dysphagia, unspecified Medications: Refilled 2 lisinopril 5 mg PO DAILY 30 tabs 6RF I10 - Essential (primary) hypertension
== END 2023-11-26 10:38 | disposition home or self-care (01) ==
PROVIDERS: PCP Physician Assistant; Visit Provider Physician Assistant
DX: R13.10 Dysphagia, unspecified (principal); R07.9 Chest pain, unspecified

== ENCOUNTER → 2023-11-26 09:39 | Outpatient (BNVA) | payer MEDICARE, MEDICAID, SELFPAY | PROVIDERS: PCP Physician Assistant; Visit Provider Physician Assistant | DX: R13.10 Dysphagia, unspecified (principal); R07.9 Chest pain, unspecified; Z23 Encounter for immunization | CPT/HCPCS: 90471; 90656; 99212 ==

== ENCOUNTER 2024-01-18 12:18 | Outpatient (AMB) | payer MEDICARE, MEDICAID, SELFPAY ==
[2024-01-18 12:48] VITALS: BP 132/80; PULSE 98; O2SAT 97
--- NOTE | 2024-01-18 12:48 | A.OFFPC_ITS ---
Vital Signs 3 01/18/24 12:48 Height 6 ft 1 in BMI Reason not done Patient refused/unable BP 132/80 Blood Pressure Location Lt brachial Position Sitting Pulse 98 Pulse Source Pulse Oximeter Pulse Oximetry (%) 97 Oxygen Delivery Method Room Air Intake Visit Reasons: [facility] 12/15 nausea Intake Note: Patient is here to follow-up after a visit the emergency department at [facility] ED on 12/16/23 for bruising to the right bicep. 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 Accompanied by: program Allergies clozapine Allergy (Unknown, Verified 01/18/24 13:10) Unknown Medication List - Last Reconciled 01/18/24 by Michi Hsieh PA-C acetaminophen (Tylenol Extra Strength) 1,000 mg (2 x 500 mg) PO Q6H PRN 5 days amlodipine 5 mg PO DAILY 90 days artifi.tears(hypromellose)(PF) 0.3% 1 drp ophthalmic (eye) DAILY PRN 30 days benzonatate 100 mg PO .q8hr PRN bisacodyl 10 mg (2 x 5 mg) PO DAILY [Blood pressure cuff As directed] cholecalciferol (vitamin D3) 1,250 mcg PO .QMONTH citalopram 40 mg PO DAILY clonidine HCl 0.1 mg PO DAILY PRN dextromethorphan-guaifenesin 5-100 mg/5 mL (Robitussin Cough-Chest Congestion DM) 10 mL PO Q6H PRN 30 days dicyclomine 20 mg PO BEDTIME diphenhydramine HCl (Benadryl) 25 mg PO BEDTIME 90 days disposable gloves (Nitrile Exam Gloves) As directed disposable gloves (Biobrane Gloves Large) As directed docusate sodium (Colace) 100 mg PO BID 90 days facial-body wipes As directed incontinence pad, liner, disp As directed Lactobacillus rhamnosus GG (Culturelle) 1 cap PO DAILY 90 days levothyroxine 75 mcg PO DAILY linaclotide (Linzess) 290 mcg PO QAM lisinopril 5 mg PO DAILY loperamide (Imodium A-D) 2 mg PO Q4H PRN lorazepam 1 mg PO DAILY magnesium hydroxide (Milk Of Magnesia Concentrated) 30 mL PO DAILY PRN 30 days melatonin 10 mg PO BEDTIME nitrofurantoin macrocrystal 50 mg PO BEDTIME 90 days olanzapine (Zyprexa) 20 mg PO DAILY omeprazole 20 mg PO .twice a day 30 days trazodone 100 mg PO BEDTIME Tobacco use date assessed: 05/04/23 Fall risk assessment: No Falls in past year Last assessed Fall Risk: 01/18/24 Dental Screening Dental Screen Date: 05/04/23 HPI [facility] 11 nausea 2 HPI0 Details Patient is a 73-year-old male here today for follow-up ER visit. Was seen at the ER on 12/16/2023 for acute right arm bruising. snf staff was concerned for the bruise on his right biceps. During the ER stay he underwent an x-ray and an ultrasound which did not show fracture or DVT. His blood work did not show any significant anemia. Likely cause of the bruising is being manually transferred in and out of bed. Likely grabbing the upper arm and axillary region causing minor trauma. Advised svp group director to use gait belt as much as possible [facility] Medical History Annual physical exam Colon cancer screening Recurrent UTI HTN (hypertension) Physical exam Acute diarrhea Hypokalemia Decubitus ulcer of coccyx Hospital discharge follow-up Elevated AFP Hepatitis B core antibody positive Claudia onychomycosis Aortic aneurysm, abdominal ETOH abuse Pernicious anemia Intentional self-harm by jumping from a high place, sequela History of femur fracture Spinal cord injury Fracture of lumbar spine with cord lesion Incontinence of feces Essential (primary) hypertension Hepatitis C Schizophrenia, unspecified Surgical History History of esophagogastroduodenoscopy (EGD) Hx of colonoscopy S/P total hip arthroplasty Social History Housing: Assisted Living Facility Alcohol intake: never Patient Tobacco Use Status: Never used Tobacco e-Cigarette/Vaping Use: Never Used Second Hand Smoke Exposure: No service: No Current occupational status: disabled Cognitive needs: Yes (wheelchair) Hearing needs: No Vision needs: No Questionnaire Thrive Questionnaire Date Thrive assessed: 11/03/23 FROILAN-7 AMB Questionnaire FROILAN-7 Date FROILAN - 7 assessed: 11/03/23 Source: Developed by Drs. Dat L. BarbaraKylah menendez, Francis Melendez and colleagues, with an educational jethro from [employer]. Review of Systems Const Denies headache(s) Eyes Denies loss of vision ENT Denies vertigo, Denies dizziness, Denies headache(s) and Denies sore throat Card Denies chest pain, Denies leg edema and Denies lightheadedness Resp Denies cough, Denies hemoptysis and Denies wheezing GI Denies abdominal pain, Denies melena, Denies constipation, Denies diarrhea and Denies vomiting Denies dysuria, Denies urinary frequency and Denies urinary urgency Musc Denies arthralgias, Denies joint swelling, Denies numbness and Denies tingling Neuro Denies Abnormal speech present, Denies behavioral changes, Denies vertigo, Denies dizziness, Denies headache(s), Denies loss of vision, Denies memory loss, Denies numbness and Denies tingling Psych Denies anxiety, Denies behavioral changes, Denies depression, Denies memory loss and Denies panic attacks Zhen/Lymph Denies easy bleeding and Denies easy bruising Aller/Immun Denies wheezing Physical exam (Primary Care) Vital Signs: Last Vital Signs Pulse 98 01/18/24 12:48 BP 132/80 01/18/24 12:48 Pulse Ox 97 01/18/24 12:48 Oxygen Delivery Method Room Air 01/18/24 12:48 Tobacco/Smoking Status: Tobacco use Status Tobacco use date assessed 05/04/23 01/18/24 12:50 Patient Tobacco Use Status Never used Tobacco 01/18/24 12:50 e-Cigarette/Vaping Use Never Used 01/18/24 12:50 Thrive Assessment: Date of Thrive Assessment Date Thrive assessed 11/03/23 01/18/24 12:50 Const General: healthy appearing, no acute distress, alert and awake Nutritional Appearance: well nourished Orientation/consciousness: oriented to person, oriented to place and oriented to time HENMT Ears: TM's normal bilaterally General nose exam: Normal nasal mucous membranes and turbinates present Eyes Conjunctivae: conjunctivae normal Sclerae: sclerae normal Pupils: Equal, round and reactive pupils present Neck Neck: Yes no lymphadenopathy and Yes no JVD Thyroid: Thyroid normal Carotids: no bruits Resp Effort & Inspection: normal respiratory effort and not tachypneic Auscultation: no crackles, no rales, no rhonchi and no wheezes Cardio Rate: regular rate Rhythm: regular rhythm Heart sounds: no murmurs and normal S1 and S2 GI Palpation (GI): Soft to palpation, nontender, no hepatomegaly and no splenomegaly Auscultation: normal bowel sounds Skin General skin exam: no rashes or lesions noted and dry skin Full body images: 2 1. SMALL AMOUNT OF FADING ECCHYMOSIS NOTED IN THE UPPER EXTREMITY AND AXILLARY REGION. Neuro General: oriented to person, oriented to place and oriented to time Cranial nerves: Yes Equal, round and reactive pupils present Speech: No Abnormal speech present Gait exam (Neuro): Normal gait present Motor exam (neuro): no tremor noted Extrem Right upper extremity: full ROM Left upper extremity: full ROM Right lower extremity: full ROM; no edema Left lower extremity: full ROM; no edema Psych Mental Status: mental status grossly normal Speech and movement: Normal speech and movement present Affect: normal affect Attitude: cooperative Thought process: Normal thought process present Coding Level of Care Code Est Pt Level 3 (08048) Diagnoses Ecchymosis R58 Assessment & Plan Assessment & Plan (1) Ecchymosis: Code(s): R58 - Hemorrhage, not elsewhere classified Category: Medical Plan: As per HPI ecchymosis likely secondary to minor trauma secondary to getting transferred in and out of bed with full assistance at the correction. Medications: Refilled 2 amlodipine 5 mg PO DAILY 90 days 90 tabs 1RF I10 - Essential (primary) hypertension cholecalciferol (vitamin D3) 1,250 mcg PO .QMONTH 12 caps 3RF I10 - Essential (primary) hypertension omeprazole 20 mg PO .twice a day 30 days 60 caps 2RF K29.81 - Duodenitis with bleeding levothyroxine take 1 hour before food or meds in the morning 75 mcg PO DAILY 90 tabs 2RF E03.9 - Hypothyroidism, unspecified
== END 2024-01-18 14:24 | disposition home or self-care (01) ==
PROVIDERS: PCP Physician Assistant; Visit Provider Physician Assistant
DX: R58 Hemorrhage, not elsewhere classified (principal)

== ENCOUNTER → 2024-01-18 12:18 | Outpatient (BNVA) | payer MEDICARE, MEDICAID, SELFPAY | PROVIDERS: PCP Physician Assistant; Visit Provider Physician Assistant | DX: R58 Hemorrhage, not elsewhere classified (principal) | CPT/HCPCS: 99212 ==

== ENCOUNTER 2024-02-04 11:31 | Outpatient (AMB) | payer MEDICARE, MEDICAID, SELFPAY ==
[2024-02-04 11:34] VITALS: BP 110/70; PULSE 78; O2SAT 97
--- NOTE | 2024-02-04 11:34 | A.OFFPC_ITS ---
Vital Signs 02/04/24 11:34 Height 1 in BP 110/70 Blood Pressure Location Lt brachial Position Sitting Pulse 78 Pulse Source Pulse Oximeter Pulse Oximetry (%) 97 Oxygen Delivery Method Room Air Intake Visit Reasons: Follow-up hypothyroidism/ hypertension Allergies clozapine Allergy (Unknown, Verified 01/18/24 13:10) Unknown Tobacco use date assessed: 05/04/23 Dental Screening Dental Screen Date: 05/04/23 HPI Follow-up hypothyroidism/ hypertension HPI Details Patient is a 73-year-old male here today for follow-up visit. Patient has a past medical history significant for schizophrenia, wheelchair dependent , history of alcohol abuse, distant history of AAA, hypothyroidism, hypertension. CHRONIC MEDICAL CONDITIONS--> .. Chronic constipation: Continues to follow GI specialist and has been using Otilia zess with good effect. CKD stage 3: Noted most recent creatinine at 1.8. advised staff to keep him well hydrated. Will continue to follow creatinine. .. Hypertension: Blood pressure acceptable today in office. He reports he denies any chest pain, shortness of breath, blurry vision. Is now off blood pressure medication due to having low blood pressures in the past. . Hypothyroidism: Most recent TSH normal. Will continue current dose of levothyroxine. Will continue to follow TSH .. Schizophrenia: Has establish care with psychiatrist Dr. Escalona whom was now managing his his mental health medications --> he does report having some trouble s leeping on lichen new medication to help him sleep. . Hepatitis-C: Being followed by gastroenterology and is hepatitis C has been treated .. Spinal cord injury: Continues to be wheelchair bound secondary to his spinal cord injury. It is unclear what has caused this though group members from the home report he had had a suicide attempt which caused him to be paralyzed.. Patient is also incontinent of urine and stool. longterm requesting scripts for gloves, see any wipes and incontinent pads He does use Pal lift for transfers [facility] Medical History Annual physical exam Colon cancer screening Recurrent UTI HTN (hypertension) Physical exam Acute diarrhea Hypokalemia Decubitus ulcer of coccyx Hospital discharge follow-up Elevated AFP Hepatitis B core antibody positive Claudia onychomycosis Aortic aneurysm, abdominal ETOH abuse Pernicious anemia Intentional self-harm by jumping from a high place, sequela History of femur fracture Spinal cord injury Fracture of lumbar spine with cord lesion Incontinence of feces Essential (primary) hypertension Hepatitis C Schizophrenia, unspecified Surgical History History of esophagogastroduodenoscopy (EGD) Hx of colonoscopy S/P total hip arthroplasty Social History Housing: Assisted Living Facility Alcohol intake: never Patient Tobacco Use Status: Never used Tobacco e-Cigarette/Vaping Use: Never Used Second Hand Smoke Exposure: No service: No Current occupational status: disabled Cognitive needs: Yes (wheelchair) Hearing needs: No Vision needs: No Questionnaire Thrive Questionnaire Date Thrive assessed: 11/03/23 FROILAN-7 AMB Questionnaire FROILAN-7 Date FROILAN - 7 assessed: 11/03/23 Source: Developed by Drs. Dat Jimenez, Kylah Edmondson, Francis Melendez and colleagues, with an educational jethro from [employer]. Review of Systems Const Denies headache(s) Eyes Denies loss of vision ENT Denies vertigo, Denies dizziness, Denies headache(s) and Denies sore throat Card Denies chest pain, Denies leg edema and Denies lightheadedness Resp Denies cough, Denies hemoptysis and Denies wheezing GI Denies abdominal pain, Denies melena, Denies constipation, Denies diarrhea and Denies vomiting Denies dysuria, Denies urinary frequency and Denies urinary urgency Musc Denies arthralgias, Denies joint swelling, Denies numbness and Denies tingling Neuro Denies Abnormal speech present, Denies behavioral changes, Denies vertigo, Denies dizziness, Denies headache(s), Denies loss of vision, Denies memory loss, Denies numbness and Denies tingling Psych Denies anxiety, Denies behavioral changes, Denies depression, Denies memory loss and Denies panic attacks Zhen/Lymph Denies easy bleeding and Denies easy bruising Aller/Immun Denies wheezing Physical exam (Primary Care) Vital Signs: Last Vital Signs Pulse 78 02/04/24 11:34 BP 110/70 02/04/24 11:34 Pulse Ox 97 02/04/24 11:34 Oxygen Delivery Method Room Air 02/04/24 11:34 Tobacco/Smoking Status: Tobacco use Status Tobacco use date assessed 05/04/23 02/04/24 11:34 Patient Tobacco Use Status Never used Tobacco 02/04/24 11:34 e-Cigarette/Vaping Use Never Used 02/04/24 11:34 Thrive Assessment: Date of Thrive Assessment Date Thrive assessed 11/03/23 02/04/24 11:34 Const General: healthy appearing, no acute distress, alert and awake Nutritional Appearance: well nourished Orientation/consciousness: oriented to person, oriented to place and oriented to time HENMT Ears: TM's normal bilaterally General nose exam: Normal nasal mucous membranes and turbinates present Eyes Conjunctivae: conjunctivae normal Sclerae: sclerae normal Pupils: Equal, round and reactive pupils present Neck Neck: Yes no lymphadenopathy and Yes no JVD Thyroid: Thyroid normal Carotids: no bruits Resp Effort & Inspection: normal respiratory effort and not tachypneic Auscultation: no crackles, no rales, no rhonchi and no wheezes Cardio Rate: regular rate Rhythm: regular rhythm Heart sounds: no murmurs and normal S1 and S2 GI Palpation (GI): Soft to palpation, nontender, no hepatomegaly and no splenomegaly Auscultation: normal bowel sounds Skin General skin exam: no rashes or lesions noted and dry skin Neuro General: oriented to person, oriented to place and oriented to time Cranial nerves: Yes Equal, round and reactive pupils present Speech: No Abnormal speech present Gait exam (Neuro): Normal gait present Motor exam (neuro): no tremor noted Extrem Right upper extremity: full ROM Left upper extremity: full ROM Right lower extremity: full ROM; no edema Left lower extremity: full ROM; no edema Psych Mental Status: mental status grossly normal Speech and movement: Normal speech and movement present Affect: normal affect Attitude: cooperative Thought process: Normal thought process present Coding Level of Care Code Est Pt Level 3 (49261) Diagnoses Essential (primary) hypertension I10 Hypothyroidism, unspecified type E03.9 Hypothyroidism type: unspecified High cholesterol E78.00 Schizophrenia, unspecified type F20.9 Schizophrenia type: unspecified Assessment & Plan Assessment & Plan (1) Essential (primary) hypertension: Code(s): I10 - Essential (primary) hypertension Category: Medical Plan: Patient's blood pressure acceptable today in office. Will continue on his current dose of antihypertensive medication with goal blood pressure to remain below 140/90 (2) Hypothyroidism: Code(s): E03.9 - Hypothyroidism, unspecified Category: Medical Qualifiers: Hypothyroidism type: unspecified Qualified Code(s): E03.9 - Hypothyroidism, unspecified Plan: Patient continues levothyroxine 75 mcg. Advised to get labs done before upcoming appointment to ensure normal TSH (3) High cholesterol: Code(s): E78.00 - Pure hypercholesterolemia, unspecified Category: Medical Plan: Patient has a history of borderline high total cholesterol. Will check a fasting lipid panel to ensure stable cholesterol and LDL. (4) Schizophrenia, unspecified: Code(s): F20.9 - Schizophrenia, unspecified Category: Medical Qualifiers: Schizophrenia type: unspecified Qualified Code(s): F20.9 - Schizophrenia, unspecified Plan: Patient continues to follow psychiatry for his schizophrenia and anxiety disorder. He does mention having panic attacks from time to time.
== END 2024-02-04 12:43 | disposition home or self-care (01) ==
PROVIDERS: PCP Physician Assistant; Visit Provider Physician Assistant
DX: I10 Essential (primary) hypertension (principal); E03.9 Hypothyroidism, unspecified; E78.00 Pure hypercholesterolemia, unspecified; F20.9 Schizophrenia, unspecified

== ENCOUNTER → 2024-02-04 11:31 | Outpatient (BNVA) | payer MEDICARE, MEDICAID, SELFPAY | PROVIDERS: PCP Physician Assistant; Visit Provider Physician Assistant | DX: I10 Essential (primary) hypertension (principal); E03.9 Hypothyroidism, unspecified; E78.00 Pure hypercholesterolemia, unspecified; F20.9 Schizophrenia, unspecified | CPT/HCPCS: 99212 ==

== ENCOUNTER → 2024-02-29 14:30 | Outpatient (BNV) | payer MEDICARE, MEDICAID, SELFPAY | PROVIDERS: Visit Provider Physician Assistant Surgical | DX: R13.10 Dysphagia, unspecified (principal) | CPT/HCPCS: 74230 ==

== ENCOUNTER 2024-02-29 14:34 | Outpatient (REF) | payer MEDICARE, MEDICAID, SELFPAY ==
--- NOTE | ~2024-02-29 | FL_ITS ---
EXAMINATION: Modified Barium Swallow CLINICAL INFORMATION: Dysphagia COMPARISON: None TECHNIQUE: Modified barium swallow was performed under lateral fluoroscopy with patient in standing position. Barium mixed with solids and liquids of different consistencies was administered by the speech pathologist. Examination was recorded in the fluoroscopy suite. FINDINGS: Trace laryngeal penetration was seen with multiple consistencies of barium. No aspiration was observed. Anterior bridging osteophytes at C3-C5 are noted, however, they do appear to be causing any significant compression of the hypopharynx or cervical esophagus. FLUOROSCOPY TIME: 1 minute 45 seconds Number of Spot Images: N/A DOSE AREA PRODUCT: 1314 uGy-m2 (microgray-meter squared) FL/FL Modified Barium Swallow IMPRESSION: 1. Trace laryngeal penetration is seen with multiple consistencies of liquid barium. No aspiration was observed. 2. Anterior bridging osteophytes at C3-C5 are present, however, they do not appear to be causing any significant posterior compression of the hypopharynx or cervical esophagus. Refer to the speech therapy report for further clarification This procedure was performed by Kvng Mclain PA-C, and supervised by Dr. Mchugh Electronically signed by: Parviz Mchugh MD 03/01/2024 09:12 AM [facility]
--- NOTE | 2024-03-02 15:54 | MHC.SL.IMP ---
Date of Plan of Treatment: 02/29/24 Onset of Symptoms/Illness: 11/26/23 Date Treatment Started: 02/29/24 Admitting Diagnosis: Dysphagia Primary Speech & Language Diagnosis: R13.12 Oropharyngeal Phase Dysphagia Reason for Today's Visit: 87837 Modified Barium Swallow Study Pre-evaluation Dietary Consistencies: Soft Foods Pre-evaluation Liquid Consistency: Thin Pre-evaluation Medication Administration: UNK Medical History: Modified Barium Swallow Study Fluoroscopic Evaluation of Swallowing Function CPT Code 09667 Evaluation Year: 2024 Reason for Study: Difficulty swallowing Referring Physician: Michi Hsieh PA-C Evaluating Clinician: Tatyana Rogers MA, CCC-SENIOR STRATEGY MANAGER Study Number: 1 Patient Name: Florin Wagner Status: Outpatient, Wheelchair Age: 73 Gender: Male Medical History Medical History Annual physical exam Colon cancer screening Recurrent UTI HTN (hypertension) Physical exam Acute diarrhea Hypokalemia Decubitus ulcer of coccyx Hospital discharge follow-up Elevated AFP Hepatitis B core antibody positive Claudia onychomycosis Aortic aneurysm, abdominal ETOH abuse Pernicious anemia Intentional self-harm by jumping from a high place, sequela History of femur fracture Spinal cord injury Fracture of lumbar spine with cord lesion Incontinence of feces Essential (primary) hypertension Hepatitis C Schizophrenia, unspecified Surgical History History of esophagogastroduodenoscopy (EGD) Hx of colonoscopy S/P total hip arthroplasty Current (pre-evaluation) Intake/Diet: Route: PO Diet Grade: Soft/blended or ground up solids Liquid Consistencies: Thin Pre-Study Functional Oral Intake Scale (FOIS): 5- Total oral intake of multiple consistencies requiring special preparation Pain: None reported at time of study SUBJECTIVE: Patient is a 73 year old male with past medical history significant for spinal cord injury, schizophrenia, hypothyroidism, and hypertension. Notably, patient is followed by [facility] for chronic constipation. Patient was referred for a modified barium swallow study (MBSS) by Michi Hsieh PA-C from [facility] in [place] to assess swallow function and aspiration risk due to reports of paitent having coughing episodes sometimes while eating. He arrived in a wheelchair, accompanied by a staff member from his [facility]. This staff member reports he started working at the home a few months ago and has observed patient coughing after meals for the entire duration he has worked there. Patient reportedly eats a soft diet and thin liquids. Patient is edentulous and does not have dentures. Patient reported, ?I eat with my gums.? Oral Motor Exam Mouth Occlusion: Normal Oral-Facial Teeth Characteristics: Edentulous Oral-Facial Teeth Miscellaneous Observation: No dentures Oral-Facial Smile (Lips) Description: Normal Tongue Size: Normal Tongue Excursion Description: Normal Tongue Range of Movement Description: Reduced Tongue Speed of Movement Description: Normal Tongue Strength of Movement (against opposing pressure): Reduced Tongue Movement Characteristics: Normal/Absent Tongue Movement Miscellaneous Observation: Somewhat weak volitional cough Food and Liquid Trials: Oral Impairment: Lip Closure: 0=No labial escape Oral Impairment: Tongue Control During Bolus Hold: Did not test Oral Impairment: Bolus Preparation/Mastication: Did not test Oral Impairment: Bolus Transport/Lingual Motion: 3=Repetitive/disorganized tongue motion Oral Impairment: Oral Residue: 2=Residue collection on oral structures Oral Impairment:Initiation of Pharyngeal Swallow: 3=Bolus head in pyriforms Pharyngeal Impairment: Soft Palate Elevation: 0=No bolus between soft palate (SP)/pharyngeal wall (PW) Pharyngeal Impairment: Laryngeal Elevation: 1=Partial thyroid cartilage/arytenoids to epiglottic petiole movement Pharyngeal Impairment: Anterior Hyoid Excursion: 2=No anterior movement Pharyngeal Impairment: Epiglottic Movement: 1=Partial inversion Pharyngeal Impairment: Laryngeal Vestibular Closure:: 1=Incomplete: narrow column air/contrast in laryngeal vestibule Pharyngeal Impairment: Pharyngeal Stripping Wave: 1=Present: diminished Pharyngeal Impairment: Pharyngeal Contraction: Did not test Pharyngeal Impairment: Pharyngoesophageal Segment Openin=Partial distention/partial duration: partial obstruction of flow Pharyngeal Impairment: Tongue Base (TB) Retraction: 1=Trace column of contrast/air between TB and posterior PW Pharyngeal Impairment: Pharyngeal Residue: 2=Collection of residue within or on pharyngeal structures Pharyngeal Impairment: Esophageal Clearance Upright Position: Did not test Impressions and Recommendations OBJECTIVE: Time-out: performed at 15:00 Evaluation Start: 14:30; Stop: 14:35 Patient Positioning: Seated 70-90 degrees Viewing Planes: LATERAL ONLY Contrast: MBSImP? Standardized Protocol using commercially prepared, standardized Barium viscosities, including: Varibar? THIN LIQUID (40% w/v, <15 cps) , Varibar? NECTAR (40% w/v, <150-450 cps) , Varibar? THIN HONEY (40% w/v, <800-1800 cps) , Varibar? PUDDING (40% w/v, <0602-0591 cps) , 1/2 Shortbread Cookie (1 x1 x.25 ) [facility] [place] [id number] Results: Lip closure for intraoral bolus containment resulted in no labial escape. Tongue control during bolus hold could not be assessed due to logistical reasons not related to physiologic impairment. Bolus preparation and mastication received the highest impairment score; solid not given due to patient safety concerns related to oral impairment. Bolus transport/lingual motion was with repetitive/disorganized motion of the tongue. Oral residue was a collection on oral structures. Initiation of the pharyngeal swallow occurred when the bolus head was in the pyriform sinuses. Soft palate elevation resulted in no bolus between the soft palate and the pharyngeal wall. Laryngeal elevation was decreased, with partial superior movement of the thyroid cartilage/partial approximation of the arytenoids to the epiglottic petiole. Anterior hyoid excursion demonstrated no movement. Epiglottic movement resulted in partial inversion. Laryngeal vestibular closure was incomplete, with a narrow column of air/contrast noted within the laryngeal vestibule at the height of the swallow. Pharyngeal stripping wave was present, but diminished. Pharyngeal contraction could not be determined due to logistical reasons not related to physiologic impairment. Pharyngoesophageal segment opening demonstrated partial distension/partial duration, with partial obstruction of bolus flow. Tongue base retraction allowed a trace column of contrast or air between the retracted tongue base and the posterior pharyngeal wall. Pharyngeal residue was a collection of residue within or on pharyngeal structures. Esophageal clearance in the upright position could not be assessed due to logistical reasons not related to physiologic impairment. Oral Impairment Score: 11 (absence of score, component 2) Pharyngeal Impairment Score: 9 (absence of score, component 13) Esophageal Impairment Score: --- (absence of score, component 17) Laryngeal Penetration and Aspiration: Neither penetration nor aspiration was observed in today's study with Puree, Ground, Honey-thick. Penetration was observed in today's study. Snook-thick, Thin Contrast entered the airway, remained above the vocal folds, and were not ejected from the airway. ASSESSMENT: This exam was conducted by the radiologist and the speech pathologist. Patient was sitting for lateral view only. He trialed thin (individual and sequential sips via cup and straw), nectar thick (individual sips via cup), honey thick (individual sips via cup), puree, and ground consistencies. Oral phase was characterized by slowed lingual movements and repetitive tongue rocking. There was trace lingual residue on trials of puree. Mild to moderate residue on the tongue, palate, and in the floor of mouth with trials of thin, nectar thick, honey thick, and ground textures. Residue was mostly cleared with dry swallows. Pharyngeal swallow trigger was delayed, initiated as the bolus head reached the pyriforms. No evidence of nasopharyngeal reflux. Partial laryngeal elevation with partial epiglottic inversion and incomplete laryngeal vestibular closure. Trace penetration above the vocal folds with trials of thin and nectar thick, reduced mostly with subsequent swallows. Less penetration seen when patient took smaller sips and/or drank from the cup rather than the straw. No evidence of subsequent aspiration. Mild to moderate retention, mostly in the valleculae, some residue collection on the posterior pharyngeal wall and pyriform sinuses. Pharyngeal residue was reduced with dry swallows. Partial distention through the pharyngoesophageal segment opening. Radiologist noted, ?Anterior bridging osteophytes at C3-C5 are noted, however, they do appear to be causing any significant compression of the hypopharynx or cervical esophagus.? Liquid Intake Recommendation: Thin Liquid Intake Strategies: Small Sips, No Straws, Double Swallow Dietary Recommendations: Grnd/Mech Altered (NDD2) Medication Administration: Please contact the pharmacy regarding appropriate crushable or liquid drug formulations that are available whenever modified delivery is recommended. Compensatory Strategies Recommended: Sitting Upright (90 deg), Double Swallow, No Straw, Liquids from Cup, Liquids from Spoon, Small Bites and Sips, Alternate Liquids/Solids, Rate of Ingestion Change, Oral Check, Avoid Specific Foods Supervision during eating and or drinking: Total Supervision (1:1) Recommended Treatments: Compens. Strategy Educat. Recommendation for Speech Therapy: Speech Therapy through [facility]/Speech Therapy through Rehab Facility Text Comment: Intake Recommendations: Route: PO Diet Grade: Mechanical Soft Liquid Consistencies: Thin Post-Study Functional Oral Intake Scale (FOIS): 5- Total oral intake of multiple consistencies requiring special preparation Mild to moderate residue seen in the oral and pharyngeal cavities, which mostly cleared with dry swallows. Trace penetration seen with thin and nectar thick consistencies. No evidence of aspiration. Therapy Recommendations: Recommend continue with softer foods per the National Dysphagia Diet Level II Ground/Mechanically Soft guidelines and Thin Liquids, pills Whole or Crushed per patient?s tolerance. The following strategies are recommended to maximize safety: -take small bites -take one bite at a time, ensure oral cavity is clear before taking next bite -dry swallow after each bite -alternate bites of food with sips of liquid -take one small sip of liquid at a time via teaspoon or cup -avoid the use of straws -avoid sequential sips or ?chugging? liquids -dry swallow after taking a sip -ensure upright 90 degree position during PO intake and for at least 30 minutes afterwards -avoid foods which are dry, crunchy, tough or hard to chew Recommend continued dysphagia treatment in the [facility] for PO trials and training of compensatory strategies. Pin Pusher Goals: ? The patient will tolerate the least restrictive diet with a safe/efficient swallow to maintain adequate nutrition and hydration. ? The patient and/or family will participate in further education for swallowing goals. Short Term Goals: ? Diet - The patient will tolerate a mechanical soft diet with thin liquids without signs or symptoms of penetration/aspiration 100% of the time. - The patient will participate in therapeutic PO trials with the SENIOR STRATEGY MANAGER. ? Guidelines - The patient will comply with/recall the following guidelines/strategies 100% of the time with minimal cuing: Bolus Volume Change, Rate of Ingestion Change, Additional Swallow(s) per Bolus, No Straws. ? Education - The patient, family, caregiver, nurse will verbalize/demonstrate understanding of the results of this evaluation, the above recommendations, and the swallowing guidelines. Frequency/Duration: Date Range for Service Requested: Timeline to reassess: PRN Clinician - Supplemental, Miscellaneous Communication: It is important to note MBSS objective studies are snapshots in time and Patient function might vary with factors such as time of day or concomitant medical conditions. For this reason, the final treatment plan for this patient should rest with their medical care team. Additional recommendations should be considered with the totality of the Patient in mind. Thank for the opportunity to participate in the care of this patient. If you have any questions about the content of this report, please contact the [facility] at [facility]. Education: Education regarding findings from today's study and plans for therapy were provided to Patient and family/caregiver through Verbal Instruction. Understanding was expressed by the Patient and family/caregiver. Labor Relations Representative Clinician/Clinical Fellow: No Supervisory Statement: N/A Speech Language Pathologist: Tatyana Rogers M.A., CCC-SENIOR STRATEGY MANAGER
== END 2024-02-29 14:35 | disposition home or self-care (01) ==
LOC: HO.XRAY 14:34
PROVIDERS: Visit Provider Physician Assistant
DX: R13.12 Dysphagia, oropharyngeal phase (principal)
CPT/HCPCS: 74230; 92611

== ENCOUNTER 2024-03-29 13:00 | Outpatient (AMB) | payer MEDICARE, MEDICAID, SELFPAY ==
--- NOTE | 2024-03-29 13:11 | A.OFFVIS_ITS ---
Intake Visit Reasons: BPH/Recurrent UTI/Incontinence Intake Note: New Patient presents for initial visit for incontinence and reurrent uti Urology Medications: none Blood Thinner: none PVR: 92ml's [place] Required: No Accompanied by: Self / Same As Patient Allergies clozapine Allergy (Unknown, Verified 03/29/24 13:45) Unknown HPI Comments Details: Florin is a pleasant male. He has resident of a long term. He is seen for the following urologic conditions - recurrent UTI - functional incontinence History of TBI Chronic idiopathic constipation Recurrent UTI PVR today 90 cc Has functional incontinence and wears a diaper Unsensed voiding On daily nitrofurantoin for suppression Trial tamsulosin to help with bladder emptying Stress proper bowel control - on culturelle Initiate tamsulosin [facility] Medical History Annual physical exam Colon cancer screening Recurrent UTI HTN (hypertension) Physical exam Acute diarrhea Hypokalemia Decubitus ulcer of coccyx Hospital discharge follow-up Elevated AFP Hepatitis B core antibody positive Claudia onychomycosis Aortic aneurysm, abdominal ETOH abuse Pernicious anemia Intentional self-harm by jumping from a high place, sequela History of femur fracture Spinal cord injury Fracture of lumbar spine with cord lesion Incontinence of feces Essential (primary) hypertension Hepatitis C Schizophrenia, unspecified Surgical History History of esophagogastroduodenoscopy (EGD) Hx of colonoscopy S/P total hip arthroplasty Social History Housing: Assisted Living Facility Alcohol intake: never Patient Tobacco Use Status: Never used Tobacco e-Cigarette/Vaping Use: Never Used Second Hand Smoke Exposure: No service: No Current occupational status: disabled Cognitive needs: Yes (wheelchair) Hearing needs: No Vision needs: No Review of Systems Const Denies chills and Denies fever(s) Card Reports no additional complaints and Denies syncope Resp Denies cough GI Denies abdominal pain and Denies heartburn Reports as per HPI and Denies change in libido Neuro Denies syncope Psych Denies change in libido Endo Denies change in libido Physical Exam Const General: cooperative, healthy appearing, comfortable and no acute distress Orientation/consciousness: patient oriented x3 HEENT Face and sinus: Yes normal facial exam Mouth: moist mucous membranes Neck Neck: Yes normal visual inspection, Yes full ROM and Yes trachea midline Chest Chest palpation & inspection: normal inspection of the chest Resp Effort & Inspection: normal respiratory effort, able to speak in complete sentences and no respiratory distress GI Inspection: Yes normal to inspection Back/Spine/Pelvis Cervical Spine: normal cervical lordosis Thoracic/Lumbar Spine: thoracic and lumbar spine normal to inspection Skin General skin exam: no rashes or lesions noted Neuro General: patient oriented x3, gait normal, tone normal and moves all extremities Extrem General: Yes normal to inspection and Yes capillary refill normal Office Procedures Post Void Residual Post Residual Void Post Void Residual (PVR): 92 [id number] Void Residual by ultrasound Assessment & Plan Assessment & Plan (1) Functional urinary incontinence: Code(s): R39.81 - Functional urinary incontinence Category: Medical (2) BPH (benign prostatic hyperplasia): Code(s): N40.0 - Benign prostatic hyperplasia without lower urinary tract symptoms Category: Medical (3) Recurrent UTI: Code(s): N39.0 - Urinary tract infection, site not specified Category: Medical Plan Work on bowel control Start tamsulosin Orders: Orders AMB Post Void Residual by ultrasound Today N39.0 - Urinary tract infection, site not specified Medications: New tamsulosin 0.4 mg PO BEDTIME 90 days 90 caps 1RF N13.8 - Other obstructive and reflux uropathy, N40.1 - Benign prostatic hyperplasia with lower urinary tract symptoms, R39.81 - Functional urinary incontinence Patient Instructions: This note is constructed using voice recognition software. 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 Imaging studies, laboratory and physical exam results were discussed and reviewed in detail. No major barriers to patient understanding were identified. An opportunity to ask questions regarding the treatment plan was provided. All questions were answered. The patient expressed understanding and agreement with the above treatment plan. The patient is aware they should contact our office by phone for worsening of their current condition or the appearance of new urologic symptoms. Compliance is encouraged with any medications and followup testing that is ordered. It is a privilege to participate in the urologic care of your patient. If you have any questions or concerns regarding treatment for the above conditions, or other urologic issues, please do not hesitate to contact me. The office telephone contact is [phone]. Sincerely, Dr Avery Stacy MD, [facility] - Urology Compassionate Specialist Care for the Genitourinary System Coding Level of Care Code New Pt Level 4 (41577) Complex EM visit Add On G2211 Diagnoses Functional urinary incontinence R39.81 BPH (benign prostatic hyperplasia) N40.0 Recurrent UTI N39.0 CPT Codes Post Residual Void - PVR CPT Code: 42309-Poay Void Residual by ultrasound ([id number])
--- OUTSIDE RECORDS SUMMARY | 2024-03-29 13:53 | XMS_ITS | Clinical Summary ---
Author Organization [address] [facility] Address [address] [place] [address] Phone Care Team Providers Care Industrial Therapist Name Role Phone Michi Hsieh Primary Care Provider Allergies Active Allergy Reactions Criticality Noted Date Comments Clozapine 05/23/2021 Medications dext 70/polycarbophi l/peg/NaCl (ARTIFICIAL TEARS SOLUTION OPHT) Administer into affected eye(s). Active acetaminophen (TYLENOL 8 HOUR) 650 mg 8 hr tablet Take 1 tablet (650 mg total) by mouth every 8 (eight) hours if needed. Active amLODIPine-ator vastatin (CADUET) 10-10 mg per tablet Take 1 tablet by mouth 1 (one) time each day. Active aspirin 81 mg EC tablet Take 1 tablet (81 mg total) by mouth 1 (one) time each day. Active cholecalciferol (Dialyvite Vitamin D3 Max) 1,250 mcg (50,000 unit) tablet Take by mouth. Activ e citalopram (CeleXA) 10 mg tablet Take 1 tablet (10 mg total) by mouth 1 (one) time each day. Active citalopram (CeleXA) 20 mg tablet Take 1 tablet (20 mg total) by mouth 1 (one) time each day. Active docusate sodium (COLACE) 100 mg capsule Take 1 capsule (100 mg total) by mouth 2 (two) times a day. Active enalapril (VASOTEC) 5 mg tablet Take 1 tablet (5 mg total) by mouth 1 (one) time each day. Active famotidine (PEPCID) 20 mg tablet Take 1 tablet (20 mg total) by mouth 2 (two) times a day. Active hydrocortisone 1 % lotion Apply topically 2 (two) times a day. Active levothyroxine (SYNTHROID, LEVOTHROID) 75 mcg tablet Take 1 tablet (75 mcg total) by mouth 1 (one) time each day. Active loperamide (IMODIUM A-D) 2 mg tablet Take 1 tablet (2 mg total) by mouth 4 (four) times a day if needed. Active Active Problems Problem Noted Date Diagnosed Date Constipation 05/02/2021 Decubitus ulcer of coccyx 05/02/2021 ETOH abuse 05/02/2021 Hepatitis C antibody test positive 05/02/2021 Hip fracture 05/02/2021 Hypertension 05/02/2021 Hypothyroidism 05/02/2021 Pernicious anemia 05/02/2021 Schizophrenia 05/02/2021 Encounters Date Type Department Care Team Description 01/18/2024 10:30 AM EST Office Visit Orthopedic Surgery [address] [address] Shaheen Phipps DPM Arthritis of both feet (Primary Dx); PVD (peripheral vascular disease) (CMS/HCC); Pain in toes of both feet; Ingrown nail of third toe of right foot; Dermatophytosis, nail from Last 3 Months Medical History Medical History Date Comments Hip fracture (CMS/HCC) 05/02/2021 DX:Hip fr acture (HCC) Schizophrenia (CMS/HCC) 05/02/2021 DX:Schiz ophrenia (HCC) Hypertension 05/02/2021 DX:Hypertension Thyroid condition 05/02/2021 DX:Thyroid con dition Hepatitis C antibody test positive 05/02/2021 DX:Hepatitis C antibody test positive ETOH abuse 05/02/2021 DX:ETOH abuse Decubitus ulcer of coccyx 05/02/2021 DX:Dec ubitus ulcer of coccyx Social History Tobacco Use Types Packs/Day Years Used Date Smoking Tobacco: Never Smokeless Tobacco: Never Alcohol Use Standard Drinks/Week Comments Not Currently 0 (1 standard drink = 0.6 oz pur e alcohol) Sex and Gender Information Value Date Recorded Sex Assigned at Not on file Legal Sex Male 4:42 AM EST Gender Identity Not on file Sexual Orientation Not on file Obstetrics History Last Filed Vital Signs Vital Sign Reading Time Taken Comments Blood Pressure - - Pulse - - Temperature - - Respiratory Rate - - Oxygen Saturation - - Inhaled Oxygen Concentration - - Weight 79.4 kg (175 lb) 01/18/2024 11:04 AM EST Height 185.4 cm (6' 1 ) 10/08/2023 1:11 PM EDT Body Mass Index 23.09 10/08/2023 1:11 PM EDT Plan of Treatment Upcoming Encounters Date Type Department Care Team (Late st Contact Info) Description 04/07/2024 11:00 AM EST Office Visit Orthopedic Surgery - [place] [address] [facility] [address] [place] [id number] Shaheen Phipps, TREVON [address] [facility] [address] [place] [address] Health Maintenance Due Date Last Done Comments Hepatitis A Vaccines (1 of 2 - Risk 2-dose series) 1968 Zoster Vaccines (1 of 2) 06/08/1999 Pneumococcal Vaccine: 50+ Years (2 of 2 - PCV) 07/23/2021 07/23/2020 Cholesterol Screening (Lipid Panel) 01/19/2022 Colorectal Cancer Screening: Colonoscopy 01/19/2022 Depression Screening 01/19/2022 Falls Risk Assessment 01/19/2022 Hepatitis C Screening 01/19/2022 Medicare Annual Wellness Visit 01/19/2022 Social Influencers of Health Screening 01/19/2022 Hypertension/CHF/CAD Annual BMP Blood Test 01/22/2022 COVID-19 Vaccine ( season) 2023 11/21/2020, 03/03/2020, 02/11/2020 RSV Immunization Patients 60+ Years Old (1 - 1-dose 75+ series) 2024 DTaP,Tdap,and Td Vaccines (2 - Td or Tdap) 10/27/2032 10/27/2022 Influenza Vaccine Completed 11/26/2023, , 11/25/2021, Additional history exists HIB Vaccines Aged Out No longer eligi ble based on patient's age to complete this topic HPV Vaccines Aged Out No longer eligi ble based on patient's age to complete this topic Hepatitis B Vaccines Aged Out No long er eligible based on patient's age to complete this topic IPV Vaccines Aged Out No longer eligi ble based on patient's age to complete this topic MMR Vaccines Aged Out No longer eligi ble based on patient's age to complete this topic Meningococcal ACWY Vaccine Aged Out N o longer eligible based on patient's age to complete this topic Meningococcal B Vacine Aged Out No lo nger eligible based on patient's age to complete this topic RSV Immunization Patients Under 20 months Aged Out No longer eligible based on patient's age to complete this topic Varicella Vaccines Aged Out No longer eligible based on patient's age to complete this topic Insurance MEDICARE MEDICAID - [place] Care Teams Industrial Therapist Relationship Specialty Start Date End Date Michi Hsieh PA [address] [place] [address] PCP - General Internal Medicine 04/16/21
--- OUTSIDE RECORDS SUMMARY | 2024-03-29 13:53 | XMS_ITS | Clinical Summary ---
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 Name Role Phone Michi Hsieh Primary Care Provider [phone] Allergies Active Allergy Reactions Criticality Noted Date Comments Clozapine 10/08/2021 Medications Acetaminophen 325 MG capsule Take 10,000 mg by mouth if needed 07/14/2019 Active citalopram (CeleXA) 40 MG tablet Take 40 mg by mouth 04/12/2021 Active levothyroxine (SYNTHROID, LEVOTHROID) 75 MCG tablet Take 75 mcg by mouth 04/12/2021 Active loperamide (IMODIUM A-D) 2 MG tablet Take 2 mg by mouth 12/24/2020 Active traZODone (DESYREL) 50 MG tablet Take 100 mg by mouth every night 04/12/2021 Active OLANZapine (ZyPREXA) 10 MG tablet Take 10 mg by mouth in the morning and 10 mg in the evening. 12/15/2020 Active amLODIPine (NORVASC) 5 MG tablet Take 5 mg by mouth 1 (one) time each day 11/25/2021 Active cloNIDine (CATAPRES) 0.1 MG tablet Take 0.1 mg by mouth 1 (one) time each day if needed 04/11/2022 Active Linzess 290 MCG capsule Take 290 mcg by mouth 1 (one) time each day in the morning 06/13/2022 Active LORazepam (ATIVAN) 1 MG tablet Take 1 mg by mouth 1 (one) time each day in the morning 06/17/2022 Active nitrofurantoin (MACRODANTIN) 50 MG capsule Take 50 mg by mouth every night 06/17/2022 Active BISACODYL PO Take 10 mg by mouth at night if needed Active docusate sodium (COLACE) 100 MG capsule Take 100 mg by mouth in the morning and 100 mg in the evening. Active omeprazole (PriLOSEC) [address] capsule Take 20 mg by mouth in the morning and 20 mg in the evening. 10/08/2022 Active Melatonin 5 MG tablet Take 10 mg by mouth every night 03/19/2023 Active diphenhydrAMINE (BENADRYL) 25 MG capsule Take 25 mg by mouth at night if needed for itching Active Active Problems Problem Noted Date Diagnosed Date Stage 3b chronic kidney disease 10/13/2022 Abdominal aortic aneurysm wi thout rupture, not otherwise specified 10/13/2022 Left ventricular hypertrophy 10/13/2022 Chronic viral hepatitis C 10/08/2021 Gastro-esophageal reflux disease without esophag itis 10/08/2021 Dyslipidemia 10/08/2021 Hypertension 10/08/2021 Hypoglycemia 10/08/2021 Hypothyroidism 10/08/2021 Resolved Problems Problem Noted Date Diagnosed Date Resolved Date Chronic kidney disease 10/08/202110/13 Immunizations Name Administration Dates Next Due Influenza, Unspecified 11/20/2020,01/16/2006 Pfizer SARS-COV-2 11/21/2020,03/03/2020,02/10/19 21 Pneumococcal Polysaccharide 07/23/2020, 6 Social History Tobacco Use Types Packs/Day Years Used Date Smoking Tobacco: Never Tobacco Cessation:Counseling Given: Not Answered Alcohol Use Standard Drinks/Week Comments Not Currently 0 (1 standard drink = 0.6 oz pur e alcohol) Sex and Gender Information Value Date Recorded Sex Assigned at Not on file Legal Sex Male 3:05 PM EDT Gender Identity Not on file Sexual Orientation Not on file Last Filed Vital Signs Vital Sign Reading Time Taken Comments Blood Pressure 145/99 10/26/2023 11:19 AM EDT Pulse 80 10/26/2023 11:19 AM EDT Temperature - - Respiratory Rate - - Oxygen Saturation 94% 10/26/2023 11:19 AM EDT Inhaled Oxygen Concentration - - Weight 82.6 kg (182 lb) 10/26/2023 11:19 AM EDT Height 186.1 cm (6' 1.25 ) 10/26/2023 11:19 AM E DT Body Mass Index 23.85 10/26/2023 11:19 AM EDT Plan of Treatment Upcoming Encounters Date Type Department Care Team (Late st Contact Info) Description 04/24/2024 Orders Only [facility] [address] [address] Brock Gayle MD [address] [address] Stage 3b chronic kidney disease (HCC); Left ventricular hypertrophy; Hypertension; Dyslipidemia; Chronic viral hepatitis C (HCC); Abdominal aortic aneurysm without rupture, not otherwise specified (HCC) 04/27/2024 11:00 AM EDT Office Visit [facility] [address] [address] Brock Gayle MD [address] [address] Health Maintenance Due Date Last Done Comments Colorectal Cancer Screening: Annual FOBT 1998 Colorectal Cancer Screening: Colonoscopy 1998 Colorectal Cancer Screening: Sigmoidoscopy 1998 Pneumococcal Vaccine: 65+ Years (3 of 3 - PCV) 07/23/2021 07/23/2020, 02/27/2005 Influenza Vaccine (#1) 2023 , 01/16/2006 Hepatitis B Vaccine Aged Out No longe r eligible based on patient's age to complete this topic Insurance [place] Care Teams Piped Buttonhole Machine Operator Relationship Specialty Start Date End Date Michi Hsieh PA [address] [place] [address], [address] [place] [address] PCP - General Physician Retail District Manager 10/08/21
== END 2024-03-29 13:37 | disposition home or self-care (01) ==
LOC: HO.HUSH 13:00
PROVIDERS: PCP Physician Assistant; Visit Provider Urology
DX: R39.81 Functional urinary incontinence (principal); N40.0 Benign prostatic hyperplasia without lower urinary tract symptoms; N39.0 Urinary tract infection, site not specified
CPT/HCPCS: 99204; G2211

== ENCOUNTER → 2024-03-29 13:00 | Outpatient (BNVA) | payer MEDICARE, MEDICAID, SELFPAY | PROVIDERS: PCP Physician Assistant; Visit Provider Urology | DX: N40.1 Benign prostatic hyperplasia with lower urinary tract symptoms (principal); R39.81 Functional urinary incontinence; N13.8 Other obstructive and reflux uropathy; N39.0 Urinary tract infection, site not specified | CPT/HCPCS: 51798; 99202 ==

== ENCOUNTER 2024-04-28 09:35 | Outpatient (AMB) | payer MEDICARE, MEDICAID, SELFPAY ==
[2024-04-28 09:43] VITALS: BP 110/72; PULSE 86; O2SAT 97; BMI 25.2
--- NOTE | 2024-04-28 09:43 | A.OFFPC_ITS ---
Vital Signs 04/28/24 09:43 Height 6 ft 1 in Weight 191 lb BMI 25.2 BP 110/72 Blood Pressure Location Lt brachial Position Sitting Pulse 86 Pulse Source Pulse Oximeter Pulse Oximetry (%) 97 Oxygen Delivery Method Room Air Intake Visit Reasons: med f/u Pt Sitter Required: No Accompanied by: Karla & Rebecca-program Allergies clozapine Allergy (Unknown, Verified 04/28/24 09:54) Unknown Medication List - Last Reconciled 04/28/24 by Michi Hsieh PA-C acetaminophen (Tylenol Extra Strength) 1,000 mg (2 x 500 mg) PO Q6H PRN 5 days amlodipine 5 mg PO DAILY 90 days artifi.tears(hypromellose)(PF) 0.3% 1 drp ophthalmic (eye) DAILY PRN 30 days benzonatate 100 mg PO .q8hr PRN bisacodyl 10 mg (2 x 5 mg) PO DAILY [Blood pressure cuff As directed] cholecalciferol (vitamin D3) 1,250 mcg PO .QMONTH citalopram 40 mg PO DAILY clonidine HCl 0.1 mg PO DAILY PRN dextromethorphan-guaifenesin 5-100 mg/5 mL (Robitussin Cough-Chest Congestion DM) 10 mL PO Q6H PRN 30 days dicyclomine 20 mg PO BEDTIME diphenhydramine HCl (Benadryl) 25 mg PO BEDTIME 90 days disposable gloves (Nitrile Exam Gloves) As directed disposable gloves (Biobrane Gloves Large) As directed docusate sodium (Colace) 100 mg PO BID 90 days facial-body wipes As directed incontinence pad, liner, disp As directed Lactobacillus rhamnosus GG (Culturelle) 1 cap PO DAILY 90 days levothyroxine 75 mcg PO DAILY linaclotide (Linzess) 290 mcg PO QAM lisinopril 5 mg PO DAILY loperamide (Imodium A-D) 2 mg PO Q4H PRN lorazepam 1 mg PO DAILY magnesium hydroxide (Milk Of Magnesia Concentrated) 30 mL PO DAILY PRN 30 days melatonin 10 mg PO BEDTIME nitrofurantoin macrocrystal 50 mg PO BEDTIME 90 days olanzapine (Zyprexa) 20 mg PO DAILY omeprazole 20 mg PO .twice a day 90 days tamsulosin 0.4 mg PO BEDTIME 90 days trazodone 150 mg PO BEDTIME 90 days Tobacco use date assessed: 04/28/24 Fall risk assessment: No Falls in past year Last assessed Fall Risk: 04/28/24 Dental Screening Dental Screen Date: 04/28/24 Did you have a dental visit in the last 12 months?: Yes Did you have a dental problem in the last 6 months where you did not have access to dental care?: No Was dental information given to patient?: Patient has dentist HPI med f/u HPI Details Patient is a 73-year-old male here today for follow-up visit. Patient has a past medical history significant for schizophrenia, wheelchair dependent , history of alcohol abuse, distant history of AAA, hypothyroidism, hypertension. CHRONIC MEDICAL CONDITIONS--> .. Chronic constipation: Continues to follow GI specialist and has been using Linzess with good effect. CKD stage 3: Noted most recent creatinine at 1.8. advised staff to keep him well hydrated. Will continue to follow creatinine. .. Hypertension: Blood pressure acceptable today in office. He reports he denies any chest pain, shortness of breath, blurry vision. Is now off blood pressure medication due to having low blood pressures in the past. . Hypothyroidism: Most recent TSH normal. Will continue current dose of levothyroxine. Will continue to follow TSH .. Schizophrenia: Has establish care with psychiatrist Dr. Escalona whom was now managing his his mental health medications --> he does report having some trouble s leeping on lichen new medication to help him sleep. . .. Spinal cord injury: Continues to be wheelchair bound secondary to his spinal cord injury. It is unclear what has caused this though group members from the home report he had had a suicide attempt which caused him to be paralyzed.. Patient is also incontinent of urine and stool. long term requesting scripts for gloves, see any wipes and incontinent pads He does use Pal lift for transfers [facility], [facility] Medical History Annual physical exam Colon cancer screening Recurrent UTI HTN (hypertension) Physical exam Acute diarrhea Hypokalemia Decubitus ulcer of coccyx Hospital discharge follow-up Elevated AFP Hepatitis B core antibody positive Claudia onychomycosis Aortic aneurysm, abdominal ETOH abuse Pernicious anemia Intentional self-harm by jumping from a high place, sequela History of femur fracture Spinal cord injury Fracture of lumbar spine with cord lesion Incontinence of feces Essential (primary) hypertension Hepatitis C Schizophrenia, unspecified Surgical History History of esophagogastroduodenoscopy (EGD) Hx of colonoscopy S/P total hip arthroplasty Social History Housing: Assisted Living Facility Alcohol intake: never Patient Tobacco Use Status: Never used Tobacco e-Cigarette/Vaping Use: Never Used Second Hand Smoke Exposure: No service: No Current occupational status: disabled Cognitive needs: Yes (wheelchair) Hearing needs: No Vision needs: No Questionnaire PHQ-9 Over the last 2 weeks, how often have you been bothered by any of the following problems? 1. Little interest or pleasure in doing things: more than half the days 2. Feeling down, depressed, or hopeless: several days 3. Trouble falling or staying asleep, or sleeping too much: nearly every day 4. Feeling tired or having little energy: several days 5. Poor appetite or overeating: not at all 6. Feeling bad about yourself - or that you are a failure or have let yourself or your family down: more than half the days 7. Trouble concentrating on things, such as reading the newspaper or watching television: several days 8. Moving or speaking so slowly that other people could have noticed. Or the opposite - being so fidgety or restless that you have been moving around a lot more than usual: more than half the days 9. Thoughts that you would be better off or of hurting yourself in some way: more than half the days Total score: 14 14942 - PHQ-9 Billing: Yes Source: Developed by Drs. Dat Jimenez, Kylah Edmondson, Francis Melendez and colleagues, with an educational jethro from [employer]. Thrive Questionnaire Date Thrive assessed: 04/28/24 I am a: Patient What is your living situation today?: I have a steady place to live Within the past 12 months, did the food you bought not last and you didn't have the money to get more?: Never true Within the past 12 months, did you worry whether your food would run out before you got money to buy more?: Never true Do you have trouble paying for medicines?: No Do you have trouble getting transportation to medical appointments?: No Do you have trouble paying your heating and electricity bill?: No Do you have trouble taking care of your child, family member or friend?: No Do you have trouble with day-to-day activities such as bathing, preparing meals, shopping, managing finances, etc.?: No Are you currently unemployed and looking for a job?: No Are you interested in more education?: No Please select the resources that you would like help with: None Currently or been in a relationship where the following occur: No concerns reported THRIVE Score: 0 AUDIT C Alcohol Use Questionnaire (AUDIT-C) 1. How often do you have a drink containing alcohol?: Never 3. How often do you have six or more drinks on one occasion?: Never Total Score: 0 FROILAN-7 AMB Questionnaire FROILAN-7 Date FROILAN - 7 assessed: 04/28/24 Feeling nervous, anxious, or on edge: 1 = Several days Not being able to stop or control worryin = More than half the days Worrying too much about different things: 2 = More than half the days Trouble relaxin = More than half the days Being so restless that it is hard to sit still: 0 = Not at all Becoming easily annoyed or irritable: 2 = More than half the days Feeling afraid as if something awful might happen: 2 = More than half the days Total FROILAN-7 score (0-4 normal; 5-9 mild; 10-14 moderate; 15-21 severe): 11 Source: Developed by Drs. Dat Jimenez, Kylah Edmondson, Francis Melendez and colleagues, with an educational jethro from [employer]. FROILAN-7 Assessment Billing FROILAN-7 Assessment Tool: FROILAN-7 Assessment 36038 Review of Systems Const Denies headache(s) Eyes Denies loss of vision ENT Denies vertigo, Denies dizziness, Denies headache(s) and Denies sore throat Card Denies chest pain, Denies leg edema and Denies lightheadedness Resp Denies cough, Denies hemoptysis and Denies wheezing GI Denies abdominal pain, Denies melena, Reports constipation, Denies diarrhea and Denies vomiting Denies dysuria, Denies urinary frequency and Denies urinary urgency Musc Denies arthralgias, Denies joint swelling, Denies numbness and Denies tingling Neuro Denies Abnormal speech present, Denies behavioral changes, Denies vertigo, Den ies dizziness, Denies headache(s), Denies loss of vision, Denies memory loss, Denies numbness and Denies tingling Psych Denies anxiety, Denies behavioral changes, Denies depression, Denies memory loss and Denies panic attacks Zhen/Lymph Denies easy bleeding and Denies easy bruising Aller/Immun Denies wheezing Physical exam (Primary Care) Vital Signs: Last Vital Signs Pulse 86 04/28/24 09:43 BP 110/72 04/28/24 09:43 Pulse Ox 97 04/28/24 09:43 Oxygen Delivery Method Room Air 04/28/24 09:43 BMI result Body Mass Index 25.2 Tobacco/Smoking Status: Tobacco use Status Tobacco use date assessed 04/28/24 04/28/24 09:55 Patient Tobacco Use Status Never used Tobacco 04/28/24 09:48 e-Cigarette/Vaping Use Never Used 04/28/24 09:48 PHQ-9: PHQ-9 Score PHQ-9: Total score 14 04/28/24 09:56 Thrive Assessment: Date of Thrive Assessment Date Thrive assessed 04/28/24 04/28/24 09:48 Currently or been in a relationship where the following occur: No concerns reported Const General: healthy appearing, no acute distress, alert and awake Nutritional Appearance: well nourished Orientation/consciousness: oriented to person, oriented to place and oriented to time HENMT Ears: TM's normal bilaterally General nose exam: Normal nasal mucous membranes and turbinates present Eyes Conjunctivae: conjunctivae normal Sclerae: sclerae normal Pupils: Equal, round and reactive pupils present Neck Neck: Yes no lymphadenopathy and Yes no JVD Thyroid: Thyroid normal Carotids: no bruits Resp Effort & Inspection: normal respiratory effort and not tachypneic Auscultation: no crackles, no rales, no rhonchi and no wheezes Cardio Rate: regular rate Rhythm: regular rhythm Heart sounds: no murmurs and normal S1 and S2 GI Palpation (GI): Soft to palpation, nontender, no hepatomegaly and no splenomegaly Auscultation: normal bowel sounds Skin General skin exam: no rashes or lesions noted and dry skin Neuro General: oriented to person, oriented to place and oriented to time Cranial nerves: Yes Equal, round and reactive pupils present Speech: No Abnormal speech present Gait exam (Neuro): Normal gait present Motor exam (neuro): no tremor noted Extrem Right upper extremity: full ROM Left upper extremity: full ROM Right lower extremity: full ROM; no edema Left lower extremity: full ROM; no edema Psych Mental Status: mental status grossly normal Speech and movement: Normal speech and movement present Affect: normal affect Attitude: cooperative Thought process: Normal thought process present Coding Level of Care Code Est Pt Level 4 (96023) Diagnoses Essential (primary) hypertension I10 Hypothyroidism, unspecified type E03.9 Hypothyroidism type: unspecified High cholesterol E78.00 Schizophrenia, unspecified type F20.9 Schizophrenia type: unspecified Additional Codes FROILAN-7 Assessment Billing - FROILAN-7 Assessment Tool: FROILAN-7 Assessment 66118 ([id number]) PHQ-9 - 47806 - PHQ-9 Billing: Yes ([id number]) Assessment & Plan Assessment & Plan (1) Essential (primary) hypertension: Code(s): I10 - Essential (primary) hypertension Category: Medical Plan: Patient's blood pressure acceptable today in office. Will continue on his current dose of antihypertensive medication with goal blood pressure to remain below 140/90 (2) Hypothyroidism: Code(s): E03.9 - Hypothyroidism, unspecified Category: Medical Qualifiers: Hypothyroidism type: unspecified Qualified Code(s): E03.9 - Hypothyroidism, unspecified Plan: Patient continues levothyroxine 75 mcg. Advised to get labs done before upcoming appointment to ensure normal TSH (3) High cholesterol: Code(s): E78.00 - Pure hypercholesterolemia, unspecified Category: Medical Plan: Patient has a history of borderline high total cholesterol. Will check a fasting lipid panel to ensure stable cholesterol and LDL. (4) Schizophrenia, unspecified: Code(s): F20.9 - Schizophrenia, unspecified Category: Medical Qualifiers: Schizophrenia type: unspecified Qualified Code(s): F20.9 - Schizophrenia, unspecified Plan: Patient continues to follow psychiatry for his schizophrenia and anxiety disorder. He does mention having panic attacks from time to time. Medications: New sennosides-docusate sodium 8.6-50 mg (Colace 2-In-1) 1 tab-cap PO DAILY 90 days 90 tabs 1RF K59.09 - Other constipation, N40.0 - Benign prostatic hyperplasia without lower urinary tract symptoms diphenhydramine HCl (Allergy Relief (diphenhydramine)) 25 mg PO BEDTIME 90 days PRN 90 tabs 1RF sleep R13.10 - Dysphagia, unspecified omeprazole magnesium 20 mg PO BID 90 days 180 tabs 1RF K59.09 - Other constipation, N40.0 - Benign prostatic hyperplasia without lower urinary tract symptoms doxazosin 1 mg PO BEDTIME 90 days 90 tabs 1RF N40.0 - Benign prostatic hyperplasia without lower urinary tract symptoms Refilled benzonatate 100 mg PO .q8hr PRN 30 caps 0RF cough R05.9 - Cough, unspecified Discontinued omeprazole Discontinued Reason: Doctor's Order 20 mg PO .twice a day 90 days 180 caps 1RF K29.81 - Duodenitis with bleeding tamsulosin Discontinued Reason: Doctor's Order 0.4 mg PO BEDTIME 90 days 90 caps 1RF N13.8 - Other obstructive and reflux uropathy, N40.1 - Benign prostatic hyperplasia with lower urinary tract symptoms, R39.81 - Functional urinary incontinence bisacodyl Discontinued Reason: Doctor's Order 10 mg (2 x 5 mg) PO DAILY 56 tabs 3RF
== END 2024-04-28 10:34 | disposition home or self-care (01) ==
LOC: HO.HMCH 09:35
PROVIDERS: PCP Physician Assistant; Visit Provider Physician Assistant
DX: I10 Essential (primary) hypertension (principal); E03.9 Hypothyroidism, unspecified; E78.00 Pure hypercholesterolemia, unspecified; F20.9 Schizophrenia, unspecified

== ENCOUNTER → 2024-04-28 09:35 | Outpatient (BNVA) | payer MEDICARE, MEDICAID, SELFPAY | PROVIDERS: PCP Physician Assistant; Visit Provider Physician Assistant | DX: I10 Essential (primary) hypertension (principal); E03.9 Hypothyroidism, unspecified; E78.00 Pure hypercholesterolemia, unspecified; F20.9 Schizophrenia, unspecified | CPT/HCPCS: 96127; 99212 ==

== ENCOUNTER 2024-05-03 09:43 | Outpatient (REF) | payer MEDICARE, MEDICAID, SELFPAY ==
--- NOTE | ~2024-05-03 | XR_ITS ---
EXAMINATION: XR CHEST 2 VIEWS HISTORY: R07.9 - Chest pain, unspecified COMPARISON: Comparison is made with the prior examination dated 8. FINDINGS: AP and lateral views of the chest are submitted. There is new elevation of the right hemidiaphragm with adjacent subsegmental atelectasis. The left lung is clear. There is no pleural effusion, pneumothorax, or pulmonary vascular congestion. The heart is normal in size. The bones are intact. XR/XR chest 2V IMPRESSION: New elevation of the right hemidiaphragm with adjacent subsegmental atelectasis. Findings may represent diaphragmatic paralysis or a hernia. Electronically signed by: Dat Miranda MD 05/04/2024 07:18 AM EDT
[2024-05-03 10:42] LABS: Hematocrit 41.6 % (42.0-52.0); Hemoglobin 14.2 g/dl (14.0-18.0); Mean Corpuscular HGB Conc 34.1 g/dl (31.0-36.0); Mean Corpuscular Hemoglobin 33.1 pg (27.0-33.0); Mean Platelet Volume 9.3 fL (9.4-12.4); Platelet Count 178 X10*3/uL (160-400); Red Blood Count 4.29 X10*6/uL (4.60-5.80); Red Cell Distribution Width 13.1 % (11.0-16.0); White Blood Count 5.1 X10*3/uL (4.8-10.8)
[2024-05-03 11:55] LABS: Alanine Aminotransferase 58 U/L (0-40); Albumin Level 4.2 g/dL (3.5-5.0); Alkaline Phosphatase 169 U/L (39-117); Anion Gap 11 (12-20); Aspartate Amino Transferase 241 U/L (5-37); Bilirubin Total 0.6 mg/dL (0.0-1.0); Blood Urea Nitrogen 39 mg/dL (9-16); Calcium 9.6 mg/dL (8.4-10.2); Carbon Dioxide 21 mmol/L (22-29); Chloride 113 mmol/L (96-108); Cholesterol 179 mg/dL (<200); Estimated Glomerular Filt Rate 38; Glucose Fasting 85 mg/dL (60-99); HDL Cholesterol 39 mg/dL (>40); LDL Cholesterol Calculated 114 mg/dL (<100); Potassium 5.8 mmol/L (3.3-5.1); Sodium 139 mmol/L (135-145); Total Protein 8.1 g/dL (6.5-8.0); Triglycerides 134 mg/dL (<150)
[2024-05-03 11:56] LABS: Prostate Specific Antigen Scr 3.38 ng/mL (<0.05-4.0)
[2024-05-03 12:03] LABS: TSH reflex Free T4 1.97 uIU/mL (0.32-4.0)
== END 2024-05-03 09:44 | disposition home or self-care (01) ==
LOC: HO.XRAY 09:43
PROVIDERS: PCP Physician Assistant; Visit Provider Physician Assistant
DX: Z12.5 Encounter for screening for malignant neoplasm of prostate (principal); N18.30 Chronic kidney disease, stage 3 unspecified; E03.9 Hypothyroidism, unspecified; N40.0 Benign prostatic hyperplasia without lower urinary tract symptoms; E78.00 Pure hypercholesterolemia, unspecified; J98.11 Atelectasis; R07.9 Chest pain, unspecified
CPT/HCPCS: 36415; 71046; 80053; 80061; 84153; 84443; 85027

== ENCOUNTER → 2024-05-03 10:44 | Outpatient (BNV) | payer MEDICARE, MEDICAID, SELFPAY | PROVIDERS: PCP Physician Assistant; Visit Provider Radiology Diagnostic Radiology | DX: R07.9 Chest pain, unspecified (principal) | CPT/HCPCS: 71046 ==

== ENCOUNTER 2024-07-18 10:01 | Outpatient (REF) | payer MEDICARE, MEDICAID, SELFPAY ==
--- NOTE | ~2024-07-18 | CT_ITS ---
EXAMINATION: CT ABDOMEN WITH IV CONTRAST HISTORY: J98.6 - Disorders of diaphragm COMPARISON: Correlation is made with AP and lateral views of the chest dated 05/03/2024. TECHNIQUE: CT scan of the abdomen was performed following administration of 85 mL Omnipaque 350 using standard departmental protocol. Coronal and sagittal reformatted images were generated and reviewed. The patient received oral contrast material. This CT exam was performed with one or more of the following dose reduction techniques: automated exposure control, adjustment of the mA and/or kV according to patient size, use of iterative reconstruction technique. DLP: 575 mGy-cm FINDINGS: The examination is limited by patient motion. There is streak artifact from patient's arms which were present at his sides during the examination. LOWER CHEST: There is elevation of the right hemidiaphragm with adjacent subsegmental atelectasis. The visualized left lung base is clear. There is no pleural effusion. CARDIOVASCULATURE: The heart is normal in size. There is no pericardial effusion. LIVER: The liver is normal in size and contour. There is gas within the biliary system of the liver. No liver mass is identified. The hepatic and portal veins are patent. GALLBLADDER / BILE DUCTS: There is cholelithiasis. A stent is noted in the common bile duct. SPLEEN: The spleen is normal in size. No focal splenic lesion is identified. PANCREAS: The pancreas is unremarkable in appearance. ADRENAL GLANDS: Within normal limits. KIDNEYS/RETROPERITONEUM: The kidneys are atrophic. No renal calculi are identified. There is no hydronephrosis. No renal masses are identified. LYMPH NODES: No abdominal lymphadenopathy. VASCULATURE: The abdominal aorta demonstrates atherosclerotic calcification. There is a 4.1 cm infrarenal abdominal aortic aneurysm containing a large amount of mural thrombus. MESENTERY/PERITONEUM: No free fluid. No masses. There is no free intraperitoneal gas. STOMACH: The stomach is unremarkable. SMALL BOWEL: The visualized small bowel is normal in caliber. COLON: The visualized portion of the colon is unremarkable. A normal appendix is visualized. BONES / SOFT TISSUES: No suspicious bony or soft tissue abnormalities. CT/CT abdomen w IV con IMPRESSION: 1. Cholelithiasis. Stent within the common bile duct and gas within the biliary system of the liver. 2. Elevated right hemidiaphragm. 3. 4.1 cm infrarenal abdominal aortic aneurysm. Electronically signed by: Dat Miranda MD 07/18/2024 01:22 PM EDT RP
--- OUTSIDE RECORDS SUMMARY | 2024-07-18 11:01 | XMS_ITS | Clinical Summary ---
Author Organization [address] [facility] Address [address] [place] [address] Phone Care Team Providers Care General Assembler Name Role Phone Michi Hsieh Primary Care [...] C antibody test positive 05/02/2021 Hip fracture ([facility] V24, [facility] V28) 05/03/19 Hypertension 05/02/2021 Hypothyroidism 05/02/2021 Pernicious anemia 05/02/2021 Schizophrenia ([facility] V24, [facility] V28) 022 Medical History Medical History Date Comments Hip fracture ([facility] V24, [facility] V28) DX:Hip fracture (HCC) Schizophrenia ([facility] V24, [facility] V28) 05/03/19 DX:Schizophrenia (HCC) Hypertension 05/02/2021 DX:Hypertension Thyroid condition 05/02/2021 [...] - - Weight 79.4 kg (175 lb) 04/07/2024 11:42 AM EST Height 185.4 cm (6' 0.99 ) 04/07/2024 11:[address] Body Mass Index 23.09 04/07/2024 11:42 AM EST Plan of Treatment Health Maintenance Due Date Last Done Comments Hepatitis A Vaccines (1 of 2 - Risk 2-dose series) 1968 Zoster Vaccines (1 of 2) 06/08/1999 Hepatitis B Vaccines (1 of 3 - Risk 3-dose series) 2009 Pneumococcal Vaccine: 50+ Years (2 of 2 - PCV) 07/23/2021 07/23/2020, 02/27/2005 Cholesterol Screening (Lipid Panel) 01/19/2022 Colorectal Cancer Screening: Colonoscopy 01/19/2022 Depression Screening 01/19/2022 Falls Risk Assessment 01/19/2022 Hepatitis C Screening 01/19/2022 Medicare Annual Wellness Visit 01/19/2022 Social Influencers of Health Screening 01/19/2022 Hypertension/CHF/CAD Annual BMP Blood Test 01/22/2022 COVID-19 Vaccine ( season) 2023 11/21/2020, 03/03/2020, 02/11/2020 RSV Immunization Adult Patients (1 - 1-dose 75+ series) 2024 DTaP,Tdap,and [...] age to complete this topic Meningococcal B Vaccine Aged Out No l onger eligible based on patient's age to complete this topic RSV Immunization Patients Under 20 months Aged Out No longer eligible based on patient's age to complete this topic Varicella Vaccines Aged Out No longer eligible based on patient's age to complete this topic Insurance MEDICARE MEDICAID - [place] Care Teams General Assembler Relationship Specialty Start Date End Date Michi Hsieh PA PCP - General Internal Medicine 04/16/21
[2024-07-18] MEDS: Barium Sulfate Oral (Berry) 450 ML ORAL.SUSP PO (13:04)
[2024-07-18] MEDS: iohexoL 350 MG/ML 100 ML INFUS..BTL 85 ML IV (13:05)
[2024-07-19 14:42] LABS: Creatinine POC 1.7 mg/dL (0.5-1.4); GFR POC 41
== END 2024-07-18 10:02 | disposition home or self-care (01) ==
LOC: HO.CT 10:01
PROVIDERS: PCP Physician Assistant; Visit Provider Physician Assistant
DX: J98.6 Disorders of diaphragm (principal); R74.8 Abnormal levels of other serum enzymes
CPT/HCPCS: 74160; 82565; Q9967

== ENCOUNTER → 2024-07-18 10:12 | Outpatient (BNV) | payer MEDICARE, MEDICAID, SELFPAY | PROVIDERS: PCP Physician Assistant; Visit Provider Radiology Diagnostic Radiology | DX: K80.20 Calculus of gallbladder without cholecystitis without obstruction (principal); I71.40 Abdominal aortic aneurysm, without rupture, unspecified | CPT/HCPCS: 74160 ==

== ENCOUNTER 2024-07-22 09:25 | Outpatient (AMB) | payer MEDICARE, MEDICAID, SELFPAY ==
--- NOTE | 2024-07-22 09:34 | MHC.PC.OV ---
Vital Signs 07/22/24 09:35 BMI Reason not done Patient refused/unable BP 100/62 Blood Pressure Location Lt brachial Position Sitting Pulse 85 Pulse Source Pulse Oximeter Temp 97.1 F Temp Source Temporal Artery Scan Pulse Oximetry (%) 98 Oxygen Delivery Method Room Air Intake Visit Reasons: [facility] 07/05 cancer in the liver Medical Affairs Specialist Required: No Accompanied by: [employer] Allergies clozapine Allergy (Unknown, Verified 07/22/24 09:38) Unknown Tobacco use date assessed: 04/28/24 Dental Screening Dental Screen Date: 04/28/24 HPI HPI Comments History of Present Illness Details 74 y/o Male patient who presenst to the clinic today for HDF. He was admitted at [facility] on 07/08 - 07/10 for an evalution and management of cholangiocarcinoma. He saw Onco/hem on 07/21 post HDF - Unresectable Non-metastatic Cholangiocarcinoma. Pt will be placed on Hospice Care. [facility] Medical History (Updated 07/22/24 @ 10:09 by Delia Oh NP) Cholangiocarcinoma Annual physical exam Colon cancer screening Recurrent UTI HTN (hypertension) Physical exam Acute diarrhea Hypokalemia Decubitus ulcer of coccyx Hospital discharge follow-up Elevated AFP Hepatitis B core antibody positive Claudia onychomycosis Aortic aneurysm, abdominal ETOH abuse Pernicious anemia Intentional self-harm by jumping from a high place, sequela History of femur fracture Spinal cord injury Fracture of lumbar spine with cord lesion Incontinence of feces Essential (primary) hypertension Hepatitis C Schizophrenia, unspecified Surgical History History of esophagogastroduodenoscopy (EGD) Hx of colonoscopy S/P total hip arthroplasty Social History Housing: Assisted Living Facility Alcohol intake: never Patient Tobacco Use Status: Never used Tobacco e-Cigarette/Vaping Use: Never Used Second Hand Smoke Exposure: No service: No Current occupational status: disabled Cognitive needs: Yes (wheelchair) Hearing needs: No Vision needs: No Questionnaire PHQ-9 Over the last 2 weeks, how often have you been bothered by any of the following problems? 1. Little interest or pleasure in doing things: more than half the days 2. Feeling down, depressed, or hopeless: not at all 3. Trouble falling or staying asleep, or sleeping too much: more than half the days 4. Feeling tired or having little energy: more than half the days 5. Poor appetite or overeating: more than half the days 6. Feeling bad about yourself - or that you are a failure or have let yourself or your family down: not at all 7. Trouble concentrating on things, such as reading the newspaper or watching television: not at all 8. Moving or speaking so slowly that other people could have noticed. Or the opposite - being so fidgety or restless that you have been moving around a lot more than usual: more than half the days 9. Thoughts that you would be better off or of hurting yourself in some way: not at all Total score: 10 Source: Developed by Drs. Dat Jimenez, Kylah Edmondson, Francis Melendez and colleagues, with an educational jethro from [employer] 1. Thrive Questionnaire Date Thrive assessed: 04/28/24 I am a: Patient What is your living situation today?: I have a steady place to live Within the past 12 months, did the food you bought not last and you didn't have the money to get more?: I choose not to answer this question Within the past 12 months, did you worry whether your food would run out before you got money to buy more?: I choose not to answer this question Do you have trouble paying for medicines?: I choose not to answer this question Do you have trouble getting transportation to medical appointments?: I choose not to answer this question Do you have trouble paying your heating and electricity bill?: I choose not to answer this question Do you have trouble taking care of your child, family member or friend?: I choose not to answer this question Do you have trouble with day-to-day activities such as bathing, preparing meals, shopping, managing finances, etc.?: I choose not to answer this question Are you currently unemployed and looking for a job?: I choose not to answer this question Are you interested in more education?: I choose not to answer this question Please select the resources that you would like help with: None Currently or been in a relationship where the following occur: I choose not to answer THRIVE Score: 0 AUDIT C Alcohol Use Questionnaire (AUDIT-C) 1. How often do you have a drink containing alcohol?: Never Total Score: 0 FROILAN-7 AMB Questionnaire FROILAN-7 Date FROILAN - 7 assessed: 04/28/24 Feeling nervous, anxious, or on edge: 0 = Not at all Not being able to stop or control worryin = Not at all Worrying too much about different things: 0 = Not at all Trouble relaxin = Not at all Being so restless that it is hard to sit still: 0 = Not at all Becoming easily annoyed or irritable: 0 = Not at all Feeling afraid as if something awful might happen: 0 = Not at all Total FROILAN-7 score (0-4 normal; 5-9 mild; 10-14 moderate; 15-21 severe): 0 Source: Developed by Drs. Dat Jimenez, Kylah Edmondson, Francis Melendez and colleagues, with an educational jethro from [employer] 1. Review of Systems Const All systems reviewed & are unremarkable except as noted in HPI and below Physical exam (Primary Care) Vital Signs: Last Vital Signs Temp 97.1 F 07/22/24 09:35 Pulse 85 07/22/24 09:35 BP 100/62 07/22/24 09:35 Pulse Ox 98 07/22/24 09:35 Oxygen Delivery Method Room Air 07/22/24 09:35 Tobacco/Smoking Status: Tobacco use Status Tobacco use date assessed 04/28/24 07/22/24 09:40 Patient Tobacco Use Status Never used Tobacco 07/22/24 09:40 e-Cigarette/Vaping Use Never Used 07/22/24 09:40 PHQ-9: PHQ-9 Score PHQ-9: Total score 10 07/22/24 10:25 Thrive Assessment: Date of Thrive Assessment Date Thrive assessed 04/28/24 07/22/24 09:40 Currently or been in a relationship where the following occur: I choose not to answer Const General: no acute distress Nutritional Appearance: obese Limitations: behavioral limitations and wheelchair Resp Effort & Inspection: normal respiratory effort Cardio Heart sounds: S1 normal heart sound present and S2 normal heart sound present Neuro Other: 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 Coding Level of Care Code Est Pt Level 4 (64624) Diagnoses Cholangiocarcinoma C22.1 Time Spent (min) 20 Assessment & Plan Assessment & Plan (1) Cholangiocarcinoma: Code(s): C22.1 - Intrahepatic bile duct carcinoma Category: Medical Plan: Managed by Onco/Hematology. He will be on Hospice
[2024-07-22 09:35] VITALS: BP 100/62; PULSE 85; TEMP 36.2; O2SAT 98
--- OUTSIDE RECORDS SUMMARY | 2024-07-22 09:51 | XMS_ITS | Clinical Summary ---
Author Organization [address] [facility] Address [address] [place] [address] Phone Care Team Providers Care Signs And Displays Sales Representative Name Role Phone Michi Hsieh Primary Care [...] C antibody test positive 05/02/2021 Hip fracture ([facility] V24, [facility] V28) 05/03/19 Hypertension 05/02/2021 Hypothyroidism 05/02/2021 Pernicious anemia 05/02/2021 Schizophrenia ([facility] V24, [facility] V28) 022 Medical History Medical History Date Comments Hip fracture ([facility] V24, [facility] V28) DX:Hip fracture (HCC) Schizophrenia ([facility] V24, [facility] V28) 05/03/19 DX:Schizophrenia (HCC) Hypertension 05/02/2021 DX:Hypertension [...] Insurance MEDICARE [place]ICAID - [place] Care Teams Signs And Displays Sales Representative Relationship Specialty Start Date End Date Michi Hsieh PA PCP - General Internal Medicine 04/16/21
== END 2024-07-22 10:24 | disposition home or self-care (01) ==
LOC: HO.HMCH 09:25
PROVIDERS: PCP Physician Assistant; Visit Provider Nurse Practitioner Family
DX: C22.1 Intrahepatic bile duct carcinoma (principal)

== ENCOUNTER → 2024-07-22 09:25 | Outpatient (BNVA) | payer MEDICARE, MEDICAID, SELFPAY | PROVIDERS: PCP Physician Assistant; Visit Provider Nurse Practitioner Family | DX: C22.1 Intrahepatic bile duct carcinoma (principal) | CPT/HCPCS: 99212 ==